=== PATIENT | male | born 1940 | race Caucasian/White ===

== ENCOUNTER → 2023-04-30 11:12 | Outpatient (REF) | payer OTHER, SELFPAY ==
[2023-04-30 16:03] LABS: % Basophils 0.8 % (0-2); % Eosinophils 2.1 % (0-6); % Immature Granulocytes 0.3 % (0-0.5); % Lymphocytes 23.8 % (20.5-51.1); % Monocytes 6.5 % (1.7-9.3); % Neutrophils 66.5 % (42.2-75.2); Absolute Eosinophils 0.1 10^3/uL (0-0.7); Absolute Lymphocytes 0.9 10^3/uL (1.2-3.4); Absolute Monocytes 0.3 10^3/uL (0.1-0.6); Absolute Neutrophils 2.6 10^3/uL (1.4-6.5); Hematocrit 37.9 % (39.0-52.0); Hemoglobin 13.4 g/dL (13.0-18.0); Mean Corp Hgb Conc. 35.4 g/dL (33.0-37.0); Mean Corpuscular Hgb 33.1 pg (27.0-31.0); Mean Corpuscular Volume 93.6 fL (80.0-94.0); Mean Platelet Volume 9.7 fL (7.4-10.4); Nucleated Red Blood Cells % 0 % (-); Platelet Count 213 10^3/uL (130-400); Red Blood Cell Count 4.05 10^6/uL (4.70-6.10); Red Cell Dist. Width 14.4 % (11.5-14.5); White Blood Cell Count 3.9 10^3/uL (4.8-10.8)
[2023-04-30 16:19] LABS: ALT (SGPT) 17 U/L (0-50); AST (SGOT) 27 U/L (17-59); Albumin 3.5 g/dl (3.5-5.0); Alkaline Phosphatase 121 U/L (38-126); Blood Urea Nitrogen 25 mg/dl (9-20); Calcium 9.4 mg/dl (8.4-10.2); Carbon Dioxide 30 mmol/L (22-30); Chloride 98 mmol/L (98-107); Glucose 90 mg/dl (70-99); HDL Cholesterol 32 mg/dl; LDL Cholesterol, Calculated 77 mg/dl; Potassium 4.7 mmol/L (3.5-5.1); Sodium 133 mmol/L (135-145); Total Bilirubin 0.6 mg/dl (0.2-1.3); Total Cholesterol 124 mg/dl (50-199); Total Protein 7.8 g/dl (6.3-8.2); Triglyceride 77 mg/dl (10-149); Very Low Density Lipoprotein 15 mg/dl (0-30); eGFR > 60.00
== END ==
LOC: HWLAB 11:12
PROVIDERS: ATTENDING PHYSICIAN Internal Medicine Cardiovascular Disease; FAMILY PHYSICIAN Family Medicine
DX: I10 Essential (primary) hypertension (principal); E78.5 Hyperlipidemia, unspecified
CPT/HCPCS: 36415; 80053; 80061; 85025

== ENCOUNTER → 2023-06-17 11:46 | Outpatient (REF) | payer OTHER, SELFPAY ==
[2023-06-17 12:20] LABS: Hematocrit 29.6 % (39.0-52.0); Hemoglobin 9.9 g/dL (13.0-18.0); Mean Corp Hgb Conc. 33.4 g/dL (33.0-37.0); Mean Corpuscular Hgb 31.8 pg (27.0-31.0); Mean Corpuscular Volume 95.2 fL (80.0-94.0); Platelet Count 373 10^3/uL (130-400); Red Blood Cell Count 3.11 10^6/uL (4.70-6.10); Red Cell Dist. Width 15.8 % (11.5-14.5); White Blood Cell Count 5.7 10^3/uL (4.8-10.8)
[2023-06-17 12:33] LABS: Blood Urea Nitrogen 17 mg/dl (9-20); Calcium 8.7 mg/dl (8.4-10.2); Carbon Dioxide 26 mmol/L (22-30); Chloride 103 mmol/L (98-107); Glucose 90 mg/dl (70-99); Magnesium 1.8 mg/dl (1.6-2.3); Potassium 4.8 mmol/L (3.5-5.1); Sodium 129 mmol/L (135-145); eGFR > 60.00
== END ==
LOC: OLABN 11:46
PROVIDERS: ATTENDING PHYSICIAN Student in an Organized Health Care Education/Training Program
DX: I10 Essential (primary) hypertension (principal)
CPT/HCPCS: 36415; 80048; 83735; 85027

== ENCOUNTER 2023-07-14 23:00 | Emergency (ER) | payer OTHER, SELFPAY ==
[2023-07-14 23:02] VITALS: BP 126/66
[2023-07-14 23:23] LABS: % Basophils 0.5 % (0-2); % Immature Granulocytes 0.3 % (0-0.5); % Lymphocytes 23.6 % (20.5-51.1); % Monocytes 10.7 % (1.7-9.3); % Neutrophils 61.9 % (42.2-75.2); Absolute Eosinophils 0.2 10^3/uL (0-0.7); Absolute Lymphocytes 1.4 10^3/uL (1.2-3.4); Absolute Monocytes 0.7 10^3/uL (0.1-0.6); Absolute Neutrophils 3.7 10^3/uL (1.4-6.5); Hematocrit 30.4 % (39.0-52.0); Hemoglobin 10.5 g/dL (13.0-18.0); Mean Corp Hgb Conc. 34.5 g/dL (33.0-37.0); Mean Corpuscular Hgb 32.5 pg (27.0-31.0); Mean Corpuscular Volume 94.1 fL (80.0-94.0); Nucleated Red Blood Cells % 0 % (-); Platelet Count 270 10^3/uL (130-400); Red Blood Cell Count 3.23 10^6/uL (4.70-6.10); Red Cell Dist. Width 16.2 % (11.5-14.5); White Blood Cell Count 6.1 10^3/uL (4.8-10.8)
--- NOTE | 2023-07-14 23:39 | ED.MUSCINJ ---
HPI-Injury
<FE Gomez - Last Filed: 07/15/23 06:17>
General
Chief Complaint: Musculo-Skeletal Complaint
Source: patient
Exam Limitations: non verbal-adult and other (Unable to understand patient)
Time Seen by Provider: 07/14/23 23:13
Travel History
Have you had any contact with someone who has COVID-19?: No
Do you have any symptoms of coronavirus? Fever > 100 degrees, chills, cough, shortness of breath, sore throat, loss of taste or smell, muscle aches, or headache?: No
History of Present Illness-Injury
Initial Injury comments:
This is an 82 YO M with a PMH of acute ischemic heart disease, hemiplegia affecting the left nondominant side, polyneuropathy, hyperlipidemia, overactive bladder, hypocalcemia, MDD, and hypo-osmolality, and hyponatremia that presents here today with
a left hip dislocation. History and exam were limited. Unable to understand patient, due to loss of teeth.
Left hip X-Ray from 07/06/23 showed superior dislocation of the left hip arthroplasty without hardware complication or acute fracture or dislocation. Degenerative change of the contralateral hip and SI joint. No joint effusion. No focal soft tissue
swelling.
Past History
<FE Gomez - Last Filed: 07/15/23 06:17>
Past History
ED Past Medical History: Hypercholesterolemia
Review of Systems
<FE Gomez - Last Filed: 07/15/23 06:17>
Review of Systems
Unable to obtain full review of systems at this time due to: other (Unable to understand patient, loss of teeth)
Phy Exam
<FE Gomez - Last Filed: 07/15/23 06:17>
Physical Exam
Physical Exam:
Regular rate and rhythm, normal respirations, bandage on left hip, left hip was internally rotated
Injury Course
<Alma Castillo, [facility] - Last Filed: 07/15/23 06:17>
Orders/Labs/Results
Orders:
Orders
07/14/23 23:18
Complete Blood Count/With Diff Urgent
Comprehensive Metabolic Panel Urgent
07/15/23 00:00
CR Hip - LT w/wo Pel 2-3 Vw* Urgent
Reason For Exam: probable dislocation
Include a pelvis x-ray?: Yes
07/15/23 01:10
Propofol [Diprivan] 20 ml .ROUTE .STK-MED
07/15/23 01:22
Propofol [Diprivan] 110 mg IV NOW STA
07/15/23 01:33
CR Hip - LT without Pel 1 Vw Stat
Comment:
Reason For Exam: L hip reduction
07/15/23 02:07
Knee Immobilizer Left-Treatmen ONCE
Knee, Left 4 or More Views [CR Knee - Left 4 Or More View*] Urgent
Comment:
Reason For Exam: pain
Abnormal Lab Results
07/14/23
23:18
RBC 3.23 L 10^6/uL
(4.70-6.10)
Hgb 10.5 L g/dL
(13.0-18.0)
Hct 30.4 L %
(39.0-52.0)
MCV 94.1 H fL
(80.0-94.0)
MCH 32.5 H pg
(27.0-31.0)
RDW 16.2 H %
(11.5-14.5)
Absolute Monos (auto) 0.7 H 10^3/uL
(0.1-0.6)
Monocytes % 10.7 H %
(1.7-9.3)
Sodium 128 L mmol/L
(135-145)
BUN 24 H mg/dl
(9-20)
Glucose 127 H mg/dl
(70-99)
Alkaline Phosphatase 156 H U/L
(38-126)
Albumin 2.7 L g/dl
(3.5-5.0)
07/14/23 23:18
07/14/23 23:18
<Mario Rodriguez, DO - Last Filed: 07/15/23 03:08>
Orders/Labs/Results
Orders:
Orders
07/14/23 23:18
Complete Blood Count/With Diff Urgent
Comprehensive Metabolic Panel Urgent
07/15/23 00:00
CR Hip - LT w/wo Pel 2-3 Vw* Urgent
Reason For Exam: probable dislocation
Include a pelvis x-ray?: Yes
07/15/23 01:10
Propofol [Diprivan] 20 ml .ROUTE .STK-MED
07/15/23 01:22
Propofol [Diprivan] 110 mg IV NOW STA
07/15/23 01:33
CR Hip - LT without Pel 1 Vw Stat
Comment:
Reason For Exam: L hip reduction
07/15/23 02:07
Knee Immobilizer Left-Treatmen ONCE
Knee, Left 4 or More Views [CR Knee - Left 4 Or More View*] Urgent
Comment:
Reason For Exam: pain
Abnormal Lab Results
07/14/23
23:18
RBC 3.23 L 10^6/uL
(4.70-6.10)
Hgb 10.5 L g/dL
(13.0-18.0)
Hct 30.4 L %
(39.0-52.0)
MCV 94.1 H fL
(80.0-94.0)
MCH 32.5 H pg
(27.0-31.0)
RDW 16.2 H %
(11.5-14.5)
Absolute Monos (auto) 0.7 H 10^3/uL
(0.1-0.6)
Monocytes % 10.7 H %
(1.7-9.3)
Sodium 128 L mmol/L
(135-145)
BUN 24 H mg/dl
(9-20)
Glucose 127 H mg/dl
(70-99)
Alkaline Phosphatase 156 H U/L
(38-126)
Albumin 2.7 L g/dl
(3.5-5.0)
07/14/23 23:18
07/14/23 23:18
Procedures
<Mario Rodriguez DO - Last Filed: 07/15/23 03:08>
Moderate Sedation
ASA Risk Score: Class III
Chart and allergies reviewed: Yes
Consent for anesthesia obtained: Yes
Time out completed (validating right patient & procedure): Yes
History of difficult intubation: No
Airway free of obstruction: Yes
Patient has a gag reflex: Yes
Patient is able to open mouth: Yes
Patient has no dentures: No
Patient has no loose teeth: No
Medication administered by Provider during Moderate Sedation: IV Propofol (mg)
Total dose administered: 100
Time drug administered: 02:20
Joint/Fracture Reduction
Left Hip:
Indication for procedure:: dislocation
Procedure completed by: myself
Consent form signed: Yes
Anesthesia/sedation: Moderate sedation
Injury was: closed
Further treatement: needs re-check only
Post reduction exam: stable
Capillary Refill: normal
<ST JaosnPA - Last Filed: 07/15/23 06:17>
MDM/Problems Addressed
Differential Diagnosis Includes:
Left hip dislocation
<FE Gomez - Last Filed: 07/15/23 06:17>
*Critical Care Note
Total Time (30-74mins, 75-104mins- exclusive of procedures): Not Applicable
<Mario Rodriguez DO - Last Filed: 07/15/23 03:08>
Update Note
Update Note:
07/15/2023 0108 AM: Spoke with Sister Nuvia Lyons gave verbal consent for the procedural sedation and closed reduction of the left hip. This was witnessed by nursing. Consent form signed and is on the chart.
Spoke with orthopedics who agreed that patient can go back to [facility] with a knee immobilizer. Satisfied with the reduction.
ED Attending Note
<FE Gomez - Last Filed: 07/15/23 06:17>
-
Portions of this chart may have been created with voice recognition software.� Occasional wrong word or��sound alike� substitutions may have occurred due to the inherent limitations of voice recognition software.
<Mario Rodriguez DO - Last Filed: 07/15/23 03:08>
ED Attending Note
Patient seen and examined by attending physician: Yes
I performed the substantive portion of visit, reviewed & personally made and approve the management plan that is documented in note by myself or DANIA.: Yes
Discharge Plan
Departure
Patient Disposition: Usp/SNF
Date of Disposition: 07/15/23
Time of Disposition: 03:07
Discharge Problem:
Dislocation, hip, Previous hip fracture, Acute knee pain
Prescriptions:
No Action
Unobtainable
0
Referrals:
Maykel Bynum MD [Active] - As needed
Stew Pisano DO [Family Provider] -
Interventions
Interventions:
*Risk Screen - Suicide Last Done: 07/14/23 23:53
*General Assessment Last Done: 07/15/23 00:37
*Neglect/Abuse Screening Last Done: 07/14/23 23:53
ED- Fall Risk Assessment Last Done: 07/14/23 23:53
*ED COVID-19 Vaccine History Last Done: 07/15/23 03:04
*Nursing Disposition Last Done: 07/15/23 03:48
ED-Musculoskeletal Assessment Last Done: 07/15/23 03:08
Discharge Date and Time
Discharge Date/Time: 07/15/23 03:54
Print Language: STATELESS
[2023-07-15] VITALS (12 sets, daily range): BP systolic 120–142; BP diastolic 58–76
[2023-07-15 00:19] LABS: ALT (SGPT) 18 U/L (0-50); AST (SGOT) 27 U/L (17-59); Albumin 2.7 g/dl (3.5-5.0); Alkaline Phosphatase 156 U/L (38-126); Blood Urea Nitrogen 24 mg/dl (9-20); Calcium 9.1 mg/dl (8.4-10.2); Carbon Dioxide 24 mmol/L (22-30); Chloride 99 mmol/L (98-107); Glucose 127 mg/dl (70-99); Potassium 4.9 mmol/L (3.5-5.1); Sodium 128 mmol/L (135-145); Total Bilirubin 0.4 mg/dl (0.2-1.3); Total Protein 7.1 g/dl (6.3-8.2); eGFR > 60.00
[2023-07-15] MEDS: DIPRIVAN 110 MG IV (01:22)
== END 2023-07-15 03:54 ==
LOC: EMR 23:00
PROVIDERS: EMERGENCY PHYSICIAN Student in an Organized Health Care Education/Training Program; FAMILY PHYSICIAN Student in an Organized Health Care Education/Training Program
DX: T84.021A Dislocation of internal left hip prosthesis, initial encounter (principal); Y79.2 Prosthetic and other implants, materials and accessory orthopedic devices associated with adverse incidents; I24.9 Acute ischemic heart disease, unspecified; G62.9 Polyneuropathy, unspecified; E78.00 Pure hypercholesterolemia, unspecified; N32.81 Overactive bladder
CPT/HCPCS: 99284; 27265; 99152; 73501; 73502; 73564; 80053; 85025

== ENCOUNTER 2023-08-26 11:37 | Emergency (ER) | payer OTHER, SELFPAY ==
[2023-08-26 11:40] VITALS: BP 124/64
[2023-08-26 11:42] VITALS: BP 124/64; BMI 21.8
[2023-08-26 12:16] LABS: % Basophils 0.2 % (0-2); % Eosinophils 0.1 % (0-6); % Immature Granulocytes 0.2 % (0-0.5); % Lymphocytes 3.7 % (20.5-51.1); % Monocytes 2.9 % (1.7-9.3); % Neutrophils 92.9 % (42.2-75.2); Absolute Lymphocytes 0.5 10^3/uL (1.2-3.4); Absolute Monocytes 0.4 10^3/uL (0.1-0.6); Hematocrit 34.9 % (39.0-52.0); Hemoglobin 11.6 g/dL (13.0-18.0); Mean Corp Hgb Conc. 33.2 g/dL (33.0-37.0); Mean Corpuscular Hgb 31.5 pg (27.0-31.0); Mean Corpuscular Volume 94.8 fL (80.0-94.0); Mean Platelet Volume 9.6 fL (7.4-10.4); Nucleated Red Blood Cells % 0 % (-); Platelet Count 221 10^3/uL (130-400); Red Blood Cell Count 3.68 10^6/uL (4.70-6.10); Red Cell Dist. Width 15.4 % (11.5-14.5); White Blood Cell Count 12.9 10^3/uL (4.8-10.8)
--- NOTE | 2023-08-26 12:25 | ED.GENMED ---
History of Present Illness
General
Chief Complaint: Abdominal Symptoms
Source: ambulance crew and long-term
Time Seen by Provider: 08/26/23 11:58
History of Present Illness
History of Present Illness:
82-year-old male presents to to the emergency room from long-term for evaluation of nausea vomiting. Staff also felt as if his abdomen was distended. Patient has had a significant ischemic stroke in the past resulting in left hemiplegia.
Patient has some difficulty communicating. Patient seems to refute abdominal pain at this point. No vomiting here.
Past History
Past History
ED Past Medical History: Hypercholesterolemia
Phy Exam
Physical Exam
Physical Exam:
General: Awake, Alert, communicatively disabled from previous CVA
Vitals: Rectal temp of 101.7
Head: Atraumatic
Eyes: Pupils equal, EOMI
Throat: Airway intact, no exudates, mildly dry mucosa
Neck: Trachea midline
Lungs: Clear and equal b/l
Heart: Regular rate, no murmurs
Abd: Soft, distended but does not appear to be tender, No pulsatile mass
Rectal: Liquid stool noted
Neuro: Left hemiplegia
Skin: Warm, dry, no rash
Extremities: pulses equal b/l, no edema
Scores
PESI
Age: 82
Sex: Male
History of cancer: No
History of heart failure: No
History of chronic lung disease: No
Heart rate >/= 110: No
Systolic BP <100 mmHg: No
Respiratory rate >/= 30: No
Temperature <36�C/96.8�F: No
Altered mental status (disorientation, lethargy, stupor, or coma): No
O2 saturation <90%: No
Score: 94
Class: Class 3: <106 (moderate mortality 3.2-7.1%)
Course
Orders/Labs/Results
Orders:
Orders
08/26/23 11:38
IV Insert/Care/Rem.- Treatment PRN
08/26/23 11:49
EKG [Electrocardiogram (*1)] Urgent
Reason for Study: Shortness of Breath
EKG- Treatment ONCE
08/26/23 11:51
Complete Blood Count/With Diff Urgent
Comprehensive Metabolic Panel Urgent
Lipase Urgent
Urinalysis Reflex To Culture Urgent
Date Specimen was Collected: 08/26/23
Time Specimen was Collected: 11:39
08/26/23 12:23
CR Chest - 2 Views Urgent
Comment:
Reason For Exam: fever
08/26/23 12:24
CT Abd/pelvis W Iv Cont Urgent
Comment:
Reason For Exam: fever, abd pain and distension
0.9% Sodium Chloride 500 ml [Nss] 500 ml IV BOLUS
Acetaminophen [Tylenol] 650 mg PO NOW STA
08/26/23 12:35
COVID-19 Antigen Urgent
Source: Nasal Swab
Lactic Acid Urgent
08/26/23 14:43
LevoFLOXacin [Levaquin] 500 mg PO NOW STA
08/26/23 14:45
Enema- Treatment ONCE
Type: Milk of Molasses
Abnormal Lab Results
08/26/23
11:51
WBC 12.9 H 10^3/uL
(4.8-10.8)
RBC 3.68 L 10^6/uL
(4.70-6.10)
Hgb 11.6 L g/dL
(13.0-18.0)
Hct 34.9 L %
(39.0-52.0)
MCV 94.8 H fL
(80.0-94.0)
MCH 31.5 H pg
(27.0-31.0)
RDW 15.4 H %
(11.5-14.5)
Absolute Neuts (auto) 12.0 H 10^3/uL
(1.4-6.5)
Absolute Lymphs (auto) 0.5 L 10^3/uL
(1.2-3.4)
Neutrophils % 92.9 H %
(42.2-75.2)
Lymphocytes % 3.7 L %
(20.5-51.1)
Sodium 129 L mmol/L
(135-145)
Glucose 114 H mg/dl
(70-99)
Alkaline Phosphatase 148 H U/L
(38-126)
Albumin 2.9 L g/dl
(3.5-5.0)
08/26/23 11:51
08/26/23 11:51
Vital Signs
Initial and Last Documented VS:
Initial Vital Signs
BP
124/64
08/26/23 11:40
Last Documented Vital Signs
Temp Pulse Resp BP Pulse Ox
101.7 F H 76 24 128/71 92
08/26/23 12:41 08/26/23 15:00 08/26/23 11:42 08/26/23 15:00 08/26/23 14:30
MDM/Problems Addressed
Differential Diagnosis Includes:
Diverticulitis, obstruction, constipation, urinary tract infection, pneumonia
MDM/Problems Addressed:
Patient found to have a fever here 107. Tylenol given for this. Source of the fever appears to be pneumonia. Patient's urine is not consistent with urinary tract infection. His chest x-ray does show right lower lobe infiltrate. White count
mildly elevated at 12.9. Patient's not hypoxic. He is tolerating oral intake. He has not vomited here at all. CT of the abdomen pelvis was performed given the fever, vomiting and reported abdominal distention. CT shows constipation but no other
acute inflammatory abnormalities in the abdomen. Patient seems stable enough for outpatient management. Vocalizes enema given for constipation. Will also discharge the patient on lactulose.
*Radiology
Radiology exam reviewed: radiology read reviewed
*Pulse Oximetry
Patient hypoxic: no
*EKG
Interpreted by ED Provider?: Yes
Interpretation: abnormal
Heart Rate: 85
Rate: normal
Rhythm: sinus and PAC's
QRS Pattern: normal QRS
Ischemia: no ischemia
*Critical Care Note
Total Time (30-74mins, 75-104mins- exclusive of procedures): Not Applicable
Patient Management
Social determinants of health affecting care: Living situation
ED Attending Note
-
Portions of this chart may have been created with voice recognition software.� Occasional wrong word or��sound alike� substitutions may have occurred due to the inherent limitations of voice recognition software.
Discharge Plan
Departure
Patient Disposition: Skilled Nursing/SNF
Date of Disposition: 08/26/23
Time of Disposition: 14:43
Condition: Good
Discharge Problem:
Pneumonia, Constipation
Instructions: Constipation, Adult (DC), Pneumonia
Prescriptions:
New
levofloxacin 750 mg tablet
750 mg PO DAILY 5 Days Qty: 5 0RF
lactulose 10 gram/15 mL solution
10 g PO DAILY PRN (Reason: Constipation) Qty: 473 0RF
Referrals:
Stew Pisano DO [Family Provider] -
Activity Restrictions/Additional Instructions:
Eulogio has not vomited here in the ER but did have a fever. His chest x-ray shows signs of pneumonia on the right for which we have prescribed Levaquin for 5 days. He also is having some constipation. We gave an enema here and will prescribe a
medication called lactulose to use once a day until he is 'cleared out'.
Interventions
Interventions:
*Risk Screen - Suicide Last Done: 08/26/23 11:42
*General Assessment Last Done: 08/26/23 11:42
*Neglect/Abuse Screening Last Done: 08/26/23 11:42
ED- Fall Risk Assessment Last Done: 08/26/23 11:53
QB-Ezqnha-Mhucisuopl Assessment Last Done: 08/26/23 11:53
Discharge Date and Time
Print Language: LAO
[2023-08-26 12:31] LABS: ALT (SGPT) 20 U/L (0-50); AST (SGOT) 31 U/L (17-59); Albumin 2.9 g/dl (3.5-5.0); Alkaline Phosphatase 148 U/L (38-126); Blood Urea Nitrogen 19 mg/dl (9-20); Calcium 9.3 mg/dl (8.4-10.2); Carbon Dioxide 25 mmol/L (22-30); Chloride 100 mmol/L (98-107); Estimated Creatinine Clearance 74 ml/min; Glucose 114 mg/dl (70-99); Lipase 31 U/L (23-300); Potassium 4.7 mmol/L (3.5-5.1); Sodium 129 mmol/L (135-145); Total Bilirubin 0.7 mg/dl (0.2-1.3); Total Protein 7.6 g/dl (6.3-8.2); eGFR > 60.00
[2023-08-26] MEDS: TYLENOL 650 MG PO (12:40)
[2023-08-26] MEDS: NSS 500 IV (12:40)
[2023-08-26 12:46] LABS: Urine Albumin Negative (Neg - Trace); Urine Bilirubin Negative (Negative); Urine Character Clear (Clear); Urine Color Yellow; Urine Glucose Negative (Negative); Urine Ketone Negative (Negative); Urine Leukocyte Negative (Negative); Urine Nitrite Negative (Negative); Urine Occult Blood Negative (Negative); Urine Specific Gravity 1.015 (<1.030); Urine Urobilinogen Negative (Neg - 1+); Urine pH 6.5 (5.0-9.0)
[2023-08-26 13:00] VITALS: BP 113/52
[2023-08-26 13:00] LABS: COVID-19 Antigen Negative (Negative); Lactic Acid 1.2 mmol/L (0.7-2.0)
[2023-08-26 14:30] VITALS: BP 116/58
[2023-08-26 15:00] VITALS: BP 128/71
[2023-08-26] MEDS: LEVAQUIN 500 MG PO (15:25)
== END 2023-08-26 18:09 ==
LOC: EMR 11:37
PROVIDERS: EMERGENCY PHYSICIAN Emergency Medicine; FAMILY PHYSICIAN Student in an Organized Health Care Education/Training Program
DX: J18.9 Pneumonia, unspecified organism (principal); K59.00 Constipation, unspecified; E78.00 Pure hypercholesterolemia, unspecified; Z96.642 Presence of left artificial hip joint
CPT/HCPCS: 99284; 71046; 74177; 80053; 81003; 83605; 83690; 85025; 87811; 93005; Q9967

== ENCOUNTER → 2024-03-11 08:43 | Outpatient (REF) | payer OTHER, SELFPAY ==
[2024-03-11 10:24] LABS: % Basophils 0.4 % (0-2); % Immature Granulocytes 0.4 % (0-0.5); % Lymphocytes 13.8 % (20.5-51.1); % Monocytes 11.1 % (1.7-9.3); % Neutrophils 74.3 % (42.2-75.2); Absolute Lymphocytes 0.3 10^3/uL (1.2-3.4); Absolute Monocytes 0.3 10^3/uL (0.1-0.6); Absolute Neutrophils 1.7 10^3/uL (1.4-6.5); Hematocrit 30.6 % (39.0-52.0); Mean Corp Hgb Conc. 32.7 g/dL (33.0-37.0); Mean Corpuscular Hgb 32.7 pg (27.0-31.0); Mean Platelet Volume 9.2 fL (7.4-10.4); Nucleated Red Blood Cells % 0 % (-); Platelet Count 174 10^3/uL (130-400); Red Blood Cell Count 3.06 10^6/uL (4.70-6.10); Red Cell Dist. Width 16.2 % (11.5-14.5); White Blood Cell Count 2.3 10^3/uL (4.8-10.8)
[2024-03-11 10:34] LABS: Blood Urea Nitrogen 23 mg/dl (9-20); Calcium 8.5 mg/dl (8.4-10.2); Carbon Dioxide 24 mmol/L (22-30); Chloride 100 mmol/L (98-107); Glucose 83 mg/dl (70-99); Potassium 4.6 mmol/L (3.5-5.1); Sodium 129 mmol/L (135-145); eGFR > 60.00
[2024-03-11 10:41] LABS: NT-proBNP 4050 pg/ml
== END ==
LOC: OLABN 08:43
PROVIDERS: ATTENDING PHYSICIAN Student in an Organized Health Care Education/Training Program
DX: R05.9 Cough, unspecified (principal); R11.10 Vomiting, unspecified
CPT/HCPCS: 36415; 80048; 83880; 85025

== ENCOUNTER 2024-03-11 17:35 | Inpatient (IN) | payer OTHER, SELFPAY ==
[2024-03-11 13:33] VITALS: BP 109/52
[2024-03-11 13:52] LABS: % Basophils 0.5 % (0-2); % Immature Granulocytes 0.5 % (0-0.5); % Lymphocytes 15.4 % (20.5-51.1); % Neutrophils 73.6 % (42.2-75.2); Absolute Lymphocytes 0.3 10^3/uL (1.2-3.4); Absolute Monocytes 0.2 10^3/uL (0.1-0.6); Absolute Neutrophils 1.5 10^3/uL (1.4-6.5); Hematocrit 30.6 % (39.0-52.0); Hemoglobin 10.5 g/dL (13.0-18.0); Mean Corp Hgb Conc. 34.3 g/dL (33.0-37.0); Mean Corpuscular Hgb 32.9 pg (27.0-31.0); Mean Corpuscular Volume 95.9 fL (80.0-94.0); Mean Platelet Volume 8.4 fL (7.4-10.4); Nucleated Red Blood Cells % 0 % (-); Platelet Count 171 10^3/uL (130-400); Red Blood Cell Count 3.19 10^6/uL (4.70-6.10); Red Cell Dist. Width 15.9 % (11.5-14.5)
--- NOTE | 2024-03-11 14:54 | ED.GENMED ---
History of Present Illness
General
Chief Complaint: Abnormal Lab Value
Time Seen by Provider: 03/11/24 14:50
History of Present Illness
History of Present Illness:
Patient is a 83-year-old male with history of prior CVA with left-sided deficits presenting to the emergency department low white count. Patient presents from [facility] for low WBC seen on labs. Patient is unable to provide any additional
information. He denies any chest pain difficulty breathing nausea vomiting or abdominal pain. He does have a cough. He is unable to provide any additional information on this cough.
Past History
Past History
ED Past Medical History: Hypercholesterolemia
Phy Exam
Physical Exam
Physical Exam:
GENERAL: in no acute distress
HEENT: normocephalic, extraocular movements intact, dry oral mucosa
NECK: normal inspection
RESPIRATORY: no respiratory distress, anterior breath sounds coarse worse on the right than the left
CARDIOVASCULAR: regular rate and rhythm
ABDOMEN/: soft, non-distended, non-tender to palpation, no rebound or guarding
EXTREMITIES: non-tender, no edema/swelling
NEUROLOGIC: awake and alert, moves all extremities
SKIN: warm
Course
Orders/Labs/Results
Orders:
Orders
03/11/24 13:40
Complete Blood Count/With Diff Urgent
03/11/24 14:53
CR Chest - 2 Views Urgent
Comment:
Reason For Exam: cough
03/11/24 14:59
Electrocardiogram (*1) Urgent
Reason for Study: Abdominal Pain
CT Abd/pelvis W Iv Cont Urgent
Comment:
Reason For Exam: abdominal pain
EKG- Treatment ONCE
03/11/24 15:00
COVID-19 Antigen Urgent
Source: Nasal Swab
Influenza A+B Rapid Molecular Urgent
ARMIDA Source: Nasal Swab
Specimen Description:
03/11/24 15:33
Comprehensive Metabolic Panel Urgent
Urinalysis Reflex To Culture Urgent
Date Specimen was Collected: 03/11/24
Time Specimen was Collected: 15:02
03/11/24 15:57
Acetaminophen [Tylenol] 650 mg PO NOW STA
Vancomycin [Vancocin] 1,500 mg 0.9% Sodium Chloride 500 ml [Nss] 500 ml IV NOW
03/11/24 15:59
Aztreonam [Azactam] 2,000 mg IV NOW STA
03/11/24 16:00
Azithromycin 500 mg IVPB NOW Azithromycin 500 mg/250 ml [Zithromax Infusion] 500 mg in 250 ml IV NOW
Abnormal Lab Results
03/11/24
13:40
WBC 2.0 L* 10^3/uL
(4.8-10.8)
RBC 3.19 L 10^6/uL
(4.70-6.10)
Hgb 10.5 L g/dL
(13.0-18.0)
Hct 30.6 L %
(39.0-52.0)
MCV 95.9 H fL
(80.0-94.0)
MCH 32.9 H pg
(27.0-31.0)
RDW 15.9 H %
(11.5-14.5)
Absolute Lymphs (auto) 0.3 L 10^3/uL
(1.2-3.4)
Lymphocytes % 15.4 L %
(20.5-51.1)
Monocytes % 10.0 H %
(1.7-9.3)
03/11/24 13:40
Vital Signs
Initial and Last Documented VS:
Initial Vital Signs
Temp Pulse Resp BP Pulse Ox
98.8 F 59 20 109/52 94
03/11/24 13:33 03/11/24 13:33 03/11/24 13:33 03/11/24 13:33 03/11/24 13:33
Last Documented Vital Signs
Temp Pulse Resp BP Pulse Ox
100.9 F H 59 20 109/52 94
03/11/24 15:35 03/11/24 13:33 03/11/24 13:33 03/11/24 13:33 03/11/24 13:33
MDM/Problems Addressed
Differential Diagnosis Includes:
Patient is a 83-year-old man presenting to the emergency department with low WBC seen on outpatient labs. On arrival here patient does have a cough but otherwise provides no complaints. History is limited. On exam he does have coarse breath
sounds anteriorly. Blood work obtained prior to evaluation does show isolated leukopenia. CMP pending. Will obtain COVID flu swab and obtain a chest xray
Discussed with Kalpesh Morgan. Patient was diagnosed with pneumonia finished Levaquin 2 days ago. Yesterday he was complaining of epigastric abdominal pain and was found to have urinary incontinence which is unusual. He is at his mental status
baseline. He does have some cognitive impairment.
*Critical Care Note
Total Time (30-74mins, 75-104mins- exclusive of procedures): Not Applicable
Update Note
Update Note:
Chest x-ray per my interpretation with right basilar pneumonia. He is flu positive. Given the patient was given Levaquin we will give aztreonam and azithromycin as well as vancomycin given risk factors. Urinalysis negative for UTI. Discussed
with hospitalist who accepted patient to their service. CMP and CT scan pending
ED Attending Note
-
Portions of this chart may have been created with voice recognition software.� Occasional wrong word or��sound alike� substitutions may have occurred due to the inherent limitations of voice recognition software.
Discharge Plan
Departure
Patient Disposition: Admit
Date of Disposition: 03/11/24
Time of Disposition: 16:02
Presentation/result/management discussed w/ accepting MD/DO: Hospitalist
Discharge Problem:
Pneumonia, Flu
Prescriptions:
No Action
atorvastatin [Lipitor] 40 mg Tablet
40 mg PO QPM
acetaminophen [Tylenol] 325 mg Tablet
650 mg PO Q6HPRN PRN (Reason: mild pain)
ipratropium-albuterol [DuoNeb] 0.5 mg-3 mg(2.5 mg base)/3 mL Solution For Nebulization
3 ml INHALATION R TIDPRN PRN (Reason: sob)
lidocaine 4 % Adhesive Patch,Medicated
2 patch TOPICAL DAILY
Rx Instructions:
left side anterior rib cage and left side mid posterior rib cage
polyethylene glycol 3350 [Miralax] 17 gram Powder In Packet
17 g PO DAILY
ketotifen fumarate 0.025 % (0.035 %) Drops
1 drp BOTH EYES DAILY
sodium chloride 1 gram Tablet
1,000 mg PO BID
clopidogrel [Plavix] 75 mg Tablet
75 mg PO DAILY
tramadol 50 mg Tablet
50 mg PO BID
omeprazole 10 mg Capsule,Delayed Release(Dr/Ec)
10 mg PO DAILY
magnesium hydroxide [Milk of Magnesia] 400 mg/5 mL Suspension
2,400 mg PO HSPRN PRN (Reason: constipation)
tamsulosin [Flomax] 0.4 mg Capsule
0.4 mg PO HS
bisacodyl [Dulcolax (bisacodyl)] 10 mg Suppository
10 mg PA [id number] PRN (Reason: if no bm aftr mom)
oxybutynin chloride 5 mg Tablet Extended Release 24hr
5 mg PO DAILY
aspirin 81 mg Tablet,Chewable
81 mg PO DAILY
pyridoxine (vitamin B6) 100 mg Tablet
100 mg PO DAILY
albuterol sulfate [ProAir HFA] 90 mcg/actuation Hfa Aerosol Inhaler
2 puff INHALATION R Q6HPRN PRN (Reason: sob)
ipratropium bromide 21 mcg (0.03 %) [place],Non-Aerosol
2 spray INTRANASAL BID
finasteride 5 mg Tablet
5 mg PO DAILY
Saline Nasal 0.65 % Aerosol,[place]
1 spray INTRANASAL QIDPRN PRN (Reason: dryness)
duloxetine [Cymbalta] 20 mg Capsule,Delayed Release(Dr/Ec)
20 mg PO DAILY
lactulose 10 gram/15 mL Solution
10 g PO DAILYPRN PRN (Reason: cosntipation)
calcium carbonate-vitamin D3 [Calcium 500 + D] 500 mg-10 mcg (400 unit) Tablet
1 tab PO DAILY
Refresh Optive 0.5-0.9 % Drops
1 drp BOTH EYES BID
Linzess 72 mcg Capsule
72 mcg PO DAILY
Referrals:
UNKNOWN - PT DOES,NOT KNOW [Family Provider] -
Interventions
Interventions:
*Risk Screen - Suicide Last Done: 03/11/24 13:33
*General Assessment Last Done: 03/11/24 13:33
*Neglect/Abuse Screening Last Done: 03/11/24 13:33
ED- Fall Risk Assessment Last Done: 03/11/24 15:35
*ED COVID-19 Vaccine History Last Done: 03/11/24 13:33
Discharge Date and Time
Print Language: SPANISH
[2024-03-11 15:21] LABS: COVID-19 Antigen Negative (Negative)
[2024-03-11 15:41] LABS: Urine Albumin Trace (Neg - Trace); Urine Bilirubin Negative (Negative); Urine Character Clear (Clear); Urine Color Yellow; Urine Glucose Negative (Negative); Urine Ketone Negative (Negative); Urine Leukocyte Negative (Negative); Urine Nitrite Negative (Negative); Urine Occult Blood Negative (Negative); Urine Urobilinogen Negative (Neg - 1+)
[2024-03-11 16:10] LABS: ALT (SGPT) 15 U/L (0-50); AST (SGOT) 26 U/L (17-59); Albumin 2.4 g/dl (3.5-5.0); Alkaline Phosphatase 132 U/L (38-126); Blood Urea Nitrogen 25 mg/dl (9-20); Calcium 8.9 mg/dl (8.4-10.2); Carbon Dioxide 24 mmol/L (22-30); Chloride 100 mmol/L (98-107); Glucose 96 mg/dl (70-99); Potassium 4.8 mmol/L (3.5-5.1); Sodium 129 mmol/L (135-145); Total Bilirubin 0.2 mg/dl (0.2-1.3); Total Protein 7.1 g/dl (6.3-8.2); eGFR > 60.00
[2024-03-11] MEDS: TYLENOL 650 MG PO (16:10)
[2024-03-11] MEDS: AZACTAM 2000 MG IV (16:10)
[2024-03-11] MEDS: ZITHROMAX INFUSION 250 IV (16:14)
--- NOTE | 2024-03-11 16:26 | HPS.HSE ---
Family Physician
-
Family Physician: NOT KNOW UNKNOWN - PT DOES
Chief Complaint
-
Cough
History of Present Illness
Patient is 83-year-old male past medical history of CAD, CVA with residual left hemiparesis, chronic hyponatremia and depression who presents with cough. Patient is a limited historian due to significant intellectual disability. Patient had blood
work this morning at the detention that revealed very low white blood cell count new sent to the emergency department for evaluation. In the emergency department he is noted to have significant cough and was found to have fever. There were some
reports that patient been complaining of lower abdominal pain.
Medical History
Past Medical History
Past Medical History: Reports Other
Additional Past Medical History:
Coronary Artery Disease (possible stent)
CVA with Residual Left Hemiparesis
Hyperlipidemia
Chronic Hyponatremia
Depression
Overactive Bladder
BPH
GERD
Chronic Constipation
Past Surgical History: Reports Other
Additional Past Surgical History:
Left Hip Replacement
Hernia Repair
Social History
Unable to obtain full social history at this time due to: Other (Intellectual Disability)
Family History
Family History: Unable to Obtain
Allergies / Home Medications
Allergies reflects when Allergies were last updated in [facility].
Home Medications with original date entered in [facility]
Allergy/Medication List:
Allergies
Allergy/AdvReac Type Severity Reaction Status Date / Time
Penicillins Allergy Unknown Unknown Verified 03/11/24 13:35
Home Medications
acetaminophen 325 mg tablet (Tylenol) 650 mg PO Q6HPRN PRN mild pain 03/11/24
albuterol sulfate 90 mcg/actuation aerosol inhaler 2 puff inhalation R Q6HPRN PRN sob 03/11/24
aspirin 81 mg chewable tablet 81 mg PO DAILY 03/11/24
atorvastatin 40 mg tablet (Lipitor) 40 mg PO QPM 03/11/24
bisacodyl 10 mg rectal suppository (Dulcolax (bisacodyl)) 10 mg MS [id number] PRN if no bm aftr mom 03/11/24
calcium 500 mg (as carbonate)-vitamin D3 10 mcg (400 unit) tablet (Calcium 500 + D) 1 tab PO DAILY 03/11/24
carboxymethylcellulose 0.5 %-glycerin 0.9 % eye drops (Refresh Optive) 1 drp BOTH EYES BID 03/11/24
clopidogrel 75 mg tablet (Plavix) 75 mg PO DAILY 03/11/24
duloxetine 20 mg capsule,delayed release (Cymbalta) 20 mg PO DAILY 03/11/24
finasteride 5 mg tablet 5 mg PO DAILY 03/11/24
ipratropium 0.5 mg-albuterol 3 mg (2.5 mg base)/3 mL nebulization soln 3 ml inhalation R TIDPRN PRN sob 03/11/24
ipratropium bromide 21 mcg (0.03 %) nasal spray 2 spray intranasal BID 03/11/24
ketotifen fumarate 0.025 % (0.035 %) eye drops 1 drp BOTH EYES DAILY 03/11/24
lactulose 10 gram/15 mL oral solution 10 g PO DAILYPRN PRN cosntipation 03/11/24
lidocaine 4 % topical patch 2 patch topical DAILY 03/11/24
linaclotide 72 mcg capsule (Linzess) 72 mcg PO DAILY 03/11/24
magnesium hydroxide 400 mg/5 mL oral suspension (Milk of Magnesia) 2,400 mg PO HSPRN PRN constipation 03/11/24
omeprazole 10 mg capsule,delayed release 10 mg PO DAILY 03/11/24
oxybutynin chloride 5 mg tablet,extended release 24 hr 5 mg PO DAILY 03/11/24
polyethylene glycol 3350 17 gram oral powder packet (Miralax) 17 g PO DAILY 03/11/24
pyridoxine (vitamin B6) 100 mg tablet 100 mg PO DAILY 03/11/24
sodium chloride 0.65 % nasal spray aerosol (Saline Nasal) 1 spray intranasal QIDPRN PRN dryness 03/11/24
sodium chloride 1 gram tablet 1,000 mg PO BID 03/11/24
tamsulosin 0.4 mg capsule (Flomax) 0.4 mg PO HS 03/11/24
tramadol 50 mg tablet 50 mg PO BID 03/11/24
Review of Systems
-
Unable to obtain full review of systems at this time due to: Other (Intellectual Disability)
Physical Exam
Vital Signs
Vital Signs
Temp Pulse Resp BP Pulse Ox
100.9 F H 59 20 109/52 94
03/11/24 15:35 03/11/24 13:33 03/11/24 13:33 03/11/24 13:33 03/11/24 13:33
Physical Exam
General: Well Developed and Well Nourished
HEENT: Anicteric and Moist mucous membranes
Respiratory: Rhonchi (Right greater than Left)
Cardiac: S1/S2 and Regular Rhythm
GI: Soft and Tender (Mild left lower quadrant)
Rectal: Deferred by Provider
Musculoskeletal: No Clubbing, No Cyanosis and No Edema
Skin: Warm and Dry
Neuro: Awake and Alert
Psych: Calm
Laboratory Results
-
03/11/24 13:40
03/11/24 15:33
Laboratory Results
Total Bilirubin 0.2 mg/dl (0.2-1.3) 03/11/24 15:33
AST 26 U/L (17-59) 03/11/24 15:33
ALT 15 U/L (0-50) 03/11/24 15:33
Alkaline Phosphatase 132 U/L (38-126) H 03/11/24 15:33
Data Reviewed
-
Diagnostic Radiology: Report Reviewed by me
CT Scan: Report Reviewed by me
Lab Data: Labs Reviewed by me
Impression/Plan
-
Sepsis secondary to Pneumonia in setting of Influenza Type A
-Continue Tamiflu, Ceftriaxone and Azithromycin
-Continue Mucinex
Severe Constipation
-Give milk and molasses enema
-Increase Miralax BID
-Continue Linzess
Hyponatremia, suspect more chronic than acute
-Continue sodium tabs as prior to admission
-Check urine sodium and urine osmo
Coronary Artery Disease (possible stent)
CVA with Residual Left Hemiparesis
-Continue aspirin and Plavix
Hyperlipidemia
-Continue atorvastatin
Depression
-Continue Cymbalta
BPH
-Continue finasteride and tamsulosin
-Monitor bladder scan
DVT proph: Lovenox
Code Status: DNR per MD paperwork/POLST
--- NOTE | 2024-03-11 17:01 | W.PN.UPDATE ---
Update Note
Progress Note Update
This is an addendum to H&P written by YOVANY Dean
I saw and examined the patient.
The DINING ROOM COORDINATOR's note was reviewed and I agree with the note.
Comment:
Mr. Eulogio Acevedo is a 83 yo man with hx CVA with left-sided deficits, HLD sent to the ER from [facility] for low WBC seen on labs, + cough.
Triage VS: T 98.8 up to 101.7, P 59, RR 20, BP 109/52, SpO2 94%
On exam patient is frail appearing, in no distress. Chest: rhonchi, no wheezing, abdomen distended, no LE swelling
LABS: WBC 2, Hg 10.5, PLT 171, Na 129, K+ 4.8, Cl 100, BUN 25, Cr 0.8, Glucose 96, Liver enzyme WNL
covid negative
Influenza A positive
CXR
IMPRESSION:
Right basilar pneumonia.
CT A/P:
IMPRESSION:
1). There is large volume feces throughout the colon suggesting constipation.
2).There is moderate parenchymal air space disease at the posterior lung bases which may be scarring, pneumonia or atelectasis.
There is parenchymal airspace disease is not significantly changed dating back to 08/26/2023 suggesting that it is more likely chronic than acute.
Influenza A with superimposed community Acquired pneumonia
Sepsis 2/2 above
-admit to med/surg
-Tamiflu
-Cef/Azithro (hx rash to penicillin - confirmed with sister)
-gentle IVF given sepsis
Abdominal Pain
Constipation
Hyponatremia - chronic
-follow up urine studies
-continue ELIGIBILITY CLERK NaCl
-gentle fluids as above
Hx CVA
HLD
-ELIGIBILITY CLERK asa/Plavix/statin
BPH - ELIGIBILITY CLERK Finasteride
Remainder of plan per PA note
DNR - patient with POLST
76 minutes spent on patient care
[2024-03-11 17:52] LABS: Osmolality Urine 624 mOsm/kg (300-900)
[2024-03-11 18:10] LABS: Urine Sodium 95 mmol/L (30-90)
[2024-03-11 19:42] VITALS: BP 124/60
--- NOTE | 2024-03-11 20:30 | PTCARENOTE ---
Late Entry 2030: Received patient from ED. Patient very hard of hearing and has speech impediment, poor historian. Assessment completed. VSS. Spoke with sister for admission details. Bed alarm placed for patient safety. Call hylton in reach.
[2024-03-11] MEDS: SODIUM CHLORIDE 1 GRAM PO (20:47)
[2024-03-11] MEDS: LOVENOX 40 MG SC (20:47)
[2024-03-11] MEDS: LIPITOR 40 MG PO (20:47)
[2024-03-11] MEDS: MUCINEX 600 MG PO (20:47)
[2024-03-11] MEDS: TAMIFLU 75 MG PO (20:47)
[2024-03-11] MEDS: NSS 1000 IV (20:50)
[2024-03-11] MEDS: VANCOCIN 530 MG IV (20:52)
[2024-03-11] MEDS: MIRALAX 17 GRAMS PO (21:13)
[2024-03-11] MEDS: FLOMAX 0.4 MG PO (21:19)
[2024-03-11 23:14] VITALS: BP 115/67
[2024-03-11] MEDS: ROCEPHIN 1000 MG IV (23:39)
[2024-03-11] MEDS: STERILE WATER FOR INJECTION 10 ML IV (23:41)
--- NOTE | 2024-03-12 00:35 | PTCARENOTE ---
Patient refusing enema. Also patients daughter called and spoke with patient and was concerned of patient acting 'loopy'. Advised covering provider.
--- NOTE | 2024-03-12 02:16 | PTCARENOTE ---
Patient tolerated a Milk of Molasses enema. Patient had a large soft formed brown stool.
--- NOTE | 2024-03-12 02:27 | PTCARENOTE ---
Patient agreed to and tolerated enema. Large soft brown stool resulted.
[2024-03-12 06:00] VITALS: BMI 20.1
[2024-03-12 07:30] VITALS: BP 132/76
--- NOTE | 2024-03-12 07:59 | W.PN.HOSP.TC ---
Today's Communication/Plan
-
see bold
Assessment / Plan
Assessment / Plan
83-year-old male past medical history of CAD, CVA with residual left hemiparesis, chronic hyponatremia and depression who presents with cough. Patient is a limited historian due to significant intellectual disability. Patient had blood work this
morning at the care home that revealed very low white blood cell count new sent to the emergency department for evaluation. In the emergency department he is noted to have significant cough and was found to have fever. There were some reports
that patient been complaining of lower abdominal pain.
Sepsis secondary to Pneumonia in setting of Influenza Type A
-Continue Tamiflu D2, Ceftriaxone D2 and Azithromycin D2
-Continue Mucinex, bronchodilators, supportive care
Severe Constipation
-S/p milk and molasses enema
-Increased Miralax BID, add senna S twice daily
-Continue Linzess
Chronic hyponatremia
-Continue sodium tabs, fluid restrict, trend sodium
Coronary Artery Disease (possible stent)
CVA with Residual Left Hemiparesis
-Continue aspirin, Plavix, and statin
-Resides at [place]
Hyperlipidemia
-Continue atorvastatin
Depression
-Continue Cymbalta
BPH
-Continue finasteride and tamsulosin
-Monitor bladder scan
DVT proph: Lovenox
Code Status: DNR per [place] paperwork/POLST
Total time spent to see the patient on the floor, examine the patient, review data and lab results, discuss treatment plan with patient, nursing staff around 51 minutes.
Physical Exam
General: No acute distress
HEENT: Normocephalic, Atraumatic, EOMI, MMM
Respiratory: Scattered rhonchi
Cardiac: Normal S1/S2, Regular Rate and Rhythm
GI: Soft, Nontender, Nondistended, Normal Bowel Sounds
Extremities: No Clubbing, Cyanosis, or Edema
Neuro:
Chronic dysarthria
Chronic left-sided weakness
Psych: Calm, Cooperative
Anticipated Discharge: > 48 hours
Subjective/Interval History
-
Date of Service: March 12, 2024
Patient continues to be febrile. He is coughing.
Objective Data
-
Labs:
Laboratory Results
03/12/24
07:47
WBC Pending
Hgb Pending
Hct Pending
Plt Count Pending
Sodium Pending
Potassium Pending
Chloride Pending
Carbon Dioxide Pending
BUN Pending
Creatinine Pending
Glucose Pending
Calcium Pending
Vital Signs:
Vital Signs
Temp Pulse Resp BP Pulse Ox
97.8 F 55 16 115/67 97
03/11/24 23:14 03/11/24 23:14 03/11/24 23:14 03/11/24 23:14 03/11/24 23:14
I&O
03/11/24 03/12/24 03/13/24
06:59 06:59 06:59
Intake Total 1250 / 1250
Balance 1250 / 1250
[2024-03-12 08:11] LABS: Hematocrit 30.8 % (39.0-52.0); Hemoglobin 10.4 g/dL (13.0-18.0); Mean Corp Hgb Conc. 33.8 g/dL (33.0-37.0); Mean Corpuscular Hgb 32.7 pg (27.0-31.0); Mean Corpuscular Volume 96.9 fL (80.0-94.0); Mean Platelet Volume 8.7 fL (7.4-10.4); Platelet Count 148 10^3/uL (130-400); Red Blood Cell Count 3.18 10^6/uL (4.70-6.10); Red Cell Dist. Width 15.9 % (11.5-14.5); White Blood Cell Count 1.7 10^3/uL (4.8-10.8)
[2024-03-12 08:37] LABS: Blood Urea Nitrogen 21 mg/dl (9-20); Calcium 8.6 mg/dl (8.4-10.2); Carbon Dioxide 26 mmol/L (22-30); Chloride 101 mmol/L (98-107); Estimated Creatinine Clearance 69 ml/min; Glucose 83 mg/dl (70-99); Magnesium 1.5 mg/dl (1.6-2.3); Potassium 4.2 mmol/L (3.5-5.1); Sodium 131 mmol/L (135-145); eGFR > 60.00
[2024-03-12] MEDS: SODIUM CHLORIDE 1 GRAM PO ×2 (09:40→20:41)
[2024-03-12] MEDS: LINZESS 72 MCG PO (09:40)
[2024-03-12] MEDS: TAMIFLU 75 MG PO ×2 (09:40→20:41)
[2024-03-12] MEDS: PLAVIX 75 MG PO (09:41)
[2024-03-12] MEDS: MUCINEX 600 MG PO ×2 (09:41→20:41)
[2024-03-12] MEDS: PROSCAR 5 MG PO (09:41)
[2024-03-12] MEDS: MIRALAX 17 GRAMS PO ×2 (09:41→20:41)
[2024-03-12] MEDS: LOW STRENGTH ASPIRIN 81 MG PO (09:41)
[2024-03-12] MEDS: LIDOCAINE 4% PATCH 2 PATCH TOPICAL (09:41)
[2024-03-12] MEDS: CYMBALTA DELAYED RELEASE 20 MG PO (09:41)
[2024-03-12] MEDS: MAGNESIUM SULFATE 50 IV (12:37)
[2024-03-12] MEDS: MILK OF MAGNESIA 30 ML PO (12:45)
[2024-03-12] MEDS: SENOKOT-S 2 TABLET PO ×2 (12:45→20:44)
[2024-03-12 15:14] VITALS: BP 126/64
--- NOTE | 2024-03-12 15:22 | CM ---
Patient is from [facility], where he is a senior living care patient. Patient sister indicated that he is normally a good historian and they text frequently but patient does have a speach impediment. Per sister she thought he sounded a little drunk or loopy
yesterday. CM will send updated clinicals to [facility] and await physician update regarding plan for return to SNF. CM will continue to follow for discharge planning needs.
Plan; return to SNF; [facility] ltc patient
[2024-03-12] MEDS: ZITHROMAX 500 MG PO (17:07)
[2024-03-12] MEDS: LIPITOR 40 MG PO (17:08)
[2024-03-12] MEDS: LOVENOX 40 MG SC (17:08)
[2024-03-12] MEDS: STERILE WATER FOR INJECTION 10 ML IV (22:30)
[2024-03-12] MEDS: FLOMAX 0.4 MG PO (22:31)
[2024-03-12] MEDS: ROCEPHIN 1000 MG IV (22:31)
[2024-03-12] MEDS: FLUSH (NSS) 2 FLUSH IV (22:32)
[2024-03-12 22:47] VITALS: BP 117/65
[2024-03-12 23:00] VITALS: BP 117/65
[2024-03-13 06:00] VITALS: BMI 20.2
[2024-03-13] MEDS: LINZESS 72 MCG PO (06:09)
[2024-03-13 07:02] LABS: Blood Urea Nitrogen 19 mg/dl (9-20); Calcium 8.4 mg/dl (8.4-10.2); Carbon Dioxide 25 mmol/L (22-30); Chloride 100 mmol/L (98-107); Estimated Creatinine Clearance 70 ml/min; Glucose 85 mg/dl (70-99); Magnesium 1.7 mg/dl (1.6-2.3); Potassium 4.2 mmol/L (3.5-5.1); Sodium 128 mmol/L (135-145); eGFR > 60.00
[2024-03-13 07:21] LABS: Hematocrit 31.1 % (39.0-52.0); Hemoglobin 10.9 g/dL (13.0-18.0); Mean Corpuscular Volume 94.2 fL (80.0-94.0); Mean Platelet Volume 8.9 fL (7.4-10.4); Platelet Count 161 10^3/uL (130-400); Red Cell Dist. Width 15.4 % (11.5-14.5); White Blood Cell Count 2.1 10^3/uL (4.8-10.8)
[2024-03-13 07:30] VITALS: BP 136/77
--- NOTE | 2024-03-13 07:35 | W.PN.HOSP.TC ---
Today's Communication/Plan
-
see bold
Assessment / Plan
Assessment / Plan
83-year-old male past medical history of CAD, CVA with residual left hemiparesis, chronic hyponatremia and depression who presents with cough. Patient is a limited historian due to significant intellectual disability. Patient had blood work this
morning at the [facility] that revealed very low white blood cell count new sent to the emergency department for evaluation. In the emergency department he is noted to have significant cough and was found to have fever. There were some reports
that patient been complaining of lower abdominal pain.
Sepsis secondary to Pneumonia in setting of Influenza Type A
-Continue Tamiflu D3, Ceftriaxone D3 and Azithromycin D3
-Continue Mucinex, bronchodilators, supportive care
Leukopenia
-Due to sepsis, monitor
Severe Constipation
-S/p milk and molasses enema
-Increased Miralax BID, added senna S twice daily -will need to be continued upon discharge
-Give magnesium citrate 300 cc x 1
-Continue Linzess
Chronic hyponatremia
-Continue sodium tabs, fluid restrict, trend sodium
Congenital left-sided weakness since
Congenital hearing loss
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
-Discussed with sister, who states patient has never had a stroke
-Patient was able to ambulate until he broke his left femur
-Resides at [facility]
History of left femur fracture
Hypomagnesemia
-Repleted
Chronic anemia
-Monitor hemoglobin
Coronary Artery Disease (possible stent)
-Continue aspirin, Plavix, and statin
Hyperlipidemia
-Continue atorvastatin
Depression
-Continue Cymbalta
BPH
-Continue finasteride and tamsulosin
-Monitor bladder scan
Healing stage II sacral decubitus ulcer, present upon admission
-Wound care, turning
DVT proph: SQ Lovenox
Code Status: DNR per [place] paperwork/POLST
Updated sister on phone 03/13
Total time spent to see the patient on the floor, examine the patient, review data and lab results, discuss treatment plan with patient, nursing staff around 50 minutes.
Physical Exam
General: No acute distress
HEENT: Normocephalic, Atraumatic, EOMI, MMM
Respiratory: Scattered rhonchi
Cardiac: Normal S1/S2, Regular Rate and Rhythm
GI: Soft, Nontender, Nondistended, Normal Bowel Sounds
Extremities: No Clubbing, Cyanosis, or Edema
Left leg shortened
Neuro:
Chronic dysarthria
Chronic left-sided weakness
Psych: Calm, Cooperative
Anticipated Discharge: 24 - 48 hours
Subjective/Interval History
-
Date of Service: March 12, 2024
Nursing reports no BM, poor appetite. Fever resolved.
Objective Data
-
Labs:
Laboratory Results
03/12/24
07:47
WBC 1.7 L*
Hgb 10.4 L
Hct 30.8 L
Plt Count 148
Sodium 131 L
Potassium 4.2
Chloride 101
Carbon Dioxide 26
BUN 21 H
Creatinine 0.7
Glucose 83
Calcium 8.6
Vital Signs:
Vital Signs
Temp Pulse Resp BP Pulse Ox
97.3 F 56 20 132/76 95
03/12/24 08:24 03/12/24 07:30 03/12/24 07:30 03/12/24 07:30 03/12/24 07:30
I&O
03/11/24 03/12/24 03/13/24
06:59 06:59 06:59
Intake Total 1250 / 1250
Balance 1250 / 1250
[2024-03-13] MEDS: ZITHROMAX 500 MG PO (08:41)
[2024-03-13] MEDS: MUCINEX 600 MG PO ×2 (08:42→20:40)
[2024-03-13] MEDS: SENOKOT-S 2 TABLET PO ×2 (08:42→20:40)
[2024-03-13] MEDS: TAMIFLU 75 MG PO ×2 (08:42→20:40)
[2024-03-13] MEDS: LOW STRENGTH ASPIRIN 81 MG PO (08:42)
[2024-03-13] MEDS: SODIUM CHLORIDE 1 GRAM PO ×2 (08:42→20:40)
[2024-03-13] MEDS: PROSCAR 5 MG PO (08:43)
[2024-03-13] MEDS: PLAVIX 75 MG PO (08:43)
[2024-03-13] MEDS: MIRALAX 17 GRAMS PO ×2 (08:43→20:41)
[2024-03-13] MEDS: LIDOCAINE 4% PATCH 2 PATCH TOPICAL (08:43)
[2024-03-13] MEDS: CYMBALTA DELAYED RELEASE 20 MG PO (08:43)
[2024-03-13] MEDS: CITROMA 300 ML PO (10:12)
[2024-03-13 11:20] LABS: Osmolality Urine 417 mOsm/kg (300-900)
[2024-03-13 11:31] LABS: Urine Sodium 101 mmol/L (30-90)
[2024-03-13 15:23] VITALS: BP 135/68
[2024-03-13 15:29] LABS: Cortisol, Random 12.8 ug/dl
[2024-03-13 15:50] LABS: Osmolality Serum 273 mOsm/kg (275-300)
[2024-03-13 16:15] LABS: Free T4 1.01 ng/dl (0.78-2.19)
[2024-03-13] MEDS: LOVENOX 40 MG SC (17:07)
[2024-03-13] MEDS: LIPITOR 40 MG PO (17:07)
[2024-03-13] MEDS: ROCEPHIN 1000 MG IV (20:40)
[2024-03-13] MEDS: FLOMAX 0.4 MG PO (20:40)
[2024-03-13] MEDS: STERILE WATER FOR INJECTION 10 ML IV (20:40)
[2024-03-13 23:49] VITALS: BP 124/64
[2024-03-14 05:15] VITALS: BMI 20.1
[2024-03-14] MEDS: LINZESS 72 MCG PO (06:27)
[2024-03-14 08:21] LABS: Hematocrit 32.2 % (39.0-52.0); Hemoglobin 10.9 g/dL (13.0-18.0); Mean Corp Hgb Conc. 33.9 g/dL (33.0-37.0); Mean Corpuscular Hgb 32.2 pg (27.0-31.0); Platelet Count 158 10^3/uL (130-400); Red Blood Cell Count 3.39 10^6/uL (4.70-6.10); Red Cell Dist. Width 15.2 % (11.5-14.5); White Blood Cell Count 2.8 10^3/uL (4.8-10.8)
[2024-03-14 08:45] LABS: Blood Urea Nitrogen 16 mg/dl (9-20); Carbon Dioxide 26 mmol/L (22-30); Chloride 99 mmol/L (98-107); Estimated Creatinine Clearance 69 ml/min; Glucose 88 mg/dl (70-99); Potassium 4.1 mmol/L (3.5-5.1); Sodium 129 mmol/L (135-145); eGFR > 60.00
[2024-03-14] MEDS: ZITHROMAX 500 MG PO (08:59)
[2024-03-14] MEDS: LIDOCAINE 4% PATCH 2 PATCH TOPICAL (09:00)
[2024-03-14] MEDS: MUCINEX 600 MG PO ×2 (09:00→19:32)
[2024-03-14] MEDS: SENOKOT-S 2 TABLET PO ×2 (09:00→19:32)
[2024-03-14] MEDS: CYMBALTA DELAYED RELEASE 20 MG PO (09:00)
[2024-03-14] MEDS: PLAVIX 75 MG PO (09:00)
[2024-03-14] MEDS: SODIUM CHLORIDE 1 GRAM PO ×2 (09:00→19:32)
[2024-03-14] MEDS: TAMIFLU 75 MG PO ×2 (09:00→19:32)
[2024-03-14] MEDS: MIRALAX 17 GRAMS PO ×2 (09:00→19:32)
[2024-03-14] MEDS: LOW STRENGTH ASPIRIN 81 MG PO (09:00)
[2024-03-14] MEDS: PROSCAR 5 MG PO (09:00)
--- NOTE | 2024-03-14 10:17 | W.PN.HOSP.TC ---
Today's Communication/Plan
-
see bold
Assessment / Plan
Assessment / Plan
Gen: NAD, Awake and alert
Eyes: EOMI, PERRLA, no scleral icterus.
Neck: supple.
CV: RRR, +S1/S2, no m/r/g.
Resp: CTAB, no rales, wheezes, or rhonchi.
Abd: +BS, soft, NT, ND
Skin: No rashes.
Neuro: L facial droop
Psych: Normal mood and affect.
CXR: Right basilar pneumonia.
CT A/P: Large volume feces throughout the colon suggesting constipation. Moderate parenchymal air space disease at the posterior lung bases which may be scarring, pneumonia or atelectasis. Parenchymal airspace disease is not significantly changed
dating back to 08/26/2023 suggesting that it is more likely chronic than acute.
Sepsis secondary to Influenza A Pneumonia:
-cont Tamiflu
-currently on Azithro/Rocephin, check Procal
-Continue Mucinex, bronchodilators, supportive care
-leukopenia, due to sepsis, improving
-saturating well on RA
Severe Constipation:
-s/p milk and molasses enema
-Increased Miralax BID, added senna S twice daily
-Give magnesium citrate 300 cc x 1
-Continue Linzess
Chronic hyponatremia: cont salt tabs, FR
Congenital left-sided weakness since , congenital hearing loss, speech impediment as a child: No h/o CVA
h/o femur fracture
Hypomagnesemia, resolved
Chronic anemia: Hb stable
CAD (possible stent): cont ASA/plavix/statin
HLD: cont statin
Depression: cont Cymbalta
BPH: cont finasteride/tamsulosin
Healing stage II sacral decubitus ulcer (POA): Wound care, turning
DNR/Lovenox
Anticipated Discharge: Within 24 hours
Subjective/Interval History
-
Date of Service: March 14, 2024
Pt states he's 'good.'
Objective Data
-
Labs:
Laboratory Results
03/14/24
07:39
WBC 2.8 L
Hgb 10.9 L
Hct 32.2 L
Plt Count 158
Sodium 129 L
Potassium 4.1
Chloride 99
Carbon Dioxide 26
BUN 16
Creatinine 0.7
Glucose 88
Calcium 8.0 L
Vital Signs:
Vital Signs
Temp Pulse Resp BP Pulse Ox
98.1 F 55 18 124/64 96
03/13/24 23:49 03/13/24 23:49 03/13/24 23:49 03/13/24 23:49 03/13/24 23:49
I&O
03/13/24 03/14/24 03/15/24
06:59 06:59 06:59
Intake Total 780 / 780 360 / 360
Output Total 300 / 300
Balance 780 / 780 60 / 60
[2024-03-14 11:31] LABS: Procalcitonin < 0.05 ng/ml (0.0-0.25)
[2024-03-14 13:30] VITALS: BP 135/73
--- NOTE | 2024-03-14 14:07 | CM ---
Addendum entered by Sophie Billy RN 03/14/24 16:02:
IMM reviewd.
Original Note:
Reviewed the chart notes. Patient is a [facility] resident of [facility]. [facility] closed in honor of [facility] Day. CM continues to be available to patient/family and is monitoring medical plan for needs at discharge.
Plan: Discharge back to [facility] when medically stable.
[2024-03-14 14:59] VITALS: BP 127/66
[2024-03-14] MEDS: LOVENOX 40 MG SC (17:11)
[2024-03-14] MEDS: LIPITOR 40 MG PO (17:11)
[2024-03-14] MEDS: FLOMAX 0.4 MG PO (21:29)
[2024-03-14] MEDS: ROCEPHIN 1000 MG IV (21:29)
[2024-03-14] MEDS: STERILE WATER FOR INJECTION 10 ML IV (21:29)
[2024-03-14 23:29] VITALS: BP 144/75
[2024-03-15 05:24] VITALS: BMI 20.1
[2024-03-15] MEDS: LINZESS 72 MCG PO (06:27)
[2024-03-15 06:59] LABS: Hematocrit 31.8 % (39.0-52.0); Hemoglobin 11.2 g/dL (13.0-18.0); Mean Corp Hgb Conc. 35.2 g/dL (33.0-37.0); Mean Corpuscular Hgb 32.7 pg (27.0-31.0); Mean Corpuscular Volume 92.7 fL (80.0-94.0); Mean Platelet Volume 9.2 fL (7.4-10.4); Platelet Count 158 10^3/uL (130-400); Red Blood Cell Count 3.43 10^6/uL (4.70-6.10); Red Cell Dist. Width 14.8 % (11.5-14.5); White Blood Cell Count 2.6 10^3/uL (4.8-10.8)
[2024-03-15 07:24] LABS: Blood Urea Nitrogen 15 mg/dl (9-20); Calcium 7.6 mg/dl (8.4-10.2); Carbon Dioxide 23 mmol/L (22-30); Chloride 101 mmol/L (98-107); Estimated Creatinine Clearance 69 ml/min; Glucose 87 mg/dl (70-99); Sodium 129 mmol/L (135-145); eGFR > 60.00
[2024-03-15 07:55] VITALS: BP 143/69
[2024-03-15] MEDS: ZITHROMAX 500 MG PO (08:44)
[2024-03-15] MEDS: SODIUM CHLORIDE 1 GRAM PO (08:45)
[2024-03-15] MEDS: TAMIFLU 75 MG PO (08:45)
[2024-03-15] MEDS: LOW STRENGTH ASPIRIN 81 MG PO (08:45)
[2024-03-15] MEDS: SENOKOT-S 2 TABLET PO (08:45)
[2024-03-15] MEDS: LIDOCAINE 4% PATCH 2 PATCH TOPICAL (08:45)
[2024-03-15] MEDS: CYMBALTA DELAYED RELEASE 20 MG PO (08:45)
[2024-03-15] MEDS: PROSCAR 5 MG PO (08:45)
[2024-03-15] MEDS: MUCINEX 600 MG PO (08:45)
[2024-03-15] MEDS: PLAVIX 75 MG PO (08:45)
[2024-03-15] MEDS: MIRALAX 17 GRAMS PO (08:46)
--- NOTE | 2024-03-15 09:09 | W.PN.HOSP.TC ---
Today's Communication/Plan
-
d/c
Assessment / Plan
Assessment / Plan
Gen: NAD, Awake and alert
Eyes: EOMI, PERRLA, no scleral icterus.
Neck: supple.
CV: remains RRR, +S1/S2, no m/r/g.
Resp: CTAB anteriorly, no rales, wheezes, or rhonchi.
Abd: remains +BS, soft, NT, ND
Skin: No rashes.
Neuro: L facial droop
Psych: Normal mood and affect.
CXR: Right basilar pneumonia.
CT A/P: Large volume feces throughout the colon suggesting constipation. Moderate parenchymal air space disease at the posterior lung bases which may be scarring, pneumonia or atelectasis. Parenchymal airspace disease is not significantly changed
dating back to 08/26/2023 suggesting that it is more likely chronic than acute.
Sepsis secondary to Influenza A Pneumonia:
-cont Tamiflu
-currently on Azithro/Rocephin, Procal NEG, bacterial PNA has been ruled out, stop abx
-Continue Mucinex, bronchodilators, supportive care
-leukopenia, due to sepsis, improving
-saturating well on RA
Severe Constipation:
-s/p milk and molasses enema
-Increased Miralax BID, added senna S twice daily
-Give magnesium citrate 300 cc x 1
-Continue Linzess
Chronic hyponatremia: cont salt tabs, FR
Congenital left-sided weakness since , congenital hearing loss, speech impediment as a child: No h/o CVA
h/o femur fracture
Hypomagnesemia, resolved
Chronic anemia: Hb stable
CAD (possible stent): cont ASA/plavix/statin
HLD: cont statin
Depression: cont Cymbalta
BPH: cont finasteride/tamsulosin
Healing stage II sacral decubitus ulcer (POA): Wound care, turning
DNR/Lovenox
Medically cleared for discharge. Case management aware.
Total time spent on d/c = 31 min. This included today's physical exam, progress note, review of laboratory and diagnostic data, preparation of discharge documents and prescriptions, and discussions about the pt's hospital course and discharge plan
with the patient and other medical office assistant involved in the patient's care.
Anticipated Discharge: Today
Subjective/Interval History
-
Date of Service: March 15, 2024
No new complaints.
Objective Data
-
Labs:
Laboratory Results
03/15/24
06:01
WBC 2.6 L
Hgb 11.2 L
Hct 31.8 L
Plt Count 158
Sodium 129 L
Potassium 4.0
Chloride 101
Carbon Dioxide 23
BUN 15
Creatinine 0.7
Glucose 87
Calcium 7.6 L
Vital Signs:
Vital Signs
Temp Pulse Resp BP Pulse Ox
97.5 F 54 17 143/69 93
03/15/24 07:55 03/15/24 07:55 03/15/24 07:55 03/15/24 07:55 03/15/24 07:55
I&O
03/14/24 03/15/24 03/16/24
06:59 06:59 06:59
Intake Total 360 / 360 480 / 480
Output Total 300 / 300 200 / 200
Balance 60 / 60 280 / 280
--- NOTE | 2024-03-15 09:56 | W.PN.UPDATE ---
Update Note
Progress Note Update
Case discussed with LUC Billy over [facility], 'Facility wants me to attempt an auth for return. [Discharge] could be a day or two.'
--- NOTE | 2024-03-15 10:29 | CM ---
Spoke with Evan from [facility], they will take the patient back with a pending insurance authorization today.
Await PT/OT evals to initiate authorization.
--- NOTE | 2024-03-15 10:34 | CM ---
Addendum entered by Sophie Billy RN 03/15/24 10:38:
CM spoke with the patient's sister Nuvia via telephone and updated on discharge plan back to [facility].
Original Note:
Reviewed the chart notes. CM spoke with [employer] [facility]. Patient at baseline is full care - no auth needed.
Plan: Discharge back to [facility]
Call report to: [phone]
Fax report to: [phone]
Medical necessity and transport forms on chart.
[2024-03-15 12:22] VITALS: BP 124/63
--- NOTE | 2024-03-15 14:22 | W.DCSUMMARY ---
Discharge Summary
Discharge Data
Date of Admission: 03/11/24
Date of Discharge: 03/15/24
-
Pending Results: No
Hospital Course
Primary diagnoses:
Sepsis secondary to Influenza A Pneumonia
Leukopenia due to sepsis
Severe constipation
Secondary diagnoses:
Chronic hyponatremia
Congenital left-sided weakness since , congenital hearing loss, speech impediment as a child
h/o femur fracture
Hypomagnesemia
Chronic anemia
Coronary artery disease (possible stent)
Hyperlipidemia
Depression
Benign prostatic hypertrophy
Healing stage II sacral decubitus ulcer
Consultants:
None
Imaging:
CXR: Right basilar pneumonia.
CT A/P: Large volume feces throughout the colon suggesting constipation. Moderate parenchymal air space disease at the posterior lung bases which may be scarring, pneumonia or atelectasis. Parenchymal airspace disease is not significantly changed
dating back to 08/26/2023 suggesting that it is more likely chronic than acute.
83-year-old male who presented with a chief complaint of cough is on H&P done on admission. Hospital course by problem list:
Sepsis secondary to Influenza A Pneumonia: Patient was treated with Tamiflu. He was initially on azithromycin and Rocephin. Procalcitonin was negative and bacterial pneumonia was ruled out. Antibiotics were stopped. He received Mucinex. The
patient had a leukopenia due to sepsis which improved. He was discharged in medically stable condition to complete 5 days of Tamiflu.
Severe Constipation: The patient received a milk and molasses enema and a dose of magnesium citrate. Bowel regimen was modified to Miralax/Senna-S BID.
Discharge Plan
-
Patient Disposition: Snf/SNF
Discharge Diagnosis/Procedures: Sepsis secondary to Influenza A Pneumonia
Condition: Good
Diet: Low Cholesterol
Activity: With assistance
Driving Restrictions: No driving
Blood Work: BMP and CBC in 1 week, script from PCP
Others Tests: CXR in 4 weeks
Referrals:
UNKNOWN - PT DOES,NOT KNOW [Family Provider] - in less than 1 week
Prescriptions:
New
oseltamivir 75 mg Capsule
75 mg PO BID Qty: 0 0RF
polyethylene glycol 3350 17 gram Powder In Packet
17 g PO BID Qty: 0 0RF
sennosides-docusate sodium 8.6-50 mg Tablet
2 tab PO BID Qty: 0 0RF
Continued
atorvastatin [Lipitor] 40 mg Tablet
40 mg PO QPM
acetaminophen [Tylenol] 325 mg Tablet
650 mg PO Q6HPRN PRN (Reason: mild pain)
ipratropium-albuterol 0.5 mg-3 mg(2.5 mg base)/3 mL Solution For Nebulization
3 ml INHALATION R TIDPRN PRN (Reason: sob)
lidocaine 4 % Adhesive Patch,Medicated
2 patch TOPICAL DAILY
Rx Instructions:
left side anterior rib cage and left side mid posterior rib cage
ketotifen fumarate 0.025 % (0.035 %) Drops
1 drp BOTH EYES DAILY
sodium chloride 1 gram Tablet
1,000 mg PO BID
clopidogrel [Plavix] 75 mg Tablet
75 mg PO DAILY
omeprazole 10 mg Capsule,Delayed Release(Dr/Ec)
10 mg PO DAILY
magnesium hydroxide [Milk of Magnesia] 400 mg/5 mL Suspension
2,400 mg PO HSPRN PRN (Reason: constipation)
tamsulosin [Flomax] 0.4 mg Capsule
0.4 mg PO HS
bisacodyl [Dulcolax (bisacodyl)] 10 mg Suppository
10 mg FL [id number] PRN (Reason: if no bm aftr mom)
oxybutynin chloride 5 mg Tablet Extended Release 24hr
5 mg PO DAILY
aspirin 81 mg Tablet,Chewable
81 mg PO DAILY
pyridoxine (vitamin B6) 100 mg Tablet
100 mg PO DAILY
albuterol sulfate 90 mcg/actuation Hfa Aerosol Inhaler
2 puff INHALATION R Q6HPRN PRN (Reason: sob)
ipratropium bromide 21 mcg (0.03 %) [place],Non-Aerosol
2 spray INTRANASAL BID
finasteride 5 mg Tablet
5 mg PO DAILY
Saline Nasal 0.65 % Aerosol,[place]ly
1 spray INTRANASAL QIDPRN PRN (Reason: dryness)
duloxetine [Cymbalta] 20 mg Capsule,Delayed Release(Dr/Ec)
20 mg PO DAILY
lactulose 10 gram/15 mL Solution
10 g PO DAILYPRN PRN (Reason: cosntipation)
calcium carbonate-vitamin D3 [Calcium 500 + D] 500 mg-10 mcg (400 unit) Tablet
1 tab PO DAILY
Refresh Optive 0.5-0.9 % Drops
1 drp BOTH EYES BID
Linzess 72 mcg Capsule
72 mcg PO DAILY
Discontinued
polyethylene glycol 3350 [Miralax] 17 gram Powder In Packet
17 g PO DAILY
tramadol 50 mg Tablet
50 mg PO BID
Discharge Orders:
Discharge Patient (As Directed); Ordered 03/15/24
Ordered By: Puma Escobedo
Discharge Date and Time
Discharge Date/Time: 03/15/24 13:29
Print Language: SYRIAC
== END 2024-03-15 13:29 | DRG 871 ==
LOC: 2 NORTH 17:35
PROVIDERS: Family Medicine; Physician Assistant Medical; Student in an Organized Health Care Education/Training Program; ADMITTING PHYSICIAN Student in an Organized Health Care Education/Training Program; ATTENDING PHYSICIAN Internal Medicine; EMERGENCY PHYSICIAN Student in an Organized Health Care Education/Training Program
DX: A41.89 Other specified sepsis (principal); J11.00 Influenza due to unidentified influenza virus with unspecified type of pneumonia; I69.354 Hemiplegia and hemiparesis following cerebral infarction affecting left non-dominant side; E87.1 Hypo-osmolality and hyponatremia; I25.10 Atherosclerotic heart disease of native coronary artery without angina pectoris; F79 Unspecified intellectual disabilities; K59.09 Other constipation; L89.152 Pressure ulcer of sacral region, stage 2; Z66 Do not resuscitate; F32.A Depression, unspecified; E83.42 Hypomagnesemia; D64.9 Anemia, unspecified; N40.0 Benign prostatic hyperplasia without lower urinary tract symptoms; Z79.02 Long term (current) use of antithrombotics/antiplatelets; Z79.82 Long term (current) use of aspirin; Z11.52 Encounter for screening for COVID-19
CPT/HCPCS: 71046; 74177; 80048; 80053; 81003; 82533; 82570; 83735; 83930; 83935; 84145; 84300; 84439; 84443; 85025; 85027; 87070; 87147; 87449; 87502; 87811; 87899; 93005; 96365; 96375; 99285; Q9967

== ENCOUNTER → 2024-03-22 12:34 | Outpatient (REF) | payer MEDICARE, SELFPAY ==
[2024-03-22 13:26] LABS: % Basophils 0.5 % (0-2); % Eosinophils 2.2 % (0-6); % Immature Granulocytes 0.2 % (0-0.5); % Lymphocytes 30.8 % (20.5-51.1); % Monocytes 8.4 % (1.7-9.3); % Neutrophils 57.9 % (42.2-75.2); Absolute Eosinophils 0.1 10^3/uL (0-0.7); Absolute Lymphocytes 1.2 10^3/uL (1.2-3.4); Absolute Monocytes 0.3 10^3/uL (0.1-0.6); Absolute Neutrophils 2.3 10^3/uL (1.4-6.5); Hematocrit 31.9 % (39.0-52.0); Hemoglobin 10.7 g/dL (13.0-18.0); Mean Corp Hgb Conc. 33.5 g/dL (33.0-37.0); Mean Corpuscular Hgb 32.4 pg (27.0-31.0); Mean Corpuscular Volume 96.7 fL (80.0-94.0); Mean Platelet Volume 9.3 fL (7.4-10.4); Nucleated Red Blood Cells % 0 % (-); Platelet Count 286 10^3/uL (130-400)
[2024-03-22 13:29] LABS: Blood Urea Nitrogen 13 mg/dl (9-20); Calcium 7.8 mg/dl (8.4-10.2); Carbon Dioxide 23 mmol/L (22-30); Chloride 104 mmol/L (98-107); Glucose 82 mg/dl (70-99); Potassium 5.1 mmol/L (3.5-5.1); Sodium 132 mmol/L (135-145); eGFR > 60.00
== END ==
LOC: OLABN 12:34
PROVIDERS: ATTENDING PHYSICIAN Student in an Organized Health Care Education/Training Program
DX: J18.9 Pneumonia, unspecified organism (principal)
CPT/HCPCS: 36415; 80048; 85025

== ENCOUNTER → 2024-04-19 08:30 | Outpatient (REF) | payer MEDICARE, SELFPAY ==
[2024-04-19 09:40] LABS: % Basophils 0.3 % (0-2); % Eosinophils 1.5 % (0-6); % Immature Granulocytes 0.3 % (0-0.5); % Lymphocytes 10.7 % (20.5-51.1); % Neutrophils 81.2 % (42.2-75.2); Absolute Eosinophils 0.1 10^3/uL (0-0.7); Absolute Lymphocytes 0.8 10^3/uL (1.2-3.4); Absolute Monocytes 0.4 10^3/uL (0.1-0.6); Absolute Neutrophils 5.9 10^3/uL (1.4-6.5); Hematocrit 31.1 % (39.0-52.0); Hemoglobin 10.3 g/dL (13.0-18.0); Mean Corp Hgb Conc. 33.1 g/dL (33.0-37.0); Mean Corpuscular Hgb 33.1 pg (27.0-31.0); Mean Platelet Volume 9.4 fL (7.4-10.4); Nucleated Red Blood Cells % 0 % (-); Platelet Count 206 10^3/uL (130-400); Red Blood Cell Count 3.11 10^6/uL (4.70-6.10); Red Cell Dist. Width 17.2 % (11.5-14.5); White Blood Cell Count 7.2 10^3/uL (4.8-10.8)
[2024-04-19 09:47] LABS: Blood Urea Nitrogen 22 mg/dl (9-20); Calcium 8.7 mg/dl (8.4-10.2); Carbon Dioxide 22 mmol/L (22-30); Chloride 107 mmol/L (98-107); Glucose 81 mg/dl (70-99); Potassium 4.6 mmol/L (3.5-5.1); Sodium 134 mmol/L (135-145); eGFR > 60.00
[2024-04-19 09:54] LABS: NT-proBNP 1910 pg/ml
== END ==
LOC: OLABN 08:30
PROVIDERS: ATTENDING PHYSICIAN Student in an Organized Health Care Education/Training Program
DX: I10 Essential (primary) hypertension (principal)
CPT/HCPCS: 36415; 80048; 83880; 85025

== ENCOUNTER → 2024-04-22 10:22 | Outpatient (REF) | payer MEDICARE, SELFPAY ==
[2024-04-22 11:49] LABS: Blood Urea Nitrogen 36 mg/dl (9-20); Calcium 9.4 mg/dl (8.4-10.2); Carbon Dioxide 23 mmol/L (22-30); Chloride 105 mmol/L (98-107); Glucose 113 mg/dl (70-99); Potassium 4.8 mmol/L (3.5-5.1); Sodium 132 mmol/L (135-145); eGFR > 60.00
[2024-04-22 12:10] LABS: NT-proBNP 8870 pg/ml
== END ==
LOC: OLABN 10:22
PROVIDERS: ATTENDING PHYSICIAN Student in an Organized Health Care Education/Training Program
DX: I25.9 Chronic ischemic heart disease, unspecified (principal); I25.10 Atherosclerotic heart disease of native coronary artery without angina pectoris
CPT/HCPCS: 36415; 80048; 83880

== ENCOUNTER 2024-04-22 13:35 | Inpatient (IN) | payer OTHER, SELFPAY ==
[2024-04-22] VITALS (10 sets, daily range): BP systolic 113–142; BP diastolic 54–107; BMI 22.2
--- NOTE | 2024-04-22 10:50 | ED.GENMED ---
History of Present Illness
General
Chief Complaint: Breathing Problem
Source: patient and ambulance crew
Exam Limitations: dementia
Time Seen by Provider: 04/22/24 10:49
History of Present Illness
History of Present Illness:
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
revealed CHF, he also had a fever and his last Tylenol was last night, he received a DuoNeb treatment at 7 AM this morning.
Pt denies CP, SOB, abdominal pain.
Patient admitted 03/11 to 03/15/2024 for sepsis secondary to flu A pneumonia and severe constipation
Past History
Past History
ED Past Medical History: CAD, Hypercholesterolemia, Psychiatric (depression) and Other (congenital hearing loss, speech impediments, chronic L side weakness)
ED Past Surgical History: Cardiac (stent)
Social History
Tobacco: Non-smoker
Alcohol: None
Living: prison
Review of Systems
Review of Systems
Allergies reviewed?: Yes
All Other Systems: ROS reviewed and negative except as documented in HPI and ROS
Constitutional: Reports fever
Respiratory: Denies cough
Cardiac: Denies chest pain
ABD/GI: Denies abdominal pain, nausea, vomiting or diarrhea
Musculoskeletal: Denies edema
Skin: Reports no symptoms
Neurological: Denies headache
Phy Exam
Physical Exam
Physical Exam:
GENERAL: No acute distress. A&O
CONSTITUTIONAL: Afebrile.
EYES: clear, conjunctivae normal
ENMT: moist mucus membranes, Pharynx nl
RESPIRATORY: Regular respirations, nonlabored, lungs with rhonchi. Pulse ox 95% RA
CARDIOVASCULAR: Regular rate and rhythm, no murmurs, no rubs.
GI: Soft, nontender, normal BS
MUSCULOSKELETAL: No edema. Well perfused. Chronic L sided weakness.
SKIN: Warm, dry, pink
PSYCH: Normal mood and affect. Well kept, interactive and appropriate
NEUROLOGIC: Chronic dysarthria. Awake, alert and oriented. No focal neurological deficits
Scores
Heart Failure Risk
Heart Failure Risk Score: Yes
History of Stroke or TIA: No
History of intubation for respiratory distress: No
Heart rate on ED arrival >/= 110: No
SaO2 <90% on arrival on room air: No
HR >/=110 during 3min walk test (or too ill to perform test): Yes
ECG has acute ischemic changes: No
Urea >/=12mmol/L (BUN 33.6mg/dL): Yes
Serum CO2>/=35mmol/L: No
Troponin I or T elevated to AL Level (0.4mg/dL): Yes
NT-proBNP >/=5,000ng/L (5,000pg/ml): Yes
HF Risk Score: 6
Admission Status: VERY HIGH RISK 55.3% Consider admission to hospital
Course
Orders/Labs/Results
Orders:
Orders
04/22/24 10:50
Electrocardiogram (*1) Urgent
Reason for Study: Shortness of Breath
EKG- Treatment ONCE
04/22/24 11:03
CR Chest Portable - 1 View Urgent
Comment:
Reason For Exam: fever, SOB
Reason Study Needs to be Portable: Patient Unstable
04/22/24 11:04
Complete Blood Count/With Diff Urgent
Comprehensive Metabolic Panel Urgent
Troponin I Urgent
04/22/24 11:06
COVID-19 Antigen Urgent
Source: Nasal Swab
Influenza A+B Rapid Molecular Urgent
ARMIDA Source: Nasal Swab
Specimen Description:
04/22/24 11:11
Acetaminophen [Tylenol] 650 mg PO NOW STA
04/22/24 11:35
Speech Screening from Vee Routine
04/22/24 12:47
Furosemide [Lasix] 40 mg IV NOW STA
04/22/24 13:16
Admit/Transfer Patient As Directed
Co-Sign Provider:
Level of Care: Inpatient admission
Assign to:: Telemetry
Physician / Group: tashi nieves
Diagnosis: new onset CHF
Reason for Telemetry: Acute Heart Failure
Date to Stop Telemetry: 04/25/24
Time to Stop Telemetry: 11:00
Reason for Hospitalization: new onset CHF
Expected length of stay greater than two midnights?: Yes
ELOS- Estimated Length of Stay in days: 3
I certify the patient meets the requirements for IP care: Yes
PRN Pain Medication Management As Directed
May give lesser potent ordered pain med per pt: Yes
preference::
Protocol:: Medication orders for pain may be administered in a
manner that supports deferring to patient preference
when the pt is:
- Requesting an ordered lesser potent pain medication.
Least to most potent pain medications are defined
as: acetaminophen < NSAID < tramadol < opioids
(morphine, oxycodone, hydromorphone).
- Requesting a lesser dose of the same medication IF
ORDERED.
- Requesting a less intrusive route of administration
if both routes are prescribed by the provider (PO <
IV).
04/22/24 13:19
Code Status As Directed
Resuscitation Status: Do not resuscitate
Reached after discussion with pt or family/Healthcare POA: Yes
04/22/24 13:20
DNR Bracelet Application ONCE
04/22/24 13:23
LevoFLOXacin 750 MG/150 ML [Levaquin] 750 mg in 150 ml IV NOW
04/22/24 13:34
CefTRIAXone [Rocephin] 1,000 mg IV NOW STA
Doxycycline [Vibramycin] 100 mg PO NOW STA
04/22/24 13:56
Procalcitonin Stat
PCT Algorithmm Indication: Respiratory
04/25/24 11:00
DC Protocol for Telemetry ONCE
Abnormal Lab Results
04/22/24
11:04
WBC 4.7 L 10^3/uL
(4.8-10.8)
RBC 2.91 L 10^6/uL
(4.70-6.10)
Hgb 9.7 L g/dL
(13.0-18.0)
Hct 28.9 L %
(39.0-52.0)
MCV 99.3 H fL
(80.0-94.0)
MCH 33.3 H pg
(27.0-31.0)
RDW 17.3 H %
(11.5-14.5)
Absolute Lymphs (auto) 0.3 L 10^3/uL
(1.2-3.4)
Neutrophils % 85.6 H %
(42.2-75.2)
Lymphocytes % 6.9 L %
(20.5-51.1)
Sodium 132 L mmol/L
(135-145)
BUN 37 H mg/dl
(9-20)
Glucose 147 H mg/dl
(70-99)
Troponin I 0.104 H* ng/ml
Albumin 2.5 L g/dl
(3.5-5.0)
04/22/24 11:04
04/22/24 11:04
Vital Signs
Initial and Last Documented VS:
Initial Vital Signs
Temp Pulse Resp Pulse Ox
100.4 F H 83 28 95
04/22/24 10:40 04/22/24 10:40 04/22/24 10:40 04/22/24 10:40
Last Documented Vital Signs
Temp Pulse Resp BP Pulse Ox
99.3 F 61 27 133/71 93
04/22/24 13:26 04/22/24 15:00 04/22/24 15:00 04/22/24 13:15 04/22/24 13:30
MDM/Problems Addressed
Differential Diagnosis Includes:
PNA, CHF,
MDM/Problems Addressed:
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
revealed CHF, he also had a fever and his last Tylenol was last night, he received a DuoNeb treatment at 7 AM this morning.
Pt denies CP, SOB, abdominal pain.
EKG: Sinus with PACs
Patient admitted 03/11 to 03/15/2024 for sepsis secondary to flu A pneumonia and severe constipation
11:45 a.m.
CBC: No new abnormalities
CMP: No new abnormalities
Troponin 0.104
Flu neg
Covid neg
12:45 p.m.
Chest x-ray radiology report read: IMPRESSION:
Diffusely increased interstitial opacities bilaterally and mild bibasilar patchy airspace disease, which is improved compared to the prior chest radiograph. No definitive evidence for pneumonia. No large pleural effusions.
Mild cardiomegaly.
Now with elevated Troponin, BNP 8820 on yesterday's labs that were done here so they would not repeat it today. Stable. CXR increased interstitial markings.
Plan: Admit: CHF
Hospitalist notified of admission
*EKG
EKG Intrepretation Date: 04/22/24
Interpretation: abnormal
Heart Rate: 71
Rate: normal
Rhythm: sinus and PAC's
[place]: normal axis
Interval: normal interval
QRS Pattern: normal QRS
Ischemia: no ischemia
*Critical Care Note
Total Time (30-74mins, 75-104mins- exclusive of procedures): Not Applicable
ED Attending Note
-
Portions of this chart may have been created with voice recognition software.� Occasional wrong word or��sound alike� substitutions may have occurred due to the inherent limitations of voice recognition software.
Discharge Plan
Departure
Patient Disposition: Admit
Date of Disposition: 04/22/24
Time of Disposition: 12:47
Admit to: Telemetry
Presentation/result/management discussed w/ accepting MD/DO: Hospitalist
Condition: Fair
Covid-19: Negative COVID-19
Discharge Problem:
CHF (congestive heart failure), Elevated troponin
Interventions
Interventions:
*Risk Screen - Suicide Last Done: 04/22/24 10:40
*General Assessment Last Done: 04/22/24 10:40
*Neglect/Abuse Screening Last Done: 04/22/24 10:40
ED- Fall Risk Assessment Last Done: 04/22/24 11:28
*ED COVID-19 Vaccine History Last Done: 04/22/24 11:08
ED- Cardiac Assessment Last Done: 04/22/24 11:28
ED- Pulmonary Assessment Last Done: 04/22/24 11:28
[2024-04-22 11:13] LABS: % Basophils 0.2 % (0-2); % Immature Granulocytes 0.4 % (0-0.5); % Lymphocytes 6.9 % (20.5-51.1); % Monocytes 6.9 % (1.7-9.3); % Neutrophils 85.6 % (42.2-75.2); Absolute Lymphocytes 0.3 10^3/uL (1.2-3.4); Absolute Monocytes 0.3 10^3/uL (0.1-0.6); Hematocrit 28.9 % (39.0-52.0); Hemoglobin 9.7 g/dL (13.0-18.0); Mean Corp Hgb Conc. 33.6 g/dL (33.0-37.0); Mean Corpuscular Hgb 33.3 pg (27.0-31.0); Mean Corpuscular Volume 99.3 fL (80.0-94.0); Mean Platelet Volume 9.5 fL (7.4-10.4); Nucleated Red Blood Cells % 0 % (-); Platelet Count 141 10^3/uL (130-400); Red Blood Cell Count 2.91 10^6/uL (4.70-6.10); Red Cell Dist. Width 17.3 % (11.5-14.5); White Blood Cell Count 4.7 10^3/uL (4.8-10.8)
[2024-04-22] MEDS: TYLENOL 650 MG PO (11:19)
[2024-04-22 11:25] LABS: ALT (SGPT) 35 U/L (0-50); AST (SGOT) 32 U/L (17-59); Albumin 2.5 g/dl (3.5-5.0); Alkaline Phosphatase 102 U/L (38-126); Blood Urea Nitrogen 37 mg/dl (9-20); Calcium 9.3 mg/dl (8.4-10.2); Carbon Dioxide 22 mmol/L (22-30); Chloride 105 mmol/L (98-107); Estimated Creatinine Clearance 52 ml/min; Glucose 147 mg/dl (70-99); Potassium 4.8 mmol/L (3.5-5.1); Sodium 132 mmol/L (135-145); Total Bilirubin 0.4 mg/dl (0.2-1.3); Total Protein 6.7 g/dl (6.3-8.2); eGFR > 60.00
[2024-04-22 11:38] LABS: Troponin I 0.104 ng/ml
[2024-04-22 11:54] LABS: COVID-19 Antigen Negative (Negative)
--- NOTE | 2024-04-22 12:49 | HPS.HSE ---
Family Physician
-
Family Physician: Stew Pisano, DO
Chief Complaint
-
sob
History of Present Illness
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
revealed CHF, he also had a fever and his last Tylenol was last night, he received a DuoNeb treatment at 7 AM this morning.Pt denies CP, SOB, abdominal pain. Patient denies headache, nausea or syncope. Patient denied abdominal pain, nausea,
vomiting or diarrhea. Patient denied dysuria materia
patient gained five lbs since the last discharge. received Lasix in ER. admitting for further management.
Medical History
Past Medical History
Past Medical History: Reports Other
Additional Past Medical History:
Gout
Hypertension
Lyme disease
COPD
Hyperlipidemia
Hyponatremia
GERD
Coronary disease
BPH
Depression
IBS
Past Surgical History: Reports Other
Additional Past Surgical History:
Cardiac stent
Right eyelid cataract surgery
Social History
Tobacco: Non-smoker
Alcohol: None
Drug: None
Personal: Single
Living: Care Home
Family History
Family History: Not pertinent
Allergies / Home Medications
Allergies reflects when Allergies were last updated in [employer].
Home Medications with original date entered in [employer]
Allergy/Medication List:
Allergies
Allergy/AdvReac Type Severity Reaction Status Date / Time
Penicillins Allergy Unknown Unknown Verified 04/22/24 11:10
Home Medications
acetaminophen 325 mg tablet (Tylenol) 650 mg PO Q4HPRN PRN mild pain/fever>100.4 03/11/24
albuterol sulfate 90 mcg/actuation aerosol inhaler 2 puff inhalation R Q6HPRN PRN sob 03/11/24
aspirin 81 mg chewable tablet 81 mg PO DAILY 03/11/24
atorvastatin 40 mg tablet (Lipitor) 40 mg PO QPM 03/11/24
bisacodyl 10 mg rectal suppository (Dulcolax (bisacodyl)) 10 mg DC DAILYPRN PRN if no bm aftr mom 03/11/24
calcium 500 mg (as carbonate)-vitamin D3 10 mcg (400 unit) tablet (Calcium 500 + D) 1 tab PO DAILY 03/11/24
carboxymethylcellulose 0.5 %-glycerin 0.9 % eye drops (Refresh Optive) 1 drp BOTH EYES BID 03/11/24
clopidogrel 75 mg tablet (Plavix) 75 mg PO DAILY 03/11/24
duloxetine 20 mg capsule,delayed release (Cymbalta) 20 mg PO DAILY 03/11/24
finasteride 5 mg tablet 5 mg PO DAILY 03/11/24
ipratropium 0.5 mg-albuterol 3 mg (2.5 mg base)/3 mL nebulization soln 3 ml inhalation R TIDPRN PRN sob 03/11/24
ipratropium bromide 21 mcg (0.03 %) nasal spray 2 spray intranasal BID 03/11/24
lactulose 10 gram/15 mL oral solution 10 g PO DAILYPRN PRN cosntipation 03/11/24
lidocaine 4 % topical patch 2 patch topical DAILY 03/11/24
magnesium hydroxide 400 mg/5 mL oral suspension (Milk of Magnesia) 2,400 mg PO HSPRN PRN constipation 03/11/24
omeprazole 10 mg capsule,delayed release 10 mg PO DAILY 03/11/24
pyridoxine (vitamin B6) 100 mg tablet 100 mg PO DAILY 03/11/24
sodium chloride 0.65 % nasal spray aerosol (Saline Nasal) 1 spray intranasal QIDPRN PRN dryness 03/11/24
tamsulosin 0.4 mg capsule (Flomax) 0.4 mg PO HS 03/11/24
polyethylene glycol 3350 17 gram oral powder packet 17 g PO BID #0 ea 03/15/24
sennosides 8.6 mg-docusate sodium 50 mg tablet 2 tab PO BID #0 tabs 03/15/24
carbamide peroxide 6.5 % ear drops (Debrox) 3 drp EACH EAR HS 04/22/24
lubiprostone 8 mcg capsule 8 mcg PO DAILY@0630 04/22/24
sodium chloride 1,000 mg soluble tablet 1,000 mg PO BID 04/22/24
Review of Systems
-
Constitutional: Reports No Symptoms
EENT: Reports No Symptoms
Respiratory: Reports Cough
Cardiac: Reports No Symptoms
Abdomen/GI: Reports No Symptoms
: Reports No Symptoms
Musculoskeletal: Reports No Symptoms
Skin: Reports No Symptoms
Neurological: Reports No Symptoms
Endocrine: Reports No Symptoms
Hematologic/Lymphatic: Reports No Symptoms
Psych: Reports No Symptoms
Physical Exam
Vital Signs
Vital Signs
Temp Pulse Resp BP Pulse Ox
100.4 F H 67 30 117/63 94
04/22/24 10:40 04/22/24 12:15 04/22/24 12:15 04/22/24 12:00 04/22/24 12:15
Physical Exam
General: Well Developed, Well Nourished and No Apparent Distress
HEENT: NormoCephalic, Moist mucous membranes and Atraumatic
Respiratory: Rhonchi
Cardiac: S1/S2 and Regular Rhythm; No Murmur or Rub
GI: Soft, Non Tender, Non Distended and Normal Bowel Sounds; No Organomegaly
Rectal: Deferred by Provider
Musculoskeletal: No Clubbing, No Cyanosis and No Edema
Skin: No Rash
Neuro: AO x 3 and Nonfocal/grossly intact
Psych: Calm
Laboratory Results
-
04/22/24 11:04
04/22/24 11:04
Laboratory Results
Total Bilirubin 0.4 mg/dl (0.2-1.3) 04/22/24 11:04
AST 32 U/L (17-59) 04/22/24 11:04
ALT 35 U/L (0-50) 04/22/24 11:04
Alkaline Phosphatase 102 U/L (38-126) 04/22/24 11:04
Troponin I 0.104 ng/ml H* 04/22/24 11:04
Data Reviewed
-
Diagnostic Radiology: Report Reviewed by me
Lab Data: Labs Reviewed by me
Impression/Plan
-
# Short of breath concern for new onset CHF
-BNP 8820
-IV Lasix continued
-Fluid restriction
-Strict TYLER
-ECHO in 2021 with EF of 60-65%
-cardiology consulted
#fever likely viral/pneumonia
-COVID-negative,, influenza negative influenza negative
-100.4
-chest x ray with diffusely increased interstitial opacities bilateral and mild bibasilar patchy airspace disease, which is improved compared to the prior chest radiograph. no large pleural effusions. mild cardiomegaly
-Tylenol prn for fever
-CTm
-Levaquin added
# Elevated Trope negative NSTEMI
-EKG with sinus rhythm with PACS
-Patient denied chest pain
-Continue to trend troponin
# Leukopenia/anemia of chronic
-WBC 4.7, hemoglobin 9.7
-No active bleeding
-Continue to monitor
# Chronic hyponatremia
-Sodium 132
-Continue to monitor
-sodium chloride continued
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
#h/o femur fracture
#CAD (possible stent): cont ASA/plavix/statin
#HLD: cont statin
#Depression: cont Cymbalta
#GERD
-PPI
#BPH: cont finasteride/tamsulosin
DNR/Lovenox
[2024-04-22] MEDS: LASIX 40 MG IV (13:15)
--- NOTE | 2024-04-22 13:44 | W.PN.UPDATE ---
Update Note
Progress Note Update
I could not get any information from the patient as HX developmental delay
Information gathered by chart review and speaking with the ER staff and COMPUTER TRAINING SPECIALIST
This note serves as an addendum to the H&P by medical physics professor DANIA
Sejal NANCY
HPI
83 M Res [facility] , HX developmental delay, HX CAD with stents on DAPL, HX COPD, HX Congenital left-sided weakness since , congenital hearing loss, speech impediment as a child, chr leucopenia, chronic hyponatremia sent to ER for fever and SoB.
HX PCN allergy but tolerated to CFTX in the past per pharmacist
On exam:
Fever 100.4, POx 94 on RA, RR22 ,
Not toxic looking , pleasant and cooperative
Mildly tachypneic, not orthopneic
Prominent EJD
b/l diffuse ronchii ant and post chest
RRR S1 s2
benign abdomen
No peripheral edema
Data
proBNP was 8820. Denied CP but TPNI 0.104. EKG wiht NSR [facility] PACs. Normal eGFR.
NEG Flu A & B, NEG Covid
CXR:
- Diffusely increased interstitial opacities bilaterally and mild bibasilar patchy airspace disease, which is improved compared to the prior chest radiograph. No definitive evidence for pneumonia. No large pleural effusions.
- Mild cardiomegaly.
06/19/21 TTE
Normal left and right ventricular function
Grade 1 diastolic dysfunction
No significant valvular disease
Compared to report of echo Doppler from 03/06/17, there would not appear to be
any significant change.
ASSESSMENT & PLAN
Acute febrile illness with abn CXR DDX: PNA ( Viral vs Bacterial)
HX chr leucopenia
- check PCT
- BCx sent
- Empiric IV CFTZ and PO Doxy
New interval elevated pro BNP with abnormal CXR : DDX: acute HF type unknown
Prior nl LVEF but Grade 1 diastolic dysfunction per above 06/19/21 TTE
- IV Lasix 40 at ER then cont. IV Lasix 20 mg BID
- daily WT and IOS
- daily BMP and Mg in AM
- ECHO in AM
- CBC card consult
Elevated TPNI suspect NIMI
HX CAD with HX stent
- cont ASA/Plavix/statin
- await ECHO for new WMAL
- trend TPNI
- repeat EKG in AM
HLD:
- cont statin
HX Severe Constipation:
- c/w HOTBED OPERATOR BW regime
Chronic hyponatremia:
- cont salt tabs
- c/w FR 1.2 L daily
Depression:
- cont Cymbalta
BPH:
- cont finasteride/tamsulosin
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
No h/o CVA
h/o femur fracture
Hypomagnesemia HX
Chronic anemia: Hb stable
DVT Px: LMWH
DNR
IP TLM
[2024-04-22] MEDS: VIBRAMYCIN 100 MG PO ×2 (14:10→20:13)
[2024-04-22] MEDS: STERILE WATER FOR INJECTION 10 ML IV (14:10)
[2024-04-22] MEDS: ROCEPHIN 1000 MG IV (14:10)
--- NOTE | 2024-04-22 14:21 | CON.CAR ---
Addendum entered and electronically signed by Nikos German MD 04/22/24 16:45:
I saw and examined the patient.
The DISPLAY SPECIALIST's note was reviewed and I agree with the note.
Comment:
83-year-old man with HFpEF, CAD, hypertension, developmental delay with speech impediment and congenital left sided weakness, who presents from [facility] with SOB, cough and fever. Cardiology is consulted due to acute on chronic HFpEF.
History is limited due to patient's speech impediment but he seems to be complaining of constipation and no cardiovascular complaints. Physical exam with RRR, no murmurs, trace lower extremity edema, rhonchorous upper airway sounds. Labs notable
for troponin 0.104, NT proBNP 8k, creatinine 1.0. CXR with increased interstitial markings. ECG is normal sinus rhythm with premature atrial complexes and no evidence of ischemia. Weight is 68.1 kg from 63.7 kg on 03/15/2024. He received 40 mg IV
Lasix in the ER at 1:15 PM. We will plan to diurese with 40 mg IV Lasix twice daily. He is not on diuretics at home. We will update an echocardiogram this admission. Last echo in 2021 with normal left and right ventricular function and no
significant valvular disease. Trend troponin to peak. He is not complaining of any chest pain and has a nonischemic ECG; suspect nonischemic myocardial injury in the setting of heart failure exacerbation. Continue home aspirin and statin.
Original Note:
Consultation
Consultation Request
Date/Time Consultation Requested: 04/22/24 1:45p
Date/Time Consultation Performed: 04/22/24 2:15p
Requesting Provider: DANIEL Gray
Performing Provider: DANIEL Lambert for Dr. German
Reason for Consultation: SOB/HFpEF
Medical History
-
Chief Complaint: SOB
History of Present Illness:
Mr. Acevedo is an 83 yo male (resident of [facility]) with HFpEF, CAD (PCI mid LAD 2012, diffuse nonobstructive CAD)HTN, HLD, chronic dyspnea, h/o developmental delay with speech impediment and congenital left sided weakness,
who presents from [facility] with SOB, cough and fever. He is admitted to the hospitalist service and we are consulted for SOB/HFpEF. CXR showed diffusely increased interstitial opacities bilaterally and mild bibasilar patchy airspace
disease, proBNP 8870, received IV Lasix in the ER. Admission here last month with sepsis due to Flu A PNA. He admits to a cough.
Outpatient [facility] [facility] is Dr. Adolfo Monzon with [facility].
Past Medical History
Past Medical History: Other (as above)
Social History
Tobacco: Non-Smoker
Alcohol: None
Living: Shelter
Family History
Family History: Reviewed & Not Pertinent
Allergies / Home Medications
Allergy/AdvReac Type Severity Reaction Status Date / Time
Penicillins Allergy Unknown Unknown- Verified 04/22/24 13:34
tolerated
ceftriaxone
in Feb 2024
�Medication �Instructions �Recorded �Confirmed �Type
acetaminophen 325 mg tablet 650 mg PO Q4HPRN PRN mild 03/11/24 04/22/24 History
(Tylenol) pain/fever>100.4
albuterol sulfate 90 mcg/actuation 2 puff inhalation R Q6HPRN PRN sob 03/11/24 04/22/24 History
aerosol inhaler
aspirin 81 mg chewable tablet 81 mg PO DAILY 03/11/24 04/22/24 History
atorvastatin 40 mg tablet (Lipitor) 40 mg PO QPM 03/11/24 04/22/24 History
bisacodyl 10 mg rectal suppository 10 mg WI DAILYPRN PRN if no bm 03/11/24 04/22/24 History
(Dulcolax (bisacodyl)) aftr mom
calcium 500 mg (as 1 tab PO DAILY 03/11/24 04/22/24 History
carbonate)-vitamin D3 10 mcg (400
unit) tablet (Calcium 500 + D)
carboxymethylcellulose 0.5 1 drp BOTH EYES BID 03/11/24 04/22/24 History
%-glycerin 0.9 % eye drops
(Refresh Optive)
clopidogrel 75 mg tablet (Plavix) 75 mg PO DAILY 03/11/24 04/22/24 History
duloxetine 20 mg capsule,delayed 20 mg PO DAILY 03/11/24 04/22/24 History
release (Cymbalta)
finasteride 5 mg tablet 5 mg PO DAILY 03/11/24 04/22/24 History
ipratropium 0.5 mg-albuterol 3 mg 3 ml inhalation R TIDPRN PRN sob 03/11/24 04/22/24 History
(2.5 mg base)/3 mL nebulization
soln
ipratropium bromide 21 mcg (0.03 2 spray intranasal BID 03/11/24 04/22/24 History
%) nasal spray
lactulose 10 gram/15 mL oral 10 g PO DAILYPRN PRN cosntipation 03/11/24 04/22/24 History
solution
lidocaine 4 % topical patch 2 patch topical DAILY 03/11/24 04/22/24 History
magnesium hydroxide 400 mg/5 mL 2,400 mg PO HSPRN PRN constipation 03/11/24 04/22/24 History
oral suspension (Milk of Magnesia)
omeprazole 10 mg capsule,delayed 10 mg PO DAILY 03/11/24 04/22/24 History
release
pyridoxine (vitamin B6) 100 mg 100 mg PO DAILY 03/11/24 04/22/24 History
tablet
sodium chloride 0.65 % nasal spray 1 spray intranasal QIDPRN PRN 03/11/24 04/22/24 History
aerosol (Saline Nasal) dryness
tamsulosin 0.4 mg capsule (Flomax) 0.4 mg PO HS 03/11/24 04/22/24 History
polyethylene glycol 3350 17 gram 17 g PO BID #0 ea 03/15/24 04/22/24 Rx
oral powder packet
sennosides 8.6 mg-docusate sodium 2 tab PO BID #0 tabs 03/15/24 04/22/24 Rx
50 mg tablet
carbamide peroxide 6.5 % ear drops 3 drp EACH EAR HS 04/22/24 04/22/24 History
(Debrox)
lubiprostone 8 mcg capsule 8 mcg PO DAILY@0630 04/22/24 04/22/24 History
sodium chloride 1,000 mg soluble 1,000 mg PO BID 04/22/24 04/22/24 History
tablet
Review of Systems
-
Unable to obtain full review of systems at this time due to: Other (he is a poor historian and most of history was obtained from his medical chart)
History Source: Patient
All other systems: Negative unless noted
Physical Exam
Vital Signs
Temp Pulse Resp BP Pulse Ox
99.3 F 65 26 133/71 94
04/22/24 13:26 04/22/24 13:15 04/22/24 13:00 04/22/24 13:15 04/22/24 13:00
Lab Results
04/22/24 11:04
04/22/24 11:04
Troponin I 0.104 ng/ml H* 04/22/24 11:04
Physical Exam
General: Well Developed and No Apparent Distress
HEENT: Normocephalic and Moist Mucous Membranes
Respiratory: Crackles (bibasilar)
Cardiac: S1/S2 and Regular Rhythm
Breast: Deferred by me
GI: Soft, Non Tender, Non Distended and Normal Bowel Sounds
Rectal: Deferred by Provider
Genito-urinary: Clear Urine
Musculoskeletal: No Clubbing, No Cyanosis and No Edema
Skin: Warm and Dry
Neuro: Awake, Alert and Oriented
Psych: Calm
Impression / Plan
-
HFpEF - acute.
- EF normal on echo 2021.
- agree with IV diuresis, careful monitoring of labs and weights.
- update echo.
- hospitalist treating with ABX as well.
CAD - prior LAD PCI 2012.
- denies angina.
- continue medical therapy.
Non-ischemic myocardial injury - acute in the setting of new acute HFpEF and possible PNA.
- trop 0.104.
- continue medical therapy.
HTN - stable on medical therapy.
HLD - on Lipitor, continue.
- LDL 77 04/2023.
Data Reviewed
-
EKG: Tracing Personally Visualized and interpreted (SR with PACs 71 bpm)
Medical Tests (Nuc Med, Echo etc): Report Reviewed by me (echo 05/2021: normal function EF 60-65%, no valve disease.)
Labs: Labs Reviewed by me
Old Records: Reviewed
[2024-04-22 14:41] LABS: Procalcitonin 3.55 ng/ml (0.0-0.25)
[2024-04-22] MEDS: LOVENOX 40 MG SC (20:11)
[2024-04-22] MEDS: MIRALAX 17 GRAMS PO (20:12)
[2024-04-22] MEDS: REFRESH CELLUVISC GEL 1 DROPS BOTH EYES (20:12)
[2024-04-22] MEDS: SODIUM CHLORIDE 1 GRAM PO (20:13)
[2024-04-22] MEDS: SENOKOT-S 2 TABLET PO (20:13)
[2024-04-22 20:29] LABS: Troponin I 0.083 ng/ml
[2024-04-22] MEDS: LIPITOR 40 MG PO (20:41)
--- NOTE | 2024-04-22 23:00 | PTCARENOTE ---
Patient transferred from ED via stretcher. Patient pulled from stretcher to bed. Patient A&Ox3. Oriented to unit. Call light within reach. Care ongoing.
[2024-04-22] MEDS: FLOMAX 0.4 MG PO (23:41)
[2024-04-23] MEDS: DEBROX EAR DROPS 1 DROP BOTH EARS ×2 (00:55→22:23)
[2024-04-23 01:59] LABS: Troponin I 0.089 ng/ml
[2024-04-23 03:00] VITALS: BP 146/73
[2024-04-23 07:00] VITALS: BP 124/47
[2024-04-23 09:01] LABS: Hematocrit 30.2 % (39.0-52.0); Hemoglobin 10.1 g/dL (13.0-18.0); Mean Corp Hgb Conc. 33.4 g/dL (33.0-37.0); Mean Corpuscular Hgb 32.7 pg (27.0-31.0); Mean Corpuscular Volume 97.7 fL (80.0-94.0); Mean Platelet Volume 9.8 fL (7.4-10.4); Platelet Count 138 10^3/uL (130-400); Red Blood Cell Count 3.09 10^6/uL (4.70-6.10); Red Cell Dist. Width 17.4 % (11.5-14.5); White Blood Cell Count 4.5 10^3/uL (4.8-10.8)
[2024-04-23] MEDS: LASIX 40 MG IV (09:01)
[2024-04-23] MEDS: LOW STRENGTH ASPIRIN 81 MG PO (09:02)
[2024-04-23] MEDS: OSCAL 500 + D 500 MG PO (09:02)
[2024-04-23] MEDS: PROSCAR 5 MG PO (09:02)
[2024-04-23] MEDS: SENOKOT-S 2 TABLET PO ×2 (09:02→20:20)
[2024-04-23] MEDS: VIBRAMYCIN 100 MG PO ×2 (09:02→20:20)
[2024-04-23] MEDS: LIDOCAINE 4% PATCH 2 PATCH TOPICAL (09:03)
[2024-04-23] MEDS: SODIUM CHLORIDE 1 GRAM PO ×2 (09:03→20:22)
[2024-04-23] MEDS: VITAMIN B-6 100 MG PO (09:03)
[2024-04-23] MEDS: MIRALAX 17 GRAMS PO ×2 (09:03→20:23)
[2024-04-23] MEDS: CYMBALTA DELAYED RELEASE 20 MG PO (09:03)
[2024-04-23] MEDS: PLAVIX 75 MG PO (09:03)
[2024-04-23 09:27] LABS: Blood Urea Nitrogen 41 mg/dl (9-20); Calcium 9.7 mg/dl (8.4-10.2); Carbon Dioxide 24 mmol/L (22-30); Chloride 102 mmol/L (98-107); Estimated Creatinine Clearance 47 ml/min; Glucose 94 mg/dl (70-99); HDL Cholesterol 19 mg/dl; LDL Cholesterol, Calculated 63 mg/dl; Magnesium 1.8 mg/dl (1.6-2.3); Potassium 4.4 mmol/L (3.5-5.1); Sodium 134 mmol/L (135-145); Total Cholesterol 104 mg/dl (50-199); Triglyceride 110 mg/dl (10-149); Very Low Density Lipoprotein 22 mg/dl (0-30); eGFR > 60.00
[2024-04-23 09:59] LABS: TSH Reflex To Free T4 5.28 uIU/ml (0.47-4.68)
[2024-04-23 10:29] LABS: Free T4 0.96 ng/dl (0.78-2.19)
[2024-04-23 11:00] VITALS: BP 112/62
--- NOTE | 2024-04-23 12:30 | W.PN.HOSP.TC ---
Today's Communication/Plan
-
Assessment / Plan
Assessment / Plan
NAD, brushing his teeth
Scleral Anicteric
Bibasilar crackles
IRR, S1/S2
Soft, NT, ND, BS+
Warm, Dry
Right lower extremity swollen
HFpEF, acute exacerbation
Continue IV diuretics
Repeat 2D echocardiogram
ESBL E. coli bacteremia, ?ecoli pna
Start isolation precautions
Stop Rocephin
Check urine analysis with reflex culture
Start meropenem
Consult ID
RLE swelling
DVT Study
Irregular rhythm
-EKG reviewed SR and PAC
CAD s/p PCI to LAD
Continue medical therapy
Nonischemic myocardial injury in the setting of acute new HFpEF/acute infection
Check 2 echo
HTN
Continue antihypertensives
HLD
Continue statin
BPH
Continue flomax
Gerd
Continue PPI
Anticipated Discharge: > 48 hours
Subjective/Interval History
-
Date of Service: April 23, 2024
Seen and examined. Patient rn transitional care brushing his teeth. Had no new complaints.
Noted that his right lower extremity was more swollen than his left lower extremity
Objective Data
-
Labs:
Laboratory Results
04/23/24
08:14
WBC 4.5 L
Hgb 10.1 L
Hct 30.2 L
Plt Count 138
Sodium 134 L
Potassium 4.4
Chloride 102
Carbon Dioxide 24
BUN 41 H
Creatinine 1.1
Glucose 94
Calcium 9.7
Vital Signs:
Vital Signs
Temp Pulse Resp BP Pulse Ox
98.2 F 62 28 112/62 94
04/23/24 11:00 04/23/24 11:00 04/23/24 11:00 04/23/24 11:00 04/23/24 11:00
I&O
04/22/24 04/23/24 04/24/24
06:59 06:59 06:59
Output Total 1700 / 1700
Balance -1700 / -1700
[2024-04-23] MEDS: REFRESH CELLUVISC GEL 1 DROPS BOTH EYES ×2 (12:53→20:22)
[2024-04-23] MEDS: MERREM 1000 MG IV (12:53)
[2024-04-23] MEDS: STERILE WATER FOR INJECTION 20 ML IV (12:53)
[2024-04-23] MEDS: PROTONIX 20 MG PO (12:53)
[2024-04-23 15:00] VITALS: BP 127/65
--- NOTE | 2024-04-23 15:26 | W.PN.CD ---
Today's Communication / Plan
-
Decrease to daily diuresis given ongoing bacteremia
Echo Thursday
Abx per primary
Impression / Plan
-
HFpEF - acute.
- EF normal on echo 2021.
- agree with IV diuresis, will decrease to daily to not be too aggressive in the setting of bacteremia
- Dry weight 63-64 kg
- update echo Thursday.
ESBL bacteremia
- Unknown source. Maybe pneumonia
- ID consulted
- continue antibiotics
- TTE as above
CAD - prior LAD PCI 2012.
- denies angina.
- continue medical therapy.
Non-ischemic myocardial injury - acute in the setting of new acute HFpEF and possible PNA.
- trop 0.104.
- continue medical therapy.
HTN - stable on medical therapy.
HLD - on Lipitor, continue.
- LDL 77 04/2023.
Physical Exam
Vital Signs/Labs
Vital Signs
Temp Pulse Resp BP Pulse Ox
98.2 F 62 28 112/62 94
04/23/24 11:00 04/23/24 11:00 04/23/24 11:00 04/23/24 11:00 04/23/24 11:00
04/22/24 04/23/24 04/24/24
06:59 06:59 06:59
Actual Weight 68.1 kg
04/23/24 08:14
04/23/24 08:14
Magnesium 1.8 mg/dl (1.6-2.3) 04/23/24 08:14
Triglycerides 110 mg/dl (10-149) 04/23/24 08:14
LDL Cholesterol, Calc 63 mg/dl 04/23/24 08:14
VLDL Cholesterol, Calc 22 mg/dl (0-30) 04/23/24 08:14
HDL Cholesterol 19 mg/dl 04/23/24 08:14
Free T4 0.96 ng/dl (0.78-2.19) 04/23/24 08:14
LAB Results
04/22/24 04/22/24 04/23/24
11:04 19:57 01:20
Troponin I 0.104 H* 0.083 H* 0.089 H*
Physical Exam
Constitutional: No acute distress and Comfortable
Cardiovascular: Rhythm & rate is regular, Pedal edema is absent, S1S2 is normal and Murmur/rub/gallop absent
Respiratory: Rhonchi Present
Data Reviewed
-
Date of Service: April 23, 2024
Medical Decision Making: Reviewed Test Results, Independent Historian Assessment, Test Interpretation and Review of Case with other Provider
EKG: Tracing Personally Visualized and interpreted
Echo: Report Reviewed by me
Labs: Labs Reviewed by me
--- NOTE | 2024-04-23 15:44 | CON.ID ---
Consultation
-
Date/Time Consultation Requested: 04/23/2024 1045
Date/Time Consultation Performed: 04/23/2024 1540
Requesting Provider: Dr. Mason
Performing Provider: Dr. Singer
Reason for Consultation: Bacteremia
Chief Complaint / Past History
History of Present Illness
Eulogio Acevedo is an 83-year-old male with history of dementia and prior CVA being evaluated at the request of Dr. Mason in regards to bacteremia. History is obtained from chart review. The patient resides in a local [facility] and was sent
to the emergency room yesterday secondary to shortness of breath and fever. According to reviewed notes the patient was admitted from 03/11 through 03/15/2024 secondary to influenza A.
The patient was found to be febrile upon initial presentation. Blood cultures obtained at the time of admission are now positive for gram-negative rods with preliminary identification via PCR methodology as ESBL E. coli. Infectious Diseases is
asked to comment upon further antimicrobial management.
Past History
Additional Past Medical History:
CAD
Dyslipidemia
Hx CVA
Dementia
Depression
Congenital hearing loss
Additional Past Surgical History:
PCI with stenting
Allergy History:
Penicillins Allergy (Unknown, Verified 04/22/24 13:34)
Unknown- tolerated ceftriaxone in Feb 2024
Medications Reviewed: Yes
Current Antibiotics:
Doxycycline 100 mg p.o. every 12 hours
Meropenem 1 g IV every 12 hours
Social History
Tobacco: Non-Smoker
Alcohol: None
Drug: None
Living: [facility]
Employment: Not Employed
Review of Systems
Vital Signs
Temp Pulse Resp BP Pulse Ox
98.2 F 62 28 112/62 94
04/23/24 11:00 04/23/24 11:00 04/23/24 11:00 04/23/24 11:00 04/23/24 11:00
Physical Exam
Physical Exam
Constitutional: Comfortable, Chronically Ill and Non-toxic
Eyes: No Conjunctival Hemorrhage and Sclera Anicteric
Oral: No Thrush
Cardiovascular: S1/S2; Negative S3/S4
Pulmonary: Rhonchi (throughout), Coarse and Non Labored
Gastrointestinal: Soft, Non Tender, Non Distended and Normal Bowel Sounds
Neurological: Awake and Alert
Psychological: Calm
Lab / Diagnostic Study Results
04/23/24 08:14
04/23/24 08:14
Abs Immat Gran (auto) 0.0 10^3/uL (0-0.05) 04/22/24 11:04
Absolute Neuts (auto) 4.0 10^3/uL (1.4-6.5) 04/22/24 11:04
Absolute Lymphs (auto) 0.3 10^3/uL (1.2-3.4) L 04/22/24 11:04
Absolute Monos (auto) 0.3 10^3/uL (0.1-0.6) 04/22/24 11:04
Absolute Basos (auto) 0.0 10^3/uL (0-0.2) 04/22/24 11:04
Immature Gran % 0.4 % (0-0.5) 04/22/24 11:04
Neutrophils % 85.6 % (42.2-75.2) H 04/22/24 11:04
Lymphocytes % 6.9 % (20.5-51.1) L 04/22/24 11:04
Monocytes % 6.9 % (1.7-9.3) 04/22/24 11:04
Eosinophils % 0.0 % (0-6) 04/22/24 11:04
Basophils % 0.2 % (0-2) 04/22/24 11:04
Procalcitonin 3.55 ng/ml (0.0-0.25) H* 04/22/24 13:56
Microbiology Results
Micro:
04/22/24 14:02 Blood Culture - Preliminary
Blood/Venous Escherichia coli - ESBL
Gram Stain - Preliminary
04/22/24 14:07 Blood Culture - Preliminary
Blood/Venous Positive culture in progress
Gram Stain - Preliminary
04/22/24 11:06 Influenza Types A & B (MICHELA) - Final
Nasal Swab Negative for Influenza A & B, NAAT
Negative results must be combined with clinical observations
and patient history.
Nucleic Acid Amplification test (NAAT)performed on the
[employer] platform.
Imaging:
04/22/2024 CXR (portable): Diffusely increased interstitial markings bilaterally, mild bibasilar opacities, which appear improved compared to the prior study. No pleural effusion. No pneumothorax.
Assessment / Plan
E. coli bacteremia
- source unclear ?lung ?urine ?bowel
Normal white count with left shift
Fever
CAD
Dyslipidemia
Hx CVA
Dementia
Depression
Congenital hearing loss
Recommendations:
Continue empiric meropenem. Will change dosing to 500 mg every 6 hours.
Urinalysis pending.
If urine has significant pyuria, will check renal ultrasound. If negative, consider repeat CT of the abdomen and pelvis.
Of note, patient reports no bowel movements for several days.
Monitor white count and temperature curve.
Further recommendations as additional data is returned.
[2024-04-23] MEDS: STERILE WATER FOR INJECTION 10 ML IV (17:43)
[2024-04-23] MEDS: LIPITOR 40 MG PO (17:43)
[2024-04-23] MEDS: MERREM 500 MG IV (17:43)
[2024-04-23 19:00] VITALS: BP 95/55
[2024-04-23] MEDS: HEPARIN 5400 UNITS IV (19:58)
[2024-04-23] MEDS: HEPARIN 25000 UNITS/250 ML IV (20:02)
[2024-04-23] MEDS: LOVENOX SC (20:14)
[2024-04-23 20:25] LABS: APTT 31.9 Sec (23.4-35.0)
[2024-04-23] MEDS: FLOMAX 0.4 MG PO (22:23)
[2024-04-23 23:00] VITALS: BP 102/50
[2024-04-23] MEDS: DUONEB 3 ML INH (23:18)
[2024-04-24] MEDS: STERILE WATER FOR INJECTION 10 ML IV ×4 (00:39→17:23)
[2024-04-24] MEDS: MERREM 500 MG IV ×4 (00:40→17:22)
[2024-04-24 03:00] VITALS: BP 101/51
[2024-04-24 03:50] LABS: APTT > 200 Sec (23.4-35.0)
[2024-04-24 06:00] VITALS: BMI 20.8
[2024-04-24 07:00] VITALS: BP 145/73
[2024-04-24] MEDS: DUONEB 3 ML INH ×2 (08:07→21:30)
[2024-04-24] MEDS: LIDOCAINE 4% PATCH 2 PATCH TOPICAL (08:38)
[2024-04-24] MEDS: VITAMIN B-6 100 MG PO (08:39)
[2024-04-24] MEDS: PROTONIX 20 MG PO (08:39)
[2024-04-24] MEDS: REFRESH CELLUVISC GEL 1 DROPS BOTH EYES ×2 (08:39→20:43)
[2024-04-24] MEDS: VIBRAMYCIN 100 MG PO ×2 (08:39→20:43)
[2024-04-24] MEDS: LOW STRENGTH ASPIRIN 81 MG PO (08:39)
[2024-04-24] MEDS: CYMBALTA DELAYED RELEASE 20 MG PO (08:39)
[2024-04-24] MEDS: OSCAL 500 + D 500 MG PO (08:40)
[2024-04-24] MEDS: SENOKOT-S 2 TABLET PO ×2 (08:40→20:43)
[2024-04-24] MEDS: LASIX 40 MG IV (08:40)
[2024-04-24] MEDS: SODIUM CHLORIDE 1 GRAM PO ×2 (08:40→20:43)
[2024-04-24] MEDS: PLAVIX 75 MG PO (08:40)
[2024-04-24] MEDS: MIRALAX 17 GRAMS PO ×2 (08:40→20:52)
[2024-04-24] MEDS: PROSCAR 5 MG PO (08:40)
--- NOTE | 2024-04-24 10:53 | W.PN.HOSP.TC ---
Today's Communication/Plan
-
On meropenem
May need CTAP
IV diuretics
2d Echo
Follow ID and Cards recs
Assessment / Plan
Assessment / Plan
NAD, brushing his teeth
Scleral Anicteric
Bibasilar crackles
IRR, S1/S2
Soft, NT, ND, BS+
Warm, Dry
Right lower extremity swollen
HFpEF, acute exacerbation
Continue IV diuretics
Repeat 2D echocardiogram
ESBL E. coli bacteremia, ?ecoli pna, ?UA/Ucx
Start isolation precautions
Stop Rocephin
Check urine analysis with reflex culture
Started meropenem
ID following
DVT - RLE - Acute
Heparin gtt
-Will need to discuss with cardiology antiplatelets and anticoagulation
--Likely will plan for plavix and eliquis and drop asa
Irregular rhythm
-EKG reviewed SR and PAC
CAD s/p PCI to LAD
Dapt + statin
Nonischemic myocardial injury in the setting of acute new HFpEF/acute infection
Check 2 echo
HTN
Continue antihypertensives
HLD
Continue statin
BPH
Continue flomax
Gerd
Continue PPI
Anticipated Discharge: > 48 hours
Subjective/Interval History
-
Date of Service: April 24, 2024
Complaints. No acute ov seen and examined. No new complaints. No acute overnight events.
Objective Data
-
Labs:
Laboratory Results
04/24/24 04/24/24 04/24/24
02: 06:00 11:55
WBC Pending
Hgb Pending
Hct Pending
Plt Count Pending
APTT > 200 H* Pending
Sodium Pending
Potassium Pending
Chloride Pending
Carbon Dioxide Pending
BUN Pending
Creatinine Pending
Glucose Pending
Calcium Pending
Vital Signs:
Vital Signs
Temp Pulse Resp BP Pulse Ox
97.6 F 66 24 145/73 96
04/24/24 07:00 04/24/24 08:10 04/24/24 08:10 04/24/24 07:00 04/24/24 08:10
I&O
04/23/24 04/24/24 04/25/24
06:59 06:59 06:59
Intake Total 600 / 600 120 / 120
Output Total 1700 / 1700
Balance -1700 / -1700 600 / 600 120 / 120
[2024-04-24 11:00] VITALS: BP 122/61
[2024-04-24 12:41] LABS: Hematocrit 30.6 % (39.0-52.0); Hemoglobin 10.1 g/dL (13.0-18.0); Mean Corpuscular Hgb 33.3 pg (27.0-31.0); Platelet Count 151 10^3/uL (130-400); Red Blood Cell Count 3.03 10^6/uL (4.70-6.10); Red Cell Dist. Width 17.2 % (11.5-14.5); White Blood Cell Count 3.3 10^3/uL (4.8-10.8)
[2024-04-24 12:42] LABS: APTT 48.7 Sec (23.4-35.0)
[2024-04-24 12:58] LABS: Blood Urea Nitrogen 47 mg/dl (9-20); Calcium 9.7 mg/dl (8.4-10.2); Carbon Dioxide 26 mmol/L (22-30); Chloride 102 mmol/L (98-107); Estimated Creatinine Clearance 44 ml/min; Glucose 200 mg/dl (70-99); Potassium 3.7 mmol/L (3.5-5.1); Sodium 133 mmol/L (135-145); eGFR > 60.00
[2024-04-24] MEDS: HEPARIN 5400 UNITS IV ×2 (13:00→20:34)
--- NOTE | 2024-04-24 13:41 | W.PN.ID1 ---
Date of Service
Date of Service: April 24, 2024
Today's Communication
Continue antibiotics.
Assessment / Plan
E. coli bacteremia
- source unclear ?lung ?urine ?bowel
Normal white count with left shift
Fever
CAD
Dyslipidemia
Hx CVA
Dementia
Depression
Congenital hearing loss
Recommendations:
Continue empiric meropenem (day #2)
Urinalysis pending.
If urine has significant pyuria, will check renal ultrasound. If negative, consider repeat CT of the abdomen and pelvis or renal ultrasound
Monitor white count and temperature curve.
Further recommendations as additional data is returned.
Chief Complaint
-: Bacteremia
Subjective / Review of Systems
Review of Systems: No Fever, No Chills, Cough and No Sputum Production
Vital Signs / Physical Exam
Vital Signs
Vital Signs
Temp Pulse Resp BP Pulse Ox
97.6 F 61 28 122/61 94
04/24/24 11:00 04/24/24 11:00 04/24/24 11:00 04/24/24 11:00 04/24/24 11:00
Physical Exam
Constitutional: No Acute Distress, Comfortable, Chronically Ill and Non-toxic
Cardiovascular: S1/S2; Negative S3/S4
Pulmonary: Rhonchi (Scattered), Coarse and Non Labored
Gastrointestinal: Soft and Non Tender
Neurological: Awake and Alert
Objective Data
Lab Data
Lab Results
04/24/24 11:49
04/24/24 11:49
APTT 48.7 Sec (23.4-35.0) H 04/24/24 11:49
Estimated Creat Clear 44 ml/min 04/24/24 11:49
Total Bilirubin 0.4 mg/dl (0.2-1.3) 04/22/24 11:04
AST 32 U/L (17-59) 04/22/24 11:04
ALT 35 U/L (0-50) 04/22/24 11:04
Alkaline Phosphatase 102 U/L (38-126) 04/22/24 11:04
Most recent labs reviewed.
Micro Results:
04/22/24 14:02 Blood Culture - Preliminary
Blood/Venous Escherichia coli - ESBL
Gram Stain - Preliminary
04/22/24 14:07 Blood Culture - Preliminary
Blood/Venous Escherichia coli - ESBL
Gram Stain - Preliminary
04/22/24 11:06 Influenza Types A & B (MICHELA) - Final
Nasal Swab Negative for Influenza A & B, NAAT
Negative results must be combined with clinical observations
and patient history.
Nucleic Acid Amplification test (NAAT)performed on the
[employer] platform.
Imaging:
04/22/2024 CXR (portable): Diffusely increased interstitial markings bilaterally, mild bibasilar opacities, which appear improved compared to the prior study. No pleural effusion. No pneumothorax.
Care Review
Plan reviewed with: Physician (Hospitalist)
[2024-04-24 15:00] VITALS: BP 134/70
--- NOTE | 2024-04-24 16:57 | W.PN.CD ---
Today's Communication / Plan
-
Switch to p.o. Lasix starting tomorrow
TTE tomorrow
Impression / Plan
-
HFpEF - acute.
- EF normal on echo 2021.
- Dry weight 63-64 kg. Suspect he is euvolemic. Switch to PO Lasix
- update echo Thursday.
ESBL bacteremia
- Unknown source. Maybe pneumonia
- ID consulted
- continue antibiotics
- TTE as above
CAD - prior LAD PCI 2012.
- denies angina.
- continue medical therapy.
Non-ischemic myocardial injury - acute in the setting of new acute HFpEF and possible PNA.
- trop 0.104.
- continue medical therapy.
HTN - stable on medical therapy.
HLD - on Lipitor, continue.
- LDL 77 04/2023.
Subjective: Patient difficult to understand due to speech impediment. No pain. Telemetry with frequent PVCs.
Physical Exam
Vital Signs/Labs
Vital Signs
Temp Pulse Resp BP Pulse Ox
97.4 F 56 28 134/70 98
04/24/24 15:00 04/24/24 15:00 04/24/24 15:00 04/24/24 15:00 04/24/24 15:00
04/23/24 04/24/24 04/25/24
06:59 06:59 06:59
Actual Weight 68.1 kg 63.957 kg
04/24/24 11:49
04/24/24 11:49
APTT 48.7 Sec (23.4-35.0) H 04/24/24 11:49
Magnesium 1.8 mg/dl (1.6-2.3) 04/23/24 08:14
Triglycerides 110 mg/dl (10-149) 04/23/24 08:14
LDL Cholesterol, Calc 63 mg/dl 04/23/24 08:14
VLDL Cholesterol, Calc 22 mg/dl (0-30) 04/23/24 08:14
HDL Cholesterol 19 mg/dl 04/23/24 08:14
Free T4 0.96 ng/dl (0.78-2.19) 04/23/24 08:14
LAB Results
04/22/24 04/22/24 04/23/24
11:04 19:57 01:20
Troponin I 0.104 H* 0.083 H* 0.089 H*
Physical Exam
Constitutional: No acute distress and Comfortable
Cardiovascular: Rhythm & rate is regular, Pedal edema is absent and Systolic murmur present
Respiratory: Respiratory effort normal and Crackles Present
Data Reviewed
-
Date of Service: April 24, 2024
Medical Decision Making: Reviewed Test Results, Test Interpretation and Review of Case with other Provider
EKG: Tracing Personally Visualized and interpreted
Echo: Report Reviewed by me
Labs: Labs Reviewed by me
[2024-04-24] MEDS: LIPITOR 40 MG PO (17:22)
[2024-04-24] MEDS: HEPARIN 25000 UNITS/250 ML IV (20:34)
[2024-04-24] MEDS: FLOMAX 0.4 MG PO (20:43)
[2024-04-24] MEDS: DEBROX EAR DROPS 1 DROP BOTH EARS (20:43)
[2024-04-24 20:45] VITALS: BP 123/68
[2024-04-24 22:35] VITALS: BP 125/68
[2024-04-25] MEDS: MERREM 500 MG IV ×4 (00:49→17:09)
[2024-04-25] MEDS: STERILE WATER FOR INJECTION 10 ML IV ×4 (00:49→17:09)
[2024-04-25 02:05] LABS: APTT 160.6 Sec (23.4-35.0)
[2024-04-25 04:04] VITALS: BP 155/76
[2024-04-25 05:42] VITALS: BMI 20.5
[2024-04-25 07:43] VITALS: BP 150/77
[2024-04-25 08:01] LABS: Hematocrit 30.7 % (39.0-52.0); Hemoglobin 10.4 g/dL (13.0-18.0); Mean Corp Hgb Conc. 33.9 g/dL (33.0-37.0); Mean Corpuscular Hgb 32.6 pg (27.0-31.0); Mean Corpuscular Volume 96.2 fL (80.0-94.0); Mean Platelet Volume 9.3 fL (7.4-10.4); Platelet Count 146 10^3/uL (130-400); Red Blood Cell Count 3.19 10^6/uL (4.70-6.10); Red Cell Dist. Width 16.6 % (11.5-14.5); White Blood Cell Count 3.2 10^3/uL (4.8-10.8)
[2024-04-25 08:12] LABS: APTT 80.8 Sec (23.4-35.0)
--- NOTE | 2024-04-25 08:56 | W.PN.CD ---
Addendum entered and electronically signed by Arash Coe MD 04/25/24 11:23:
I saw and examined the patient.
The ETHYLENE [employer] PANELBOARD OPERATOR's note was reviewed and I agree with the note.
Comment: For Echo today. DVT noted. Single agent oral anticoagulation without antiplatelet medication makes most sense given age/fragility. If OAT is stopped in future single agent ASA for CAD is fine as PCI was remote.
Addendum entered and electronically signed by DANIEL Juarez 04/25/24 09:10:
DVT - Nonocclusive thrombus in the right profunda femoris vein
-On heparin, consider transition to apixaban
Original Note:
Today's Communication / Plan
-
Echocardiogram today
Impression / Plan
-
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
HFpEF - acute.
- EF normal on echo 2021.
- Dry weight 63-64 kg. Suspect he is euvolemic. Now on PO Lasix
- TTE today
ESBL bacteremia, source unknown
- ID following on antibiotics.
- TTE today
CAD - prior LAD PCI 2012.
- denies angina.
- continue medical therapy (DAPT & statin, no BB due to bradycardia)
Non-ischemic myocardial injury - acute in the setting of new acute HFpEF and acute illness
- Peak trop 0.104.
- continue medical mgmt.
HTN - stable on medical therapy.
HLD - on Lipitor with LDL (77 04/2023), continue
SUBJECTIVE:
Patient difficult to understand due to speech impediment. No pain. Breathing 'good'. Telemetry with PVCs.
Physical Exam
Vital Signs/Labs
Vital Signs
Temp Pulse Resp BP Pulse Ox
97.8 F 60 24 150/77 96
04/25/24 07:43 04/25/24 07:43 04/25/24 07:43 04/25/24 07:43 04/25/24 07:43
04/24/24 04/25/24 04/26/24
06:59 06:59 06:59
Actual Weight 63.957 kg 62.8 kg
04/25/24 07:42
APTT Cancelled 04/25/24 18:00
Magnesium 1.8 mg/dl (1.6-2.3) 04/23/24 08:14
Triglycerides 110 mg/dl (10-149) 04/23/24 08:14
LDL Cholesterol, Calc 63 mg/dl 04/23/24 08:14
VLDL Cholesterol, Calc 22 mg/dl (0-30) 04/23/24 08:14
HDL Cholesterol 19 mg/dl 04/23/24 08:14
Free T4 0.96 ng/dl (0.78-2.19) 04/23/24 08:14
LAB Results
04/22/24 04/22/24 04/23/24
11:04 19:57 01:20
Troponin I 0.104 H* 0.083 H* 0.089 H*
Physical Exam
Constitutional: No acute distress and Comfortable
EENT: Anicteric and Moist mucous membranes
Cardiovascular: Rhythm & rate is regular and Pedal edema is absent
Respiratory: Respiratory effort normal and Lungs clear to auscul.
GI: Soft, Distention absent, Non tender and Normal bowel sounds
Neuro/Psych: Alert
Other: Skin (warm and dry)
Data Reviewed
-
Date of Service: April 25, 2024
EKG: Report Reviewed by me
Labs: Labs Reviewed by me
Old Records: Reviewed
[2024-04-25 09:14] LABS: Blood Urea Nitrogen 40 mg/dl (9-20); Calcium 9.8 mg/dl (8.4-10.2); Carbon Dioxide 28 mmol/L (22-30); Chloride 104 mmol/L (98-107); Estimated Creatinine Clearance 48 ml/min; Glucose 103 mg/dl (70-99); Potassium 4.1 mmol/L (3.5-5.1); Sodium 136 mmol/L (135-145); eGFR > 60.00
[2024-04-25] MEDS: PROSCAR 5 MG PO (09:19)
[2024-04-25] MEDS: REFRESH CELLUVISC GEL 1 DROPS BOTH EYES ×2 (09:19→20:56)
[2024-04-25] MEDS: SENOKOT-S 2 TABLET PO ×2 (09:19→20:57)
[2024-04-25] MEDS: LASIX 40 MG PO (09:19)
[2024-04-25] MEDS: LOW STRENGTH ASPIRIN 81 MG PO (09:19)
[2024-04-25] MEDS: PROTONIX 20 MG PO (09:19)
[2024-04-25] MEDS: PLAVIX 75 MG PO (09:19)
[2024-04-25] MEDS: MIRALAX 17 GRAMS PO ×2 (09:19→20:56)
[2024-04-25] MEDS: VIBRAMYCIN 100 MG PO ×2 (09:19→20:57)
[2024-04-25] MEDS: OSCAL 500 + D 500 MG PO (09:20)
[2024-04-25] MEDS: LIDOCAINE 4% PATCH 2 PATCH TOPICAL (09:20)
[2024-04-25] MEDS: CYMBALTA DELAYED RELEASE 20 MG PO (09:22)
[2024-04-25] MEDS: VITAMIN B-6 100 MG PO (09:22)
[2024-04-25] MEDS: SODIUM CHLORIDE 1 GRAM PO ×2 (09:22→20:57)
[2024-04-25] MEDS: DUONEB 3 ML INH (09:59)
[2024-04-25 10:53] VITALS: BP 136/73
--- NOTE | 2024-04-25 12:00 | W.PN.ID1 ---
Date of Service
Date of Service: April 25, 2024
Today's Communication
Continue antibiotics.
Assessment / Plan
E. coli bacteremia
- source unclear ?lung ?urine ?bowel. Given significant infiltrates suspect lung.
Normal white count with left shift
Fever
CAD
Dyslipidemia
Hx CVA
Dementia
Depression
Congenital hearing loss
Recommendations:
Continue empiric meropenem (d#3)
Urinalysis not received yet.
Monitor white count and temperature curve.
Chief Complaint
-: Bacteremia
Subjective / Review of Systems
Review of Systems: No Fever
Vital Signs / Physical Exam
Vital Signs
Vital Signs
Temp Pulse Resp BP Pulse Ox
97.1 F 71 20 136/73 97
04/25/24 10:53 04/25/24 10:53 04/25/24 10:53 04/25/24 10:53 04/25/24 10:53
Physical Exam
Constitutional: No Acute Distress, Comfortable, Chronically Ill and Non-toxic
Cardiovascular: S1/S2; Negative S3/S4
Pulmonary: Rhonchi (Scattered), Coarse and Non Labored
Gastrointestinal: Soft and Non Tender
Neurological: Awake and Alert
Objective Data
Lab Data
Lab Results
04/25/24 07:42
04/25/24 07:42
APTT Cancelled 04/25/24 18:00
Estimated Creat Clear 48 ml/min 04/25/24 07:42
Total Bilirubin 0.4 mg/dl (0.2-1.3) 04/22/24 11:04
AST 32 U/L (17-59) 04/22/24 11:04
ALT 35 U/L (0-50) 04/22/24 11:04
Alkaline Phosphatase 102 U/L (38-126) 04/22/24 11:04
Most recent labs reviewed.
Micro Results:
04/22/24 14:02 Blood Culture - Final
Blood/Venous Escherichia coli - ESBL
Gram Stain - Final
04/22/24 14:07 Blood Culture - Final
Blood/Venous Escherichia coli - ESBL
Gram Stain - Final
04/22/24 11:06 Influenza Types A & B (MICHELA) - Final
Nasal Swab Negative for Influenza A & B, NAAT
Negative results must be combined with clinical observations
and patient history.
Nucleic Acid Amplification test (NAAT)performed on the
[employer] platform.
Imaging:
04/22/2024 CXR (portable): Diffusely increased interstitial markings bilaterally, mild bibasilar opacities, which appear improved compared to the prior study. No pleural effusion. No pneumothorax.
--- NOTE | 2024-04-25 12:54 | CM ---
Addendum entered by Lindsay Marquez 04/25/24 15:45:
Per [facility] liaison; patient will need authorization to return. Patient has [employer] coverage and the NPI is [facility] [id number]/ Dr. Pisano . CM will need to communicate to facility when auth in place.
Addendum entered by Lindsay Marquez 04/25/24 14:28:
Patient self propels in wheelchair and is dependent for care Per liaison. Patient can return when medically appropriate. Please call report to [facility] [phone] unit a-2. CM will continue to follow for discharge planning needs.
Plan; return to SNF
Original Note:
Patient seen at bedside. Patient is alf care at [facility]. CM left with liaisons to confirm prior needs at SNF and bed hold. Patient sister involved and supportive. Patient does have a speach impediment. Patient was considered full care at prior
admission to , await confirmation from SNF liaison. CM will continue to follow for discharge planning needs.
Plan; return to SNF; [facility]
--- NOTE | 2024-04-25 13:45 | PTOTSP ---
Speech Language Pathology
Pt seen for clinical bedside swallow evaluation. P.O. trials of regular solids and thin liquids provided. Prolonged mastication of solids secondary to decreased dentition, not a true oral dysphagia. No overt signs of aspiration.
Recommend:
(1) Regular solids/thin liquids (easy to chew level)
(2) General aspiration precautions
(3) Meds as tolerated
(4) PLASTIC DIE MAKER APPRENTICE to sign off. Please reconsult as indicated
--- NOTE | 2024-04-25 14:13 | W.PN.HOSP.TC ---
Today's Communication/Plan
-
Oral diuretics
Continue meropenem
Transition heparin drip to DOAC tomorrow (and DC DAPT)
Follow-up echocardiogram
Speech and swallow eval
Assessment / Plan
Assessment / Plan
#ESBL E. coli bacteremia
#Suspected aspiration pneumonia
-Suspicion for aspiration pneumonia; cannot completely rule out bowel or etiology
-Does have infiltrate seen on x-ray, 2/2 blood cultures returned positive for ESBL
-Initially on ceftriaxone which was escalated to meropenem after culture result
-Has remained hemodynamically stable, no SIRS, nontoxic-appearing
-Continue IV meropenem and consider repeat blood cultures
-Trend CBC and temperature curve, monitor respiratory status
-Speech and swallow evaluation ordered
-ID following
#Acute HFpEF
-Last echocardiogram in 2021 with normal LVEF; repeat TTE 04/25 pending
-Does have history of CAD so cannot rule out ischemic etiology at this time
-Status post IV diuresis and was transition to oral diuretics today (04/25)
-Follow-up echocardiogram, titrate GDMT appropriately
-Continue on telemetry
#Acute DVT
-Ultrasound on 04/23/2024 showed DVT in the right profunda femoris vein
-Was started on heparin drip upon arrival, no signs of PE or other complication
-Planning to transition to apixaban as oral option
-Plan for Eliquis 10 mg twice daily starting 04/26 through 04/30
-De-escalate to Eliquis 5 mg twice daily on 05/01, indefinitely
#CAD s/p LAD PCI (2012)
#Nonischemic myocardial injury
-Not associated with any systolic dysfunction
-Home regimen includes DAPT, high intensity statin
-Per cardiology, will stop DAPT when on DOAC due to distant PCI
-NIMI here secondary to CHF decompensation
#COPD
-Noted per history, home medications include DuoNebs and albuterol MDI
-No known recent decompensations nor history of intubation
-Does not appear to be in COPD exacerbation at this time
-No known history of significant pulmonary hypertension
#Chronic hyponatremia
-Suspect euvolemia, home regimen includes NaCl tablets twice daily and 40 oz H2O restriction
-Most recent BMP with sodium levels WNL
-Trend BMP
#GERD
-Home regimen includes low-dose PPI daily
-No known history of Pressley's esophagus or erosive disease
#H/O CVA
-Unclear etiology, no known history of AF/AFL or high-grade cerebrovascular lesions
-Home regimen includes high intensity statin, DAPT
-DAPT to be transition to DOAC
DVT prophylaxis: Heparin drip -> Eliquis
Diet: Cholesterol-lowering, 40 ounce fluid restriction
CODE STATUS: DNR
Anticipated Discharge: 24 - 48 hours
Subjective/Interval History
-
Date of Service: April 25, 2024
Objective Data
-
Labs:
Laboratory Results
04/25/24 04/25/24
07:42 13:44
WBC 3.2 L
Hgb 10.4 L
Hct 30.7 L
Plt Count 146
APTT 80.8 H 78.0 H
Sodium 136
Potassium 4.1
Chloride 104
Carbon Dioxide 28
BUN 40 H
Creatinine 1.0
Glucose 103 H
Calcium 9.8
Vital Signs:
Vital Signs
Temp Pulse Resp BP Pulse Ox
97.1 F 71 20 136/73 97
04/25/24 10:53 04/25/24 10:53 04/25/24 10:53 04/25/24 10:53 04/25/24 10:53
I&O
04/24/24 04/25/24 04/26/24
06:59 06:59 06:59
Intake Total 600 / 600 360 / 360
Balance 600 / 600 360 / 360
[2024-04-25 15:15] VITALS: BP 147/78
[2024-04-25] MEDS: HEPARIN 25000 UNITS/250 ML IV (17:05)
[2024-04-25] MEDS: LIPITOR 40 MG PO (17:08)
[2024-04-25 19:00] VITALS: BP 139/78
[2024-04-25] MEDS: DEBROX EAR DROPS 1 DROP BOTH EARS (20:57)
[2024-04-25] MEDS: FLOMAX 0.4 MG PO (20:58)
[2024-04-25 23:00] VITALS: BP 150/86
[2024-04-26] MEDS: MERREM 500 MG IV ×4 (00:34→12:31)
[2024-04-26] MEDS: STERILE WATER FOR INJECTION 10 ML IV ×3 (00:34→12:31)
[2024-04-26 03:00] VITALS: BP 161/87
[2024-04-26 06:00] VITALS: BMI 21.0
[2024-04-26 06:47] LABS: % Basophils 0.5 % (0-2); % Eosinophils 1.6 % (0-6); % Immature Granulocytes 0.5 % (0-0.5); % Lymphocytes 25.5 % (20.5-51.1); % Monocytes 8.4 % (1.7-9.3); % Neutrophils 63.5 % (42.2-75.2); Absolute Eosinophils 0.1 10^3/uL (0-0.7); Absolute Lymphocytes 1.1 10^3/uL (1.2-3.4); Absolute Monocytes 0.4 10^3/uL (0.1-0.6); Absolute Neutrophils 2.8 10^3/uL (1.4-6.5); Hematocrit 30.7 % (39.0-52.0); Hemoglobin 10.6 g/dL (13.0-18.0); Mean Corp Hgb Conc. 34.5 g/dL (33.0-37.0); Mean Corpuscular Hgb 32.9 pg (27.0-31.0); Mean Corpuscular Volume 95.3 fL (80.0-94.0); Mean Platelet Volume 9.4 fL (7.4-10.4); Nucleated Red Blood Cells % 0 % (-); Platelet Count 157 10^3/uL (130-400); Red Blood Cell Count 3.22 10^6/uL (4.70-6.10); Red Cell Dist. Width 16.3 % (11.5-14.5); White Blood Cell Count 4.4 10^3/uL (4.8-10.8)
[2024-04-26 07:39] VITALS: BP 152/80
[2024-04-26 07:47] LABS: Blood Urea Nitrogen 32 mg/dl (9-20); Calcium 9.7 mg/dl (8.4-10.2); Carbon Dioxide 30 mmol/L (22-30); Chloride 103 mmol/L (98-107); Estimated Creatinine Clearance 55 ml/min; Glucose 92 mg/dl (70-99); Sodium 134 mmol/L (135-145); eGFR > 60.00
[2024-04-26] MEDS: LIDOCAINE 4% PATCH 2 PATCH TOPICAL (08:08)
[2024-04-26] MEDS: REFRESH CELLUVISC GEL 1 DROPS BOTH EYES ×2 (08:09→21:08)
[2024-04-26] MEDS: MIRALAX 17 GRAMS PO ×2 (08:09→21:07)
[2024-04-26] MEDS: VIBRAMYCIN 100 MG PO ×2 (08:09→21:09)
[2024-04-26] MEDS: PROTONIX 20 MG PO (08:09)
[2024-04-26] MEDS: ELIQUIS 10 MG PO ×2 (08:10→21:07)
[2024-04-26] MEDS: PROSCAR 5 MG PO (08:10)
[2024-04-26] MEDS: OSCAL 500 + D 500 MG PO (08:10)
[2024-04-26] MEDS: LASIX 40 MG PO (08:11)
[2024-04-26] MEDS: SENOKOT-S 2 TABLET PO ×2 (08:11→21:07)
--- NOTE | 2024-04-26 08:12 | W.PN.CD ---
Today's Communication / Plan
-
Continue meds
We will sign off please call with questions/concerns.
He should have f/u with Dr Monzon in ~ 2 weeks.
Impression / Plan
-
IMPRESSION/PLAN: 83M [place] with HFpEF, CAD (PCI mid LAD 2012, diffuse nonobstructive CAD), HTN, HLD, chronic dyspnea, developmental delay with speech impediment and congenital left sided weakness presented with fever and SOB
HFpEF - acute.
- EF normal on echo 2021.
- Dry weight 63-64 kg. Suspect he is euvolemic. Now on PO Lasix
- TTE below
ESBL bacteremia, source unknown
- ID following on antibiotics.
- TTE below
DVT
- single agent AC without antiplatelet
- if oral AC stopped then would resume aspirin at that point
CAD - prior LAD PCI 2012.
- denies angina.
- continue medical therapy (DAPT & statin, no BB due to bradycardia)
Non-ischemic myocardial injury - acute in the setting of new acute HFpEF and acute illness
- Peak trop 0.104.
- continue medical mgmt.
HTN - stable on medical therapy.
HLD - on Lipitor with LDL (77 04/2023), continue
SUBJECTIVE:
Patient difficult to understand due to speech impediment. No pain. Breathing remains 'good'.
Echo April 2024: CONCLUSIONS
Normal biventricular size and systolic function without regional wall motion
abnormality.
Mild concentric left ventricular hypertrophy.
Aortic root (4.0 cm) and the ascending aorta (4.2 cm) dilatation.
No significant valvular disease.
Compared to the prior study of 06/19/2021 aorta is now dilated.
Physical Exam
Vital Signs/Labs
Vital Signs
Temp Pulse Resp BP Pulse Ox
97.9 F 60 20 152/80 95
04/26/24 07:39 04/26/24 07:39 04/26/24 07:39 04/26/24 07:39 04/26/24 07:39
04/25/24 04/26/24 04/27/24
06:59 06:59 06:59
Actual Weight 138 lb 7.205 oz 142 lb
04/26/24 06:07
04/26/24 06:07
APTT 85.0 Sec (23.4-35.0) H 04/26/24 06:07
Magnesium 1.8 mg/dl (1.6-2.3) 04/23/24 08:14
Triglycerides 110 mg/dl (10-149) 04/23/24 08:14
LDL Cholesterol, Calc 63 mg/dl 04/23/24 08:14
VLDL Cholesterol, Calc 22 mg/dl (0-30) 04/23/24 08:14
HDL Cholesterol 19 mg/dl 04/23/24 08:14
Free T4 0.96 ng/dl (0.78-2.19) 04/23/24 08:14
Physical Exam
Constitutional: No acute distress
EENT: Anicteric
Cardiovascular: Rhythm & rate is regular and Pedal edema is absent
Respiratory: Respiratory effort normal
GI: Soft
Neuro/Psych: Alert and Oriented
Data Reviewed
-
Date of Service: April 26, 2024
EKG: Tracing Personally Visualized and interpreted (sr)
Echo: Report Reviewed by me
Labs: Labs Reviewed by me
[2024-04-26] MEDS: SODIUM CHLORIDE 1 GRAM PO ×2 (08:16→21:07)
[2024-04-26] MEDS: VITAMIN B-6 100 MG PO (08:16)
[2024-04-26] MEDS: CYMBALTA DELAYED RELEASE 20 MG PO (08:16)
--- NOTE | 2024-04-26 09:03 | PN.CDI ---
CDI
- -
CDI:
Physician Documentation Request
Admit Date: 04/22/24 13:35
Dear Doctor Zane,
Patient admitted with acute diastolic CHF.
3/2 Nursing skin assessment, 'Stage 2 sacral pressure injury, POA.'
Physician documentation of the type and location of wounds is required for compliant documentation. Based on the above clinical findings and your assessment, please provide the following in your progress note:
Type (etiology) of ulcer/wound:
- Pressure (decubitus) ulcer
- Other
- Unable to determine
For a pressure ulcer, please also include the stage* of the ulcer:
- Stage 1 - Skin intact, non-blanchable redness
- Stage 2 - Partial thickness loss of dermis, includes intact or open blister
- Stage 3 - Full thickness tissue not including bone, tendon or muscle
- Stage 4 - Full thickness tissue loss, including exposed bone, tendon or muscle
- Unstageable - Full thickness loss in which the base of the ulcer is covered by slough (yellow, newby, pritchard, green or brown) and/or eschar (newby, brown or black) in the wound bed.
- Unable to determine
Use of terms such as suspected, likely, concern for, or probable (associated with a specific diagnosis that is being evaluated, monitored, or treated as if it exists) are acceptable and can be coded in the inpatient setting, when documented at the
time of discharge.
Thank you,
Odilia ALEJANDRE,RN,CCDS
CDI Specialist
Available via [employer] text
Please use your independent medical judgment in providing your response.
*Source: National Pressure Ulcer Advisory Panel (NPUAP)
[2024-04-26 11:21] VITALS: BP 119/64
--- NOTE | 2024-04-26 11:48 | W.PN.HOSP.TC ---
Today's Communication/Plan
-
Continue meropenem
Obtain urinalysis
Aspiration precautions
Eliquis 10 mg BID through 04/30
Eliquis 5 mg BID 05/01 onward
Assessment / Plan
Assessment / Plan
#ESBL E. coli bacteremia
#Suspected aspiration pneumonia
-Suspicion for aspiration pneumonia; cannot completely rule out bowel or etiology
-Does have infiltrate seen on x-ray, 2/2 blood cultures returned positive for ESBL
-Initially on ceftriaxone which was escalated to meropenem after culture result
-Has remained hemodynamically stable, no SIRS, nontoxic-appearing
-Continue IV meropenem and consider repeat blood cultures
-Trend CBC and temperature curve, monitor respiratory status
-Speech and swallow evaluation ordered
-ID following
#Acute HFpEF
-Last echocardiogram in 2021 with normal LVEF; repeat TTE 04/25 pending
-Does have history of CAD so cannot rule out ischemic etiology at this time
-Status post IV diuresis and was transition to oral diuretics today (04/25)
-Follow-up echocardiogram, titrate GDMT appropriately
-Continue on telemetry
#Acute DVT
-Ultrasound on 04/23/2024 showed DVT in the right profunda femoris vein
-Was started on heparin drip upon arrival, no signs of PE or other complication
-Status post heparin drip and now started on loading dose Eliquis morning 04/26
-Plan for Eliquis 10 mg twice daily starting 04/26 through 04/30
-De-escalate to Eliquis 5 mg twice daily on 05/01, indefinitely
#CAD s/p LAD PCI (2012)
#Nonischemic myocardial injury
-Not associated with any systolic dysfunction
-Home regimen includes DAPT, high intensity statin
-Per cardiology, will stop DAPT when on DOAC due to distant PCI
-NIMI here secondary to CHF decompensation
#COPD
-Noted per history, home medications include DuoNebs and albuterol MDI
-No known recent decompensations nor history of intubation
-Does not appear to be in COPD exacerbation at this time
-No known history of significant pulmonary hypertension
#Chronic hyponatremia
-Suspect euvolemia, home regimen includes NaCl tablets twice daily and 40 oz H2O restriction
-Most recent BMP with sodium levels WNL
-Trend BMP
#GERD
-Home regimen includes low-dose PPI daily
-No known history of Pressley's esophagus or erosive disease
#H/O CVA
-Unclear etiology, no known history of AF/AFL or high-grade cerebrovascular lesions
-Home regimen includes high intensity statin, DAPT
-DAPT to be transition to DOAC
#Stage 2 sacral pressure injury, POA
DVT prophylaxis: Heparin drip -> Eliquis
Diet: Cholesterol-lowering, 40 ounce fluid restriction
CODE STATUS: DNR
Anticipated Discharge: 24 - 48 hours
Subjective/Interval History
-
Date of Service: April 26, 2024
Seen and examined at the bedside. No acute events reported overnight. AFVSS as of this morning.
Transition heparin drip/DAPT to DOAC alone at cardiology's recommendation due to distant nature of LAD stent
Denies dyspnea, cough, chest pain, fevers or chills. He denies any new complaints this morning.
Objective Data
-
Labs:
Laboratory Results
04/26/24
06:07
WBC 4.4 L
Hgb 10.6 L
Hct 30.7 L
Plt Count 157
APTT 85.0 H
Sodium 134 L
Potassium 4.0
Chloride 103
Carbon Dioxide 30
BUN 32 H
Creatinine 0.9
Glucose 92
Calcium 9.7
Vital Signs:
Vital Signs
Temp Pulse Resp BP Pulse Ox
97.3 F 62 16 119/64 95
04/26/24 11:21 04/26/24 11:21 04/26/24 11:21 04/26/24 11:21 04/26/24 11:21
I&O
04/25/24 04/26/24 04/27/24
06:59 06:59 06:59
Intake Total 360 / 360 1140 / 1140 240 / 240
Balance 360 / 360 1140 / 1140 240 / 240
Review of Systems
-
History Source: Patient
All other systems: Reviewed and negative
Physical Exam
-
General: Well Developed, No Apparent Distress and Comfortable
HEENT: Normocephalic, Atraumatic, Moist Mucous Membranes and Hearing Impaired
Respiratory: Clear to Auscultation and Non Labored Respirations; Negative Wheezes, Rales or Rhonchi
Cardiac: Regular Rhythm and S1/S2; Negative Murmur, Rub or Gallop
GI: Soft, Nontender, Nondistended and Normal Bowel Sounds
Musculoskeletal: No Clubbing, No Cyanosis and No Edema
Skin: Warm, Dry and Normal Turgor; Negative Rash
Neuro: AO x 3, Nonfocal/Grossly Intact and Central Nerve's Intact; Negative Tremors
Psych: Calm
Data Reviewed
-
Labs: Labs Reviewed by me and Discussed with Patient
--- NOTE | 2024-04-26 14:51 | W.PN.ID1 ---
Date of Service
Date of Service: April 26, 2024
Today's Communication
Transition to ertapenem.
Assessment / Plan
E. coli bacteremia
- source unclear ?lung ?urine ?bowel. Given significant infiltrates suspect lung.
Normal white count with left shift
Fever
CAD
Dyslipidemia
Hx CVA
Dementia
Depression
Congenital hearing loss
Recommendations:
Transition to ertapenem, to continue antibiotics through 05/05/2024.
Prescription given to case management.
Continue with supportive measures.
Chief Complaint
-: Bacteremia
Subjective / Review of Systems
Review of Systems: No Fever
Vital Signs / Physical Exam
Vital Signs
Vital Signs
Temp Pulse Resp BP Pulse Ox
97.3 F 62 16 119/64 95
04/26/24 11:21 04/26/24 11:21 04/26/24 11:21 04/26/24 11:21 04/26/24 11:21
Physical Exam
Constitutional: No Acute Distress, Comfortable, Chronically Ill and Non-toxic
Cardiovascular: S1/S2; Negative S3/S4
Pulmonary: Coarse and Non Labored
Gastrointestinal: Soft and Non Tender
Skin: Negative Rash or Jaundice
Neurological: Awake and Alert
Objective Data
Lab Data
Lab Results
04/26/24 06:07
04/26/24 06:07
APTT 85.0 Sec (23.4-35.0) H 04/26/24 06:07
Estimated Creat Clear 55 ml/min 04/26/24 06:07
Total Bilirubin 0.4 mg/dl (0.2-1.3) 04/22/24 11:04
AST 32 U/L (17-59) 04/22/24 11:04
ALT 35 U/L (0-50) 04/22/24 11:04
Alkaline Phosphatase 102 U/L (38-126) 04/22/24 11:04
Most recent labs reviewed.
Micro Results:
04/22/24 14:02 Blood Culture - Final
Blood/Venous Escherichia coli - ESBL
Gram Stain - Final
04/22/24 14:07 Blood Culture - Final
Blood/Venous Escherichia coli - ESBL
Gram Stain - Final
04/22/24 11:06 Influenza Types A & B (MICHELA) - Final
Nasal Swab Negative for Influenza A & B, NAAT
Negative results must be combined with clinical observations
and patient history.
Nucleic Acid Amplification test (NAAT)performed on the
[employer] platform.
Imaging:
04/22/2024 CXR (portable): Diffusely increased interstitial markings bilaterally, mild bibasilar opacities, which appear improved compared to the prior study. No pleural effusion. No pneumothorax.
--- NOTE | 2024-04-26 15:21 | CM ---
Addendum entered by Lindsay Marquez 04/26/24 15:34:
Pending PT/OT assessment.
Original Note:
Patient sister talked to CM and indicated that she understood patient was for discharge to snf today. Patient for IV antibiotics until 05/05/24. CM will work on authorization to return to SNF tomorrow per physician. CM will continue to follow for
discharge planning needs.
Plan; return to SNF [facility]
please call report to [facility] [phone] unit a-2.
[2024-04-26 15:22] VITALS: BP 123/65
--- NOTE | 2024-04-26 16:11 | CM ---
[employer] auth initiated on [employer]
Ref# [id number]
Clinicals including abx rx faxed to [phone]
Auth pending for SNF return to [facility]
[2024-04-26] MEDS: INVANZ 60 MG IV (16:13)
[2024-04-26] MEDS: MILK OF MAGNESIA 30 ML PO (17:02)
[2024-04-26] MEDS: LIPITOR 40 MG PO (17:02)
[2024-04-26 19:00] VITALS: BP 138/83
[2024-04-26] MEDS: DEBROX EAR DROPS 1 DROP BOTH EARS (21:08)
[2024-04-26] MEDS: FLOMAX 0.4 MG PO (21:08)
[2024-04-26] MEDS: ROBITUSSIN 100 MG PO (22:38)
[2024-04-26] MEDS: DUONEB 3 ML INH (22:53)
[2024-04-26 23:00] VITALS: BP 105/62
[2024-04-27 03:00] VITALS: BP 123/66
[2024-04-27 05:53] VITALS: BMI 20.5
[2024-04-27 06:51] LABS: Hematocrit 30.6 % (39.0-52.0); Hemoglobin 10.4 g/dL (13.0-18.0); Mean Corpuscular Hgb 33.1 pg (27.0-31.0); Mean Corpuscular Volume 97.5 fL (80.0-94.0); Mean Platelet Volume 9.2 fL (7.4-10.4); Platelet Count 170 10^3/uL (130-400); Red Blood Cell Count 3.14 10^6/uL (4.70-6.10); Red Cell Dist. Width 16.5 % (11.5-14.5); White Blood Cell Count 5.6 10^3/uL (4.8-10.8)
[2024-04-27 07:13] VITALS: BP 129/72
[2024-04-27] MEDS: DUONEB 3 ML INH (07:49)
[2024-04-27] MEDS: PROTONIX 20 MG PO (08:32)
[2024-04-27] MEDS: VITAMIN B-6 100 MG PO (08:32)
[2024-04-27] MEDS: CYMBALTA DELAYED RELEASE 20 MG PO (08:32)
[2024-04-27] MEDS: SODIUM CHLORIDE 1 GRAM PO (08:32)
[2024-04-27] MEDS: MIRALAX 17 GRAMS PO (08:32)
[2024-04-27] MEDS: VIBRAMYCIN 100 MG PO (08:32)
[2024-04-27] MEDS: LIDOCAINE 4% PATCH 2 PATCH TOPICAL (08:32)
[2024-04-27] MEDS: ELIQUIS 10 MG PO (08:33)
[2024-04-27] MEDS: OSCAL 500 + D 500 MG PO (08:33)
[2024-04-27] MEDS: PROSCAR 5 MG PO (08:33)
[2024-04-27] MEDS: SENOKOT-S 2 TABLET PO (08:33)
[2024-04-27] MEDS: LASIX 40 MG PO (08:33)
[2024-04-27] MEDS: REFRESH CELLUVISC GEL 1 DROPS BOTH EYES (08:33)
--- NOTE | 2024-04-27 09:49 | CM ---
Patient for transfer to SNF. CM completed transportation forms and faxed to unit. CM will call to patient sister and send IMM to sister. CM will continue to follow for discharge planning needs.
Plan; return to SNF [facility]
please call report to [facility] [phone] unit a-2.
--- NOTE | 2024-04-27 10:59 | W.PN.HOSP.TC ---
Addendum entered and electronically signed by Rowdy Degroot DO 04/29/24 15:49:
CDI: Aspiration pneumonia is valid
Original Note:
Today's Communication/Plan
-
Continue Eliquis with de-escalation of 5 mg twice daily on 05/02
Continue with ertapenem 1 g via midline through 05/05/2024
Continue Lasix 40 mg daily
BMP and CBC in 1 week
Discharge to SNF
Assessment / Plan
Assessment / Plan
#ESBL E. coli bacteremia
#Suspected aspiration pneumonia
-Suspicion for aspiration pneumonia; cannot completely rule out bowel or etiology
-Does have infiltrate seen on x-ray, 2/2 blood cultures returned positive for ESBL
-Initially on ceftriaxone which was escalated to meropenem after culture result
-Has remained hemodynamically stable, no SIRS, nontoxic-appearing
-Continue IV meropenem and consider repeat blood cultures
-Trend CBC and temperature curve, monitor respiratory status
-ID following, recommended ertapenem 1 g daily through 05/05/2024
-IV team consulted for midline prior to DC on 04/27
#Acute HFpEF
-Last echocardiogram in 2021 with normal LVEF; repeat TTE 04/25 pending
-Does have history of CAD so cannot rule out ischemic etiology at this time
-Status post IV diuresis and was transition to oral diuretics today (04/25)
-Echocardiogram with preserved biventricular function
-Continue on telemetry
#Acute DVT
-Ultrasound on 04/23/2024 showed DVT in the right profunda femoris vein
-Was started on heparin drip upon arrival, no signs of PE or other complication
-Status post heparin drip and now started on loading dose Eliquis morning 04/26
-Plan for Eliquis 10 mg twice daily starting 04/26 through 05/01
-De-escalate to Eliquis 5 mg twice daily on 05/02, indefinitely
#CAD s/p LAD PCI (2012)
#Nonischemic myocardial injury
-Not associated with any systolic dysfunction
-Home regimen includes DAPT, high intensity statin
-Per cardiology, will stop DAPT when on DOAC due to distant PCI
-NIMI here secondary to CHF decompensation
#COPD
-Noted per history, home medications include DuoNebs and albuterol MDI
-No known recent decompensations nor history of intubation
-Does not appear to be in COPD exacerbation at this time
-No known history of significant pulmonary hypertension
#Chronic hyponatremia
-Suspect euvolemia, home regimen includes NaCl tablets twice daily and 40 oz H2O restriction
-Most recent BMP with sodium levels WNL
-Trend BMP
#GERD
-Home regimen includes low-dose PPI daily
-No known history of Pressley's esophagus or erosive disease
#H/O CVA
-Unclear etiology, no known history of AF/AFL or high-grade cerebrovascular lesions
-Home regimen includes high intensity statin, DAPT
-DAPT to be transition to DOAC
#Stage 2 sacral pressure injury, POA
DVT prophylaxis: Heparin drip -> Eliquis
Diet: Cholesterol-lowering, 40 ounce fluid restriction
CODE STATUS: DNR
Anticipated Discharge: Today
Subjective/Interval History
-
Date of Service: April 27, 2024
Seen and examined at the bedside. No acute events reported overnight. AFVSS this morning
ID recommending ertapenem 1 g daily through the end of 05/05. IV line consulted for midline
Denies any new complaints as of this morning.
Objective Data
-
Labs:
Laboratory Results
04/27/24
06:15
WBC 5.6
Hgb 10.4 L
Hct 30.6 L
Plt Count 170
Vital Signs:
Vital Signs
Temp Pulse Resp BP Pulse Ox
97.8 F 62 16 129/72 94
03/05/25 07:13 04/27/24 07:13 04/27/24 07:51 04/27/24 07:13 04/27/24 07:51
I&O
04/26/24 04/27/24 04/28/24
06:59 06:59 06:59
Intake Total 1140 / 1140 940 / 940
Balance 1140 / 1140 940 / 940
Review of Systems
-
History Source: Patient
All other systems: Reviewed and negative
Physical Exam
-
General: Well Developed, No Apparent Distress and Comfortable
HEENT: Normocephalic, Atraumatic, Moist Mucous Membranes and Hearing Impaired
Respiratory: Clear to Auscultation and Non Labored Respirations
Cardiac: Regular Rhythm and S1/S2; Negative Murmur, Rub or Gallop
GI: Soft, Nontender, Nondistended and Normal Bowel Sounds
Musculoskeletal: No Clubbing, No Cyanosis and No Edema
Skin: Warm, Dry and Normal Turgor; Negative Rash
Neuro: Awake, Alert, Oriented and Nonfocal/Grossly Intact
Psych: Calm
Data Reviewed
-
Labs: Labs Reviewed by me, Discussed with Physician (Instrumentation And Control Technician) and Discussed with Patient
[2024-04-27 11:27] VITALS: BP 123/66
--- NOTE | 2024-04-27 11:51 | W.PN.ID1 ---
Date of Service
Date of Service: April 27, 2024
Today's Communication
Continue abx.
Assessment / Plan
E. coli bacteremia
- source unclear ?lung ?urine ?bowel. Given significant infiltrates, suspect lung.
Normal white count with left shift
Fever
CAD
Dyslipidemia
Hx CVA
Dementia
Depression
Congenital hearing loss
Recommendations:
Continue ertapenem through 05/05/2024.
Prescription sheet given to case management.
Continue with supportive measures.
Aspiration precautions
Follow BMP / CBC
Chief Complaint
-: Bacteremia
Subjective / Review of Systems
Review of Systems: No Fever
Vital Signs / Physical Exam
Vital Signs
Vital Signs
Temp Pulse Resp BP Pulse Ox
98.6 F 66 16 123/66 95
04/27/24 11:27 04/27/24 11:27 04/27/24 11:27 04/27/24 11:27 04/27/24 11:27
Physical Exam
Constitutional: No Acute Distress, Comfortable, Chronically Ill and Non-toxic
Cardiovascular: S1/S2; Negative S3/S4
Pulmonary: Coarse and Non Labored
Gastrointestinal: Soft, Non Tender and Non Distended
Skin: Negative Rash or Jaundice
Neurological: Awake and Alert
Objective Data
Lab Data
Lab Results
04/27/24 06:15
04/26/24 06:07
APTT 85.0 Sec (23.4-35.0) H 04/26/24 06:07
Estimated Creat Clear 55 ml/min 04/26/24 06:07
Total Bilirubin 0.4 mg/dl (0.2-1.3) 04/22/24 11:04
AST 32 U/L (17-59) 04/22/24 11:04
ALT 35 U/L (0-50) 04/22/24 11:04
Alkaline Phosphatase 102 U/L (38-126) 04/22/24 11:04
Most recent labs reviewed.
Micro Results:
04/22/24 14:02 Blood Culture - Final
Blood/Venous Escherichia coli - ESBL
Gram Stain - Final
04/22/24 14:07 Blood Culture - Final
Blood/Venous Escherichia coli - ESBL
Gram Stain - Final
04/22/24 11:06 Influenza Types A & B (MICHELA) - Final
Nasal Swab Negative for Influenza A & B, NAAT
Negative results must be combined with clinical observations
and patient history.
Nucleic Acid Amplification test (NAAT)performed on the
[employer] platform.
Imaging:
04/22/2024 CXR (portable): Diffusely increased interstitial markings bilaterally, mild bibasilar opacities, which appear improved compared to the prior study. No pleural effusion. No pneumothorax.
--- NOTE | 2024-04-27 14:19 | VATNOTE ---
3/5 LEFT SL 4FR MIDLINE placed under sterile technique for antibotics. Patient tolerated. TCL 16cm ECL0 UAC 23.5. Pressure dressing applied, redress tomorrow.
--- NOTE | 2024-04-27 14:29 | W.DCSUMMARY ---
Discharge Summary
Discharge Data
Date of Admission: 04/22/24
Date of Discharge: 04/27/24
Total time spent discharging patient (in min): 36
-
Pending Results: No
Hospital Course
Discharging Physician : Rowdy Degroot DO
Disposition : SNF
Principal Discharge diagnosis :
ESBL bacteremia due to community-acquired pneumonia
Decompensated HFpEF, acute
Acute DVT of RLE
Chronic Discharge diagnosis :
CAD s/p LAD PCI (2012)
COPD
Chronic hyponatremia
Hypertension with hypertensive heart disease
HLD
GERD
Gout
H/O CVA
Hospital Course : 83-year-old male that presented to the hospital with shortness of breath on 04/22/2024. Had elevated BNP and signs of pulmonary congestion concerning for new onset congestive heart failure. Also had borderline fever however no
evidence of bacterial infection noted and viral respiratory panel was negative. Was treated with IV Lasix for decompensated heart failure.. Was evaluated by cardiology in the hospital. Repeat echocardiogram showed normal biventricular function,
no significant valvular abnormalities or signs of significant pulmonary hypertension. Was ultimately transition to oral diuretics prior to discharge.
Due to initial fever of 100.4 �F cultures were taken upon admission and he was ultimately found to grow ESBL E. coli in both sets of blood cultures. Was evaluated by infectious disease who initiated patient on meropenem which was de-escalated to
ertapenem prior to discharge. Source of ESBL likely due to community-acquired pneumonia as he did have pulmonary infiltrates on imaging here. Prior to discharge was transition to ertapenem 1 g to complete IV course via midline through 05/05/2024.
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 He was initiated on anticoagulation with heparin drip. Cardiology recommended discontinuing dual antiplatelet therapy
for previous LAD stent as it was distant timewise. Recommended DOAC for anticoagulant without antiplatelet agents. Was transition to 10 mg Eliquis twice daily to complete 7 days prior to de-escalating to 5 mg twice daily.
Consultants:
Cardiology -- Nikos German MD
Infectious disease -- Mario Singer MD
Important imaging findings :
US Periph Venous RLE (04/23/24)
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 Normal flow is demonstrated in the posterior tibial, popliteal,
superficial femoral and common femoral veins. These vessels are normally compressible and demonstrate normal flow augmentation with compression.
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
TTE (04/25/24)
Normal biventricular size and systolic function without regional wall motion abnormality.
Mild concentric left ventricular hypertrophy.
Aortic root (4.0 cm) and the ascending aorta (4.2 cm) dilatation.
No significant valvular disease.
Compared to the prior study of 06/19/2021 aorta is now dilated.
Procedure findings : N/A
Follow-up: Follow-up in office with cardiology and PCP after discharge.
Discharge Plan
-
Patient Disposition: Group Home/SNF
Discharge Diagnosis/Procedures: ESBL bacteremia
Community-acquired pneumonia
Acute on chronic HFpEF
Acute DVT of femoris profundus
History of CAD s/p PCI
Condition: Fair
Diet: No added salt
Activity: As tolerated
Driving Restrictions: No driving
Bathing Restrictions: None
Blood Work: BMP and CBC 1 week after discharge from the hospital
Others Tests: None
Other Services: PT and OT
Specialty Instructions: Weigh Daily- Call MD for wt gain/loss 3 lbs overnight/5 lbs in 1 week
Activity Restrictions/Additional Instructions:
After discharge from the hospital patient should have a follow-up appointment with family doctor. Should be seen in the office within 1 to 2 weeks of discharge
Patient should follow-up with medicine technologist after discharge from the hospital.
Instructions: *PCP/Other Gaming [employer]er Heart Failure Instructions
Referrals:
Stew Pisano DO [Family Provider] -
Additional Discharge Medication Instructions: Continue ertapenem 1 g IV daily via midline through the end of 05/05/2024
Continue Eliquis 10 mg twice daily through the end of 05/01. On 05/02 begin 5 mg twice daily dosing
Continue Lasix 40 mg daily
Discontinued aspirin and Plavix
Prescriptions:
New
Eliquis 5 mg Tablet
10 mg PO BID 4 Days Qty: 16 0RF
Eliquis 5 mg Tablet
5 mg PO BID 30 Days Qty: 60 0RF
furosemide 40 mg Tablet
40 mg PO DAILY 30 Days Qty: 30 0RF
Ertapenem [Invanz] 1000 MG
0.9% Sodium Chloride [Nss] 50 ML
120 mls/hr IV Q24H
Reason for use: Infection
Ordered By: Rowdy Degroot DO
Last Taken: 04/26/24 16:13 60 mls
Continued
atorvastatin [Lipitor] 40 mg Tablet
40 mg PO QPM
acetaminophen [Tylenol] 325 mg Tablet
650 mg PO Q4HPRN PRN (Reason: mild pain/fever>100.4)
ipratropium-albuterol 0.5 mg-3 mg(2.5 mg base)/3 mL Solution For Nebulization
3 ml INHALATION R TIDPRN PRN (Reason: sob)
lidocaine 4 % Adhesive Patch,Medicated
2 patch TOPICAL DAILY
Rx Instructions:
left side anterior rib cage and left side mid posterior rib cage
omeprazole 10 mg Capsule,Delayed Release(Dr/Ec)
10 mg PO DAILY
magnesium hydroxide [Milk of Magnesia] 400 mg/5 mL Suspension
2,400 mg PO HSPRN PRN (Reason: constipation)
tamsulosin [Flomax] 0.4 mg Capsule
0.4 mg PO HS
bisacodyl [Dulcolax (bisacodyl)] 10 mg Suppository
10 mg CA DAILYPRN PRN (Reason: if no bm after mom)
pyridoxine (vitamin B6) 100 mg Tablet
100 mg PO DAILY
albuterol sulfate 90 mcg/actuation Hfa Aerosol Inhaler
2 puff INHALATION R Q6HPRN PRN (Reason: sob)
ipratropium bromide 21 mcg (0.03 %) [place],Non-Aerosol
2 spray INTRANASAL BID
finasteride 5 mg Tablet
5 mg PO DAILY
Saline Nasal 0.65 % Aerosol,[place]
1 spray INTRANASAL QIDPRN PRN (Reason: dryness)
duloxetine [Cymbalta] 20 mg Capsule,Delayed Release(Dr/Ec)
20 mg PO DAILY
lactulose 10 gram/15 mL Solution
10 g PO DAILYPRN PRN (Reason: constipation )
calcium carbonate-vitamin D3 [Calcium 500 + D] 500 mg-10 mcg (400 unit) Tablet
1 tab PO DAILY
Refresh Optive 0.5-0.9 % Drops
1 drp BOTH EYES BID
polyethylene glycol 3350 17 gram Powder In Packet
17 g PO BID Qty: 0 0RF
sennosides-docusate sodium 8.6-50 mg Tablet
2 tab PO BID Qty: 0 0RF
Debrox 6.5 % Drops
3 drp EACH EAR HS
Rx Instructions:
x 7 days
sodium chloride 1,000 mg Tablet,Soluble
1,000 mg PO BID
lubiprostone 8 mcg capsule
8 mcg PO DAILY@0630
Discontinued
clopidogrel [Plavix] 75 mg Tablet
75 mg PO DAILY
aspirin 81 mg Tablet,Chewable
81 mg PO DAILY
Discharge Orders:
Discharge Patient (As Directed); Ordered 04/27/24
Ordered By: Rowdy Degroot
Discharge Date and Time
Print Language: INDIAN
[2024-04-27 14:47] VITALS: BP 124/69
--- NOTE | 2024-04-28 09:16 | W.HF.CON ---
Heart Failure
- LV Function
Left ventricular function study result: LV Ejection fraction >/= 50%
Ejection Fraction Percentage: 55-60
- ARNI
Patient already on ARNI: No
Heart Failure ARNI Not Indicated: LV Ejection Fraction >/= 40%
- ACEI/ARB
Patient already on ACEI/ARB: No
Heart Failure ACEI/ARB Not Indicated: LV Ejection Fraction > 40%
- Beta Yvonne
Patient already on Evidence Based Beta Yvonne: No
Heart Failure Evidence Based Beta Yvonne Not Indicated: LV Ejection Fraction > 40%
- Mineralocorticord Receptor Antagonist
Patient already on MRA: No
Heart Failure MRA Not Indicated: LV Ejection Fraction > 40%
- SGLT-2 Inhibitor
Patient already on SGLT-2 Inhibitor: No
Heart Failure SGLT-2 Inhibitor Not Indicated: LV Ejection Fraction >40%
- NYHA CHF Classification
NYHA CHF Classification Level: Class III - Symptoms w/ min exertion, interferes w/ nml daily activity (aspiration PNA)
- ACC/AHA Stage
ACC/AHA Stage: Stage C: Symptomatic Heart Failure
--- NOTE | 2024-04-29 10:31 | PN.CDI ---
CDI
- -
CDI:
Physician Documentation Request
Admit Date: 04/22/24 13:35
Dear Doctor Zane,
Patient admitted with acute diastolic CHF.
04/27 PN, 'Suspected aspiration pneumonia...Suspicion for aspiration pneumonia....Does have infiltrate seen on x-ray....ID following, recommended ertapenem 1 g daily through 05/05/2024.'
Please provide in your note the following:
Aspiration pneumonia is a valid diagnosis for this patient
Aspiration pneumonia is not a valid diagnosis for this patient
Other
Use of terms such as suspected, likely, concern for, or probable (associated with a specific diagnosis that is being evaluated, monitored, or treated as if it exists) are acceptable and can be coded in the inpatient setting, when documented at the
time of discharge.
Thank you,
Odilia ALEJANDRE,RN,CCDS
CDI Specialist
Available via tiger text
Please use your independent medical judgment in providing your response.
== END 2024-04-27 16:35 | DRG 177 ==
LOC: 3 WEST ACU 13:35
PROVIDERS: Hospitalist; Registered Nurse; ADMITTING PHYSICIAN Internal Medicine; ATTENDING PHYSICIAN Internal Medicine; CONSULT PHYSICIAN Internal Medicine Infectious Disease; CONSULT PHYSICIAN Student in an Organized Health Care Education/Training Program; EMERGENCY PHYSICIAN Emergency Medicine; FAMILY PHYSICIAN Student in an Organized Health Care Education/Training Program
DX: J69.0 Pneumonitis due to inhalation of food and vomit (principal); I50.33 Acute on chronic diastolic (congestive) heart failure; E87.1 Hypo-osmolality and hyponatremia; I5A Non-ischemic myocardial injury (non-traumatic); R78.81 Bacteremia; J44.0 Chronic obstructive pulmonary disease with (acute) lower respiratory infection; I82.411 Acute embolism and thrombosis of right femoral vein; J18.9 Pneumonia, unspecified organism; J10.00 Influenza due to other identified influenza virus with unspecified type of pneumonia; Z66 Do not resuscitate; I25.10 Atherosclerotic heart disease of native coronary artery without angina pectoris; F32.A Depression, unspecified; K21.9 Gastro-esophageal reflux disease without esophagitis; N40.0 Benign prostatic hyperplasia without lower urinary tract symptoms; E78.00 Pure hypercholesterolemia, unspecified; L89.152 Pressure ulcer of sacral region, stage 2; I11.0 Hypertensive heart disease with heart failure; Z86.73 Personal history of transient ischemic attack (TIA), and cerebral infarction without residual deficits; Z79.82 Long term (current) use of aspirin; Z11.52 Encounter for screening for COVID-19; M10.9 Gout, unspecified; D64.9 Anemia, unspecified; D72.819 Decreased white blood cell count, unspecified; H90.5 Unspecified sensorineural hearing loss; Z79.01 Long term (current) use of anticoagulants; Z79.02 Long term (current) use of antithrombotics/antiplatelets; Z79.899 Other long term (current) drug therapy
CPT/HCPCS: 71045; 80048; 80053; 80061; 83735; 84145; 84439; 84443; 84484; 85025; 85027; 85730; 87040; 87149; 87186; 87205; 87502; 87811; 92610; 93005; 93306; 93971; 94640; 96374; 97163; 99285; J1335; J2185

== ENCOUNTER → 2024-05-14 08:39 | Outpatient (REF) | payer OTHER, SELFPAY ==
[2024-05-14 10:05] LABS: Hematocrit 29.5 % (39.0-52.0); Hemoglobin 9.9 g/dL (13.0-18.0); Mean Corp Hgb Conc. 33.6 g/dL (33.0-37.0); Mean Corpuscular Hgb 32.9 pg (27.0-31.0); Mean Platelet Volume 9.5 fL (7.4-10.4); Platelet Count 188 10^3/uL (130-400); Red Blood Cell Count 3.01 10^6/uL (4.70-6.10); Red Cell Dist. Width 16.9 % (11.5-14.5); White Blood Cell Count 5.3 10^3/uL (4.8-10.8)
[2024-05-14 10:24] LABS: ALT (SGPT) 26 U/L (0-50); AST (SGOT) 23 U/L (17-59); Albumin 2.5 g/dl (3.5-5.0); Alkaline Phosphatase 118 U/L (38-126); Blood Urea Nitrogen 24 mg/dl (9-20); Calcium 9.1 mg/dl (8.4-10.2); Carbon Dioxide 26 mmol/L (22-30); Chloride 105 mmol/L (98-107); Glucose 80 mg/dl (70-99); Potassium 4.6 mmol/L (3.5-5.1); Sodium 134 mmol/L (135-145); Total Bilirubin 0.5 mg/dl (0.2-1.3); Total Protein 7.3 g/dl (6.3-8.2); eGFR > 60.00
== END ==
LOC: OLABN 08:39
PROVIDERS: ATTENDING PHYSICIAN Student in an Organized Health Care Education/Training Program
DX: I25.9 Chronic ischemic heart disease, unspecified (principal); J18.9 Pneumonia, unspecified organism
CPT/HCPCS: 36415; 80053; 85027

== ENCOUNTER → 2024-10-28 10:57 | Outpatient (REF) | payer OTHER, SELFPAY ==
[2024-10-28 11:23] LABS: Blood Urea Nitrogen 62 mg/dl (9-20); Calcium 9.4 mg/dl (8.4-10.2); Carbon Dioxide 20 mmol/L (22-30); Chloride 111 mmol/L (98-107); Glucose 69 mg/dl (70-99); Potassium 5.3 mmol/L (3.5-5.1); Sodium 136 mmol/L (135-145); eGFR 15.76
== END ==
LOC: OLABN 10:57
PROVIDERS: ATTENDING PHYSICIAN Student in an Organized Health Care Education/Training Program
DX: E78.5 Hyperlipidemia, unspecified (principal)
CPT/HCPCS: 36415; 80048

== ENCOUNTER → 2024-10-29 13:51 | Outpatient (REF) | payer OTHER, SELFPAY ==
[2024-10-29 14:36] LABS: Blood Urea Nitrogen 59 mg/dl (9-20); Calcium 8.9 mg/dl (8.4-10.2); Carbon Dioxide 22 mmol/L (22-30); Chloride 110 mmol/L (98-107); Glucose 119 mg/dl (70-99); Potassium 5.6 mmol/L (3.5-5.1); Sodium 135 mmol/L (135-145); eGFR 16.30
== END ==
LOC: OLABN 13:51
PROVIDERS: ATTENDING PHYSICIAN Student in an Organized Health Care Education/Training Program
DX: E78.5 Hyperlipidemia, unspecified (principal)
CPT/HCPCS: 80048

== ENCOUNTER 2024-11-01 17:52 | Inpatient (IN) | payer OTHER, SELFPAY ==
[2024-11-01] VITALS (22 sets, daily range): BP systolic 122–158; BP diastolic 64–91; PULSE 68–76; BMI 23.7; BMI 23.4
[2024-11-01 13:53] LABS: Hematocrit 20.4 % (39.0-52.0); Hemoglobin 6.7 g/dL (13.0-18.0); Mean Corp Hgb Conc. 32.8 g/dL (33.0-37.0); Mean Corpuscular Volume 102.0 fL (80.0-94.0); Nucleated Red Blood Cells % 0 % (-); Platelet Count 140 10^3/uL (130-400); Red Cell Dist. Width 16.3 % (11.5-14.5)
--- NOTE | 2024-11-01 14:31 | ED.GENMED ---
History of Present Illness
General
Chief Complaint: Abnormal Lab Value
Source: patient
Exam Limitations: none
Time Seen by Provider: 11/01/24 14:24
History of Present Illness
History of Present Illness:
See MDM
Past History
Past History
ED Past Medical History: CAD, Hypercholesterolemia, Psychiatric (depression) and Other (congenital hearing loss, speech impediments, chronic L side weakness)
ED Past Surgical History: Cardiac (stent)
Social History
Tobacco: Non-smoker
Alcohol: None
Living: halfway
Phy Exam
Physical Exam
Physical Exam:
See MDM
Course
Orders/Labs/Results
Orders:
Orders
11/01/24 13:34
EKG [Electrocardiogram (*1)] Urgent
Reason for Study: Fatigue / Weakness
EKG- Treatment ONCE
11/01/24 13:39
Complete Blood Count/With Diff Urgent
Comprehensive Metabolic Panel Urgent
Magnesium Urgent
11/01/24 14:30
Ipratropium/Albuterol Sulfate [Duoneb] 3 ml INH R NOW STA
CR Chest Portable - 1 View Urgent
Comment:
Reason For Exam: cough and wheeze
Reason Study Needs to be Portable: Patient Unstable
11/01/24 14:31
Blood Bank Products [* Blood Bank Products] Urgent
Blood Bank Products: *Packed RBC Leuko(PRBC's)
Quantity: 1
Transfuse Today: Yes
Reason: Bleeding
11/01/24 14:34
Type+Screen Urgent
NT-proBNP Urgent
Troponin I Urgent
11/01/24 14:35
IV Insert/Care/Rem.- Treatment PRN
Pantoprazole 80 mg/100 ml Nss [Protonix] 80 mg in 100 ml IV NOW
Pantoprazole [Protonix IV] 80 mg IV NOW STA
11/01/24 16:11
Furosemide [Lasix] 40 mg IV NOW STA
11/01/24 17:19
GASTROINTESTINAL CONSULT Routine
Consulting Provider: Jarrett Yang
Was physician already notified: Yes
11/01/24 17:22
NEPHROLOGY CONSULT Routine
Consulting Provider: Parvez Sanchez
Was physician already notified: Yes
11/01/24 17:27
Urinalysis Reflex To Culture Routine
Urine Creatinine Routine
Urine Sodium Routine
Abnormal Lab Results
11/01/24
13:39
WBC 3.8 L 10^3/uL
(4.8-10.8)
RBC 2.00 L 10^6/uL
(4.70-6.10)
Hgb 6.7 L* g/dL
(13.0-18.0)
Hct 20.4 L* %
(39.0-52.0)
MCV 102.0 H fL
(80.0-94.0)
MCH 33.5 H pg
(27.0-31.0)
MCHC 32.8 L g/dL
(33.0-37.0)
RDW 16.3 H %
(11.5-14.5)
Absolute Lymphs (auto) 0.8 L 10^3/uL
(1.2-3.4)
Potassium 5.4 H mmol/L
(3.5-5.1)
Chloride 110 H mmol/L
(98-107)
Carbon Dioxide 21 L mmol/L
(22-30)
BUN 60 H mg/dl
(9-20)
Creatinine 3.2 H mg/dL
(0.7-1.3)
Glucose 114 H mg/dl
(70-99)
Total Protein 8.6 H g/dl
(6.3-8.2)
Albumin 3.0 L g/dl
(3.5-5.0)
11/01/24 13:39
11/01/24 13:39
Vital Signs
Initial and Last Documented VS:
Initial Vital Signs
Pulse Resp BP Pulse Ox
62 17 142/78 95
11/01/24 13:37 11/01/24 13:37 11/01/24 13:37 11/01/24 13:37
Last Documented Vital Signs
Temp Pulse Resp BP Pulse Ox
97.6 F 74 17 158/83 93
11/01/24 13:42 11/01/24 16:18 11/01/24 16:18 11/01/24 16:18 11/01/24 16:18
MDM/Problems Addressed
Differential Diagnosis Includes:
Note:
CHIEF COMPLAINT(S)
Elevated creatinine and blood urea nitrogen, anemia.
HISTORY OF PRESENT ILLNESS
The patient is an 84-year-old male who was referred to the emergency department following outpatient laboratory results indicating elevated creatinine and blood urea nitrogen levels. The patient is a poor historian and does not articulate any
specific complaints. He is observed sitting comfortably in bed, showing no apparent distress. The lab work revealed anemia, with a hemoglobin level measured at 6.7, whereas his usual baseline is approximately 9. The clinical impression includes
concerns for possible dehydration and gastrointestinal bleeding, prompting the need for further evaluation.
Rectal exam performed with nurse Xiao at bedside. Stool is brown but guaiac positive. Patient did sign consent for blood transfusion. I also discussed the case with his next of kin, sister Nuvia Thayer who also gave consent
Patient does have a significant expiratory wheeze. He does have edematous legs. Will obtain chest x-ray and BNP with concern for possible pulmonary edema. Patient given duo neb
PHYSICAL EXAM
General: Alert, no acute distress. Sitting in bed smiling
Skin: Warm, dry.
Head: Normocephalic, atraumatic
Neck: Appears supple, trachea midline.
Eyes, Ears, Nose, Mouth, and Throat: Oral mucosa moist.
Cardiovascular: No signs of cyanosis. Regular rate and rhythm
Respiratory: Expiratory wheeze and questionable crackles at bases
Abdomen: Non-distended
Musculoskeletal: +1 pitting edema bilateral lower extremities
Rectal: Brown stool guaiac positive
Neurological: No focal neurological deficit observed.
Psychiatric: Cooperative, appropriate mood and affect.
PROBLEM LIST
Acute:
- Anemia with hemoglobin at 6.7
- Elevated creatinine and blood urea nitrogen levels
PLAN
- Administer intravenous fluids to address potential dehydration.
- Conduct a rectal examination to assess for possible gastrointestinal bleeding contributing to anemia.
DIFFERENTIAL DIAGNOSIS
The Differential Diagnosis includes, in no particular order and is not limited to:
1. Gastrointestinal bleeding
2. Chronic kidney disease
3. Acute kidney injury
4. Anemia of chronic disease
5. Dehydration
6. Iron deficiency anemia
7. Hemolytic anemia
8. Medication-induced anemia
9. Hypovolemia
10. Myelodysplastic syndrome
SUMMARY OF ENCOUNTER
The patient, an 84-year-old male, presented to the emergency department due to elevated creatinine and blood urea nitrogen levels, alongside significant anemia. There is concern for potential gastrointestinal bleeding, indicated by the presence of
blood in the stool, contributing to the anemia. Additionally, a chest x-ray revealed a worsening right pleural effusion. For the management of gastrointestinal bleeding, a proton pump inhibitor (PPI) drip was initiated. The patient was noted to have
mild hyperkalemia, likely linked to an acute kidney injury. Based on this finding and the pleural effusion, the patient was administered a dose of furosemide (Lasix) to address both the effusion and hyperkalemia.
DISPOSITION
Admit for further workup and evaluation.
ASSESSMENT
1. Anemia with suspected gastrointestinal bleeding.
2. Acute kidney injury with mild hyperkalemia.
3. Worsening right pleural effusion.
EMERGENCY TREATMENTS ADMINISTERED
- Initiated PPI drip for gastrointestinal bleeding.
- Administered furosemide (Lasix) for pleural effusion and hyperkalemia management.
PLAN
- Admission for further diagnostic evaluation and management of anemia, possible gastrointestinal bleeding, acute kidney injury, and pleural effusion.
INDEPENDENT REVIEW OF LABS AND INTERPRETATION OF TESTS
My independent review of the basic metabolic panel (BMP) indicates mild hyperkalemia consistent with possible acute kidney injury.
My independent chest x-ray interpretation is concerning for worsening right pleural effusion.
MEDICATION RECONCILIATION
- Started on PPI drip for gastrointestinal bleed.
- Dose of furosemide (Lasix) administered for hyperkalemia and pleural effusion.
MEDICAL DECISION MAKING
1. Number and Complexity of Problems Addressed: Chronic conditions affecting care, including anemia, acute kidney injury, and right pleural effusion. Differential diagnosis considered: gastrointestinal bleeding, chronic kidney disease, acute kidney
injury, anemia of chronic disease, dehydration, iron deficiency anemia, hemolytic anemia, medication-induced anemia, hypovolemia, and myelodysplastic syndrome.
2. Data:
Category 1
- Reviewed basic metabolic panel indicating mild hyperkalemia.
- Interpreted chest x-ray showing worsened right pleural effusion.
Risk:
- Admission for further evaluation and management due to the complexity and risk associated with the presenting anemia, renal function impairment, and pleural effusion. Consideration for escalated care and management was made to ensure comprehensive
evaluation and treatment.
DIAGNOSIS
1. Anemia, unspecified with gastrointestinal bleeding (ICD-10: D64.9 + K92.2)
2. Acute kidney injury, unspecified (ICD-10: N17.9)
3. Pleural effusion, right side (ICD-10: J90)
*Pulse Oximetry
SaO2: 98
Oxygen Mode of Delivery: Room air
Patient hypoxic: no
*Critical Care Note
Total Time (30-74mins, 75-104mins- exclusive of procedures): 33 min
comment:
The high probability of a clinically significant, sudden or life threatening deterioration of the cardiovascular/gastrointestinal system(s) required my full and direct attention, intervention and personal management. The aggregate critical care time
was 33 minutes. This time is in addition to time spent performing reported procedures but includes the following:
[x] Data Review and interpretation
[x] Patient assessment and monitoring of vital signs
[x] Documentation
[x] Medication orders and management
ED Attending Note
-
Portions of this chart may have been created with voice recognition software.� Occasional wrong word or��sound alike� substitutions may have occurred due to the inherent limitations of voice recognition software.
Discharge Plan
Departure
Patient Disposition: Admit
Date of Disposition: 11/01/24
Time of Disposition: 17:03
Admit to: Telemetry
Presentation/result/management discussed w/ accepting MD/DO: Hospitalist
Discharge Problem:
Symptomatic anemia, MAIDA (acute kidney injury), Pleural effusion, Acute hyperkalemia
Prescriptions:
No Action
acetaminophen [Tylenol] 325 mg Tablet
650 mg PO Q4HPRN PRN (Reason: mild pain/fever>100.4)
magnesium hydroxide [Milk of Magnesia] 400 mg/5 mL Suspension
2,400 mg PO HSPRN PRN (Reason: constipation)
bisacodyl [Dulcolax (bisacodyl)] 10 mg Suppository
10 mg PA [id number] PRN (Reason: if no bm after mom)
pyridoxine (vitamin B6) 100 mg Tablet
100 mg PO DAILY
albuterol sulfate 90 mcg/actuation Hfa Aerosol Inhaler
2 puff INHALATION R Q6HPRN PRN (Reason: sob)
ipratropium bromide 21 mcg (0.03 %) [place],Non-Aerosol
2 spray INTRANASAL BID
finasteride 5 mg Tablet
5 mg PO DAILY
Saline Nasal 0.65 % Aerosol,[place]
1 spray INTRANASAL QIDPRN PRN (Reason: dryness)
lactulose 10 gram/15 mL Solution
10 g PO DAILYPRN PRN (Reason: constipation )
calcium carbonate-vitamin D3 [Calcium 500 + D] 500 mg-10 mcg (400 unit) Tablet
1 tab PO DAILY
Refresh Optive 0.5-0.9 % Drops
1 drp BOTH EYES BID
sodium chloride 1,000 mg Tablet,Soluble
1,000 mg PO BID
ondansetron 4 mg Tablet,Disintegrating
4 mg PO Q8HPRN PRN (Reason: nausea)
lidocaine 4 % Adhesive Patch,Medicated
2 patch TOPICAL DAILY
Rx Instructions:
APPLY ONE PATCH TO ANTERIOR RIB CAGE AND 1 PATCH TO LEFT SIDE MID POSTERIOR RIB CAGE
duloxetine [Cymbalta] 20 mg Capsule,Delayed Release(Dr/Ec)
20 mg PO DAILY
omeprazole 20 mg Tablet,Delayed Release (Dr/Ec)
20 mg PO DAILY
polyethylene glycol 3350 17 gram powder in packet
17 g PO BID
sennosides-docusate sodium 8.6-50 mg tablet
2 tab PO BID
Referrals:
UNKNOWN - PT NOT,INTERVIEWE [Family Provider]
Interventions
Interventions:
*Risk Screen - Suicide Last Done: 11/01/24 13:42
*General Assessment Last Done: 11/01/24 13:42
*Neglect/Abuse Screening Last Done: 11/01/24 13:42
*ED- Fall Risk Assessment Last Done: 11/01/24 13:42
*ED COVID-19 Vaccine History Last Done: 11/01/24 13:42
Discharge Date and Time
Print Language: TRISTANIAN
[2024-11-01 14:33] LABS: ALT (SGPT) 20 U/L (0-50); AST (SGOT) 25 U/L (17-59); Albumin 3.0 g/dl (3.5-5.0); Alkaline Phosphatase 86 U/L (38-126); Blood Urea Nitrogen 60 mg/dl (9-20); Calcium 9.2 mg/dl (8.4-10.2); Carbon Dioxide 21 mmol/L (22-30); Chloride 110 mmol/L (98-107); Estimated Creatinine Clearance 17 ml/min; Glucose 114 mg/dl (70-99); Magnesium 1.9 mg/dl (1.6-2.3); Potassium 5.4 mmol/L (3.5-5.1); Sodium 136 mmol/L (135-145); Total Protein 8.6 g/dl (6.3-8.2); eGFR 18.15
[2024-11-01] MEDS: PROTONIX 100 IV (14:37)
[2024-11-01] MEDS: PROTONIX IV 80 MG IV (14:37)
[2024-11-01] MEDS: DUONEB 3 ML INH (14:37)
[2024-11-01 15:22] LABS: Troponin I < 0.012 ng/ml
--- NOTE | 2024-11-01 17:17 | HPS.HSE ---
Family Physician
-
Family Physician: INTERVIEWE UNKNOWN - PT NOT
Chief Complaint
-
abnormal outpt blood work
History of Present Illness
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 Pt has speech impediment
at baseline, hence unable to gather history.
In the ED, he was found to be anemic with hemoglobin at 6.7, 1 unit PRBC ordered. Heme test positive, Protonix drip started.
His serum creatinine was abnormal and elevated at 3.2, from baseline at 0.9.
[place] [address], and chest x-ray showed moderate right pleural effusion, increased from previous exam. IV Lasix 40 mg x 1 dose ordered in ER.
Medical History
Past Medical History
Past Medical History: Reports Other
Additional Past Medical History:
Gout
Hypertension
Lyme disease
COPD
Hyperlipidemia
Hyponatremia
GERD
Coronary disease
BPH
Depression
IBS
Past Surgical History: Reports Other
Additional Past Surgical History:
Cardiac stent
Right eyelid cataract surgery
Social History
Tobacco: Non-smoker
Alcohol: None
Drug: None
Living: Prison
Family History
Family History: Not pertinent
Allergies / Home Medications
Allergies reflects when Allergies were last updated in [facility].
Home Medications with original date entered in [facility]
Allergy/Medication List:
Allergies
Allergy/AdvReac Type Severity Reaction Status Date / Time
Penicillins Allergy Unknown Unknown- Verified 04/22/24 13:34
tolerated
ceftriaxone
in Feb 2024
Home Medications
acetaminophen 325 mg tablet (Tylenol) 650 mg PO Q4HPRN PRN mild pain/fever>100.4 03/11/24
albuterol sulfate 90 mcg/actuation aerosol inhaler 2 puff inhalation R Q6HPRN PRN sob 03/11/24
bisacodyl 10 mg rectal suppository (Dulcolax (bisacodyl)) 10 mg [place] [id number] PRN if no bm after mom 03/11/24
calcium 500 mg (as carbonate)-vitamin D3 10 mcg (400 unit) tablet (Calcium 500 + D) 1 tab PO DAILY Supplement 03/11/24
carboxymethylcellulose 0.5 %-glycerin 0.9 % eye drops (Refresh Optive) 1 drp BOTH EYES BID dry eyes 03/11/24
finasteride 5 mg tablet 5 mg PO DAILY Urinary Issue 03/11/24
ipratropium bromide 21 mcg (0.03 %) nasal spray 2 spray intranasal BID Allergies 03/11/24
lactulose 10 gram/15 mL oral solution 10 g PO DAILYPRN PRN constipation 03/11/24
magnesium hydroxide 400 mg/5 mL oral suspension (Milk of Magnesia) 2,400 mg PO HSPRN PRN constipation 03/11/24
pyridoxine (vitamin B6) 100 mg tablet 100 mg PO DAILY Supplement 03/11/24
sodium chloride 0.65 % nasal spray aerosol (Saline Nasal) 1 spray intranasal QIDPRN PRN dryness 03/11/24
sodium chloride 1,000 mg soluble tablet 1,000 mg PO BID Electrolyte Repletion 04/22/24
duloxetine 20 mg capsule,delayed release 20 mg PO DAILY Mental Health 11/01/24
lidocaine 4 % topical patch 2 patch topical DAILY Pain 11/01/24
omeprazole 20 mg tablet,delayed release 20 mg PO DAILY Gastrointestinal Issue 11/01/24
ondansetron 4 mg disintegrating tablet 4 mg PO Q8HPRN PRN nausea 11/01/24
polyethylene glycol 3350 17 gram oral powder packet 17 g PO BID Gastrointestinal Issue 11/01/24
sennosides 8.6 mg-docusate sodium 50 mg tablet 2 tab PO BID Constipation 11/01/24
Review of Systems
-
Unable to obtain full review of systems at this time due to: Other (speech impediment)
Physical Exam
Vital Signs
Vital Signs
Temp Pulse Resp BP Pulse Ox
36.4 C 74 17 158/83 93
11/01/24 13:42 11/01/24 16:18 11/01/24 16:18 11/01/24 16:18 11/01/24 16:18
Physical Exam
General: Well Developed, Well Nourished, Comfortable and Appears Chronically Ill
HEENT: NormoCephalic, Moist mucous membranes, Atraumatic and Oxygen (1.5L NC )
Respiratory: Clear and Non Labored Respirations; No Accessory Resp Muscle Use
Cardiac: S1/S2 and Regular Rhythm; No Murmur or Rub
GI: Soft, Non Tender, Non Distended and Normal Bowel Sounds; No Organomegaly
Rectal: Deferred by Provider
Musculoskeletal: Edema, Left Lower Extremity (mild) and Edema, Right Lower Extremity (mild)
Skin: Warm and Dry
Neuro: Awake
Psych: Calm
Laboratory Results
-
11/01/24 13:39
11/01/24 13:39
Laboratory Results
Total Bilirubin 0.5 mg/dl (0.2-1.3) 11/01/24 13:39
AST 25 U/L (17-59) 11/01/24 13:39
ALT 20 U/L (0-50) 11/01/24 13:39
Alkaline Phosphatase 86 U/L (38-126) 11/01/24 13:39
Troponin I < 0.012 ng/ml 11/01/24 14:34
Data Reviewed
-
Diagnostic Radiology: Image Personally Visualized and interpreted and Report Reviewed by me
Lab Data: Labs Reviewed by me and Discussed with Physician
Impression/Plan
-
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 Pt has speech impediment
at baseline, hence unable to gather history.
In the ED, he was found to be anemic with hemoglobin at 6.7, 1 unit PRBC ordered. Heme test positive, Protonix drip started.
His serum creatinine was abnormal and elevated at 3.2, from baseline at 0.9.
[place] [address], and chest x-ray showed moderate right pleural effusion, increased from previous exam. IV Lasix 40 mg x 1 dose ordered in ER.
A/P:
# Acute on chronic anemia
1 unit PRBC ordered
Follow hemoglobin
Check iron studies, B12 and folate levels
Heme test positive in ER
Continue Protonix drip
clears for now, then NPO pMN
GI consult
# MAIDA, unclear cause
Serum creatinine 3.2 from baseline 0.9
Check UA, FENA
Check bladder scan with retention protocol
Check kidney ultrasound
Renal consult
# Worsening right pleural effusion with elevated proBNP
# Acute hypoxic respiratory insufficiency
# Possible acute on chronic heart failure with preserved ejection fraction
Placed on 1.5 L NC in ED , wean as tolerated
Status post IV Lasix 40 mg x 1 in the ER
Monitor serum creatinine
Monitor daily weight
Check echo
Cardiology consult
Other medical problems:
# Recent Acute right leg DVT, was on Eliquis
Eliquis not shown on home med rec
# CAD s/p LAD PCI (2012)
Home med rec does not show that patient is on any antiplatelet
# COPD, stable
# GERD
# H/O CVA, Unclear etiology
appears to have R sided weakness
DVT ppx: SCD
CODE STATUS: DNR noted from last admission
--- NOTE | 2024-11-01 17:38 | EDRN ---
this RN called the blood bank to check on the status of the pts type and screen
[2024-11-01 18:34] LABS: Iron 96 ug/dl (49-181)
[2024-11-01 18:44] LABS: Total Iron Binding Capacity 224 ug/dl (261-462)
[2024-11-01] MEDS: LASIX 40 MG IV (19:07)
[2024-11-01 19:44] LABS: Ferritin 110.0 ng/ml (17.9-464.0)
[2024-11-01 19:57] LABS: Urine Character Clear (Clear)
[2024-11-01 20:07] LABS: Urine Red Blood Cell 0-2 /HPF (0-2); Urine Squamous Cell 0-2 /LPF (Few); Urine White Cell 0-2 /HPF (0-5)
[2024-11-01 20:15] LABS: Folate 3.5 ng/ml (2.76-20); Vitamin B12 250 pg/ml (239-931)
--- NOTE | 2024-11-01 23:16 | PTCARENOTE ---
Patient admitted to 2N from ED, transferred with assist x2 to bed. Patient aao x3, speech impediment noted, affect pleasant. Orthostatic BP obtained on admission, assist x2 with rolling walker to stand, patient not safe to stand assist x1. Patient
confirms he uses wheelchair at facility and is able to self propel.
Per ED RN, patients sister does not want any testing done without her present.
Call hylton within reach, patient able to teach back use of call hylton for any needs. Protonix gtt continues to left forearm IV site, RN confirmed continuation of gtt with BIG DATA PLATFORM ARCHITECT. Will continue to monitor patient closely.
[2024-11-02] VITALS (9 sets, daily range): BP systolic 61–157; BP diastolic 77–85; BMI 23.4
[2024-11-02] MEDS: PROTONIX 100 IV ×2 (00:08→08:55)
--- NOTE | 2024-11-02 06:03 | PTCARENOTE ---
Patient noted with right eye is puffiness, green/yellow drainage. Patient difficulty confirming any discomfort to eye at this time. Hygiene provided and wiped with wet washcloth. 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
[2024-11-02 07:05] LABS: Hematocrit 21.8 % (39.0-52.0); Hemoglobin 7.3 g/dL (13.0-18.0); Mean Corp Hgb Conc. 33.5 g/dL (33.0-37.0); Mean Corpuscular Volume 99.1 fL (80.0-94.0); Platelet Count 119 10^3/uL (130-400); Red Cell Dist. Width 16.7 % (11.5-14.5)
[2024-11-02 07:26] LABS: Blood Urea Nitrogen 56 mg/dl (9-20); Calcium 8.8 mg/dl (8.4-10.2); Carbon Dioxide 23 mmol/L (22-30); Chloride 111 mmol/L (98-107); Estimated Creatinine Clearance 16 ml/min; Glucose 72 mg/dl (70-99); Potassium 4.7 mmol/L (3.5-5.1); Sodium 137 mmol/L (135-145); eGFR 17.49
--- NOTE | 2024-11-02 08:13 | CON.CAR ---
Addendum entered and electronically signed by Yuriy Billings MD 11/02/24 10:51:
I saw and evaluated the patient, and I provided the substantive portion of the medical decision making.
I reviewed and agree with the note by Lamar SANCHEZ it accurately reflects our care.
I personally performed the medical decision making of the this encounter and my assessment and plan is below:
84-year-old gentleman with a past medical history of CAD status post remote PCI, hypertension, hyperlipidemia, HFpEF, COPD and anemia sent for abnormal labs noted to have low hemoglobin and elevated creatinine. We are asked to comment on his volume
status. He is complaining of feeling 'not so good' and short of breath. He denies any chest pain or pressure. Of note, he was found to have heme positive stool. On exam he is alert in moderate distress, he has purulent eye discharge on the right
eye. Diffusely rhonchorous and wheezy, regular rate and rhythm normal S1-S2 no murmurs or gallops were appreciated, abdomen was distended but soft no lower extremity edema.
Labs are significant for hemoglobin of 6.7 on admission increased to 7.3 after unit of blood, creatinine 3.3Improved from 3.6 on admission. Chest x-ray showed moderate right sided pleural effusion with cephalization and interstitial markings. EKG
shows normal sinus rhythm.
Assessment:
Acute on chronic HFpEF
MAIDA
GI bleeding
COPD exacerbation?
Chronic conditions:
CAD status post PCI
Hypertension
Hyperlipidemia
Congenital hearing loss,
Speech impediment
Left-sided weakness
Plan:
Continue IV diuresis twice daily with intensive monitoring
Will update echo to ensure ejection fraction has not changed
Consider additional GDMT as renal function improves
Nephrology consult pending to further evaluate etiologies of MAIDA
Treatment of COPD as per medicine
Will follow
Original Note:
Consultation
Consultation Request
Date/Time Consultation Requested: 11/01/24 9692
Date/Time Consultation Performed: 11/02/24 8515
Requesting Provider: Dr. Monzon
Performing Provider: Lamar SANCHEZ for Dr. Billings
Reason for Consultation: CHF
Medical History
-
Chief Complaint: abnormal labs
History of Present Illness:
84 y/o male (cardiology patient of Dr. Monzon) with CAD with stenting (mid LAD 2012), hypertension, dyslipidemia, COPD, HFpEF, anemia, BPH, DVT, congenital hearing loss, left sided weakness, and speech impediment who is here for abnormal labs as OP
with abnormal hgb and renal function (MAIDA). HGB 6.7. Heme+ stool. Now on PPI drip and transfused 1 unit PRBC. We are consulted for suspected prwnj-[id number]-[id number] HFpEF. He is pleasant and in no distress, but actively wheezing to assessment. He is also
coughing up white sputum and right eye has white/yellow discharge. He is on O2 by [place]. Reports his breathing is 'so-so'.
Past Medical History
Past Medical History: CAD, CHF, HTN, Hypercholesterolemia and Other (as above)
Social History
Living: Prison
Family History
Family History: Reviewed & Not Pertinent
Allergies / Home Medications
Allergy/AdvReac Type Severity Reaction Status Date / Time
Penicillins Allergy Unknown Unknown- Verified 04/22/24 13:34
tolerated
ceftriaxone
in Feb 2024
�Medication �Instructions �Recorded �Confirmed �Type
acetaminophen 325 mg tablet 650 mg PO Q4HPRN PRN mild 03/11/24 11/01/24 History
(Tylenol) pain/fever>100.4
albuterol sulfate 90 mcg/actuation 2 puff inhalation R Q6HPRN PRN sob 03/11/24 11/01/24 History
aerosol inhaler
bisacodyl 10 mg rectal suppository 10 mg AR [id number] PRN if no bm 03/11/24 11/01/24 History
(Dulcolax (bisacodyl)) after mom
calcium 500 mg (as 1 tab PO DAILY Supplement 03/11/24 11/01/24 History
carbonate)-vitamin D3 10 mcg (400
unit) tablet (Calcium 500 + D)
carboxymethylcellulose 0.5 1 drp BOTH EYES BID dry eyes 03/11/24 11/01/24 History
%-glycerin 0.9 % eye drops
(Refresh Optive)
finasteride 5 mg tablet 5 mg PO DAILY Urinary Issue 03/11/24 11/01/24 History
ipratropium bromide 21 mcg (0.03 2 spray intranasal BID Allergies 03/11/24 11/01/24 History
%) nasal spray
lactulose 10 gram/15 mL oral 10 g PO DAILYPRN PRN constipation 03/11/24 11/01/24 History
solution
magnesium hydroxide 400 mg/5 mL 2,400 mg PO HSPRN PRN constipation 03/11/24 11/01/24 History
oral suspension (Milk of Magnesia)
pyridoxine (vitamin B6) 100 mg 100 mg PO DAILY Supplement 03/11/24 11/01/24 History
tablet
sodium chloride 0.65 % nasal spray 1 spray intranasal QIDPRN PRN 03/11/24 11/01/24 History
aerosol (Saline Nasal) dryness
sodium chloride 1,000 mg soluble 1,000 mg PO BID Electrolyte 04/22/24 11/01/24 History
tablet Repletion
duloxetine 20 mg capsule,delayed 20 mg PO DAILY Mental Health 11/01/24 11/01/24 History
release
lidocaine 4 % topical patch 2 patch topical DAILY Pain 11/01/24 11/01/24 History
omeprazole 20 mg tablet,delayed 20 mg PO DAILY Gastrointestinal 11/01/24 11/01/24 History
release Issue
ondansetron 4 mg disintegrating 4 mg PO Q8HPRN PRN nausea 11/01/24 11/01/24 History
tablet
polyethylene glycol 3350 17 gram 17 g PO BID Gastrointestinal Issue 11/01/24 11/01/24 History
oral powder packet
sennosides 8.6 mg-docusate sodium 2 tab PO BID Constipation 11/01/24 11/01/24 History
50 mg tablet
Review of Systems
-
History Source: Patient
All other systems: Negative unless noted
Respiratory: Cough and Trouble Breathing
Physical Exam
Vital Signs
Temp Pulse Resp BP Pulse Ox
97.6 F 64 20 143/77 98
11/02/24 03:40 11/02/24 03:52 11/02/24 03:52 11/02/24 03:40 11/02/24 03:52
Lab Results
11/02/24 06:43
11/02/24 06:43
Troponin I < 0.012 ng/ml 11/01/24 14:34
Uzb-F-Widlitmkvze Pept 83482 pg/ml 11/01/24 14:34
Physical Exam
General: No Apparent Distress
HEENT: Other (right eye white/yellow discharge)
Respiratory: Wheezes (throughout) and Other (on O2 by NC)
Cardiac: Regular Rhythm
GI: Other (abdominal bloating)
Musculoskeletal: No Edema
Skin: Warm and Dry
Neuro: Awake and Alert
Psych: Calm
Impression / Plan
-
Anemia, GIB:
-GI consulted
-s/p 1 unit PRBC
-on PPI drip
Cnbel-yn-hcvdwwy HFpEF:
-in setting of anemia and MAIDA
-weight up from last hospitalization and evidence for excess volume on CXR. Also with JVD and abdominal bloating. Of note, he was d/c'd home with lasix 40 mg PO daily at last hospitalization here, but it is not on his medicine list.
-echo updated this AM, results pending
-continue IV lasix, which requires intensive monitoring
MAIDA:
-monitor with IV diuresis
-nephrology is consulted
-renal u/s to be checked
CAD with hx stenting:
-was on DAPT in past, but stopped last admit when Eliquis was added for DVT
-should at least be on ASA, but will not add right now with acute bleed- add as soon as able
-trop WNL, no CP
Hx DVT:
-previously on Eliquis, management per primary
COPD:
-he is wheezing- I contacted nursing and asked to give breathing tx. He is also having a productive cough with white sputum.
Right eye discharge:
-also management per primary
Data Reviewed
-
EKG: Tracing Personally Visualized and interpreted (NSR 61 BPM)
Radiology: Report Reviewed by me (CXR: Moderate right pleural effusion, significantly increasing since previous examination. Cardiac silhouette size is enlarged. Diffusely increased interstitial markings, suggestive of interstitial pulmonary edema
pattern. )
Medical Tests (Nuc Med, Echo etc): Report Reviewed by me (echo 04/25/24: Normal biventricular size and systolic function without regional wall motion abnormality. Mild concentric left ventricular hypertrophy. Aortic root (4.0 cm) and the
ascending aorta (4.2 cm) dilatation. No significant valvular disease. )
Labs: Labs Reviewed by me
[2024-11-02] MEDS: CYMBALTA DELAYED RELEASE 20 MG PO (10:02)
[2024-11-02] MEDS: REFRESH CELLUVISC GEL 1 DROPS BOTH EYES ×2 (10:02→20:57)
[2024-11-02] MEDS: ERYTHROMYCIN 0.5% OPHTHALMIC OINTMENT 1 APPLIC RIGHT EYE ×4 (10:02→21:00)
[2024-11-02] MEDS: PROSCAR 5 MG PO (10:02)
--- NOTE | 2024-11-02 10:03 | CON.GI ---
Addendum entered and electronically signed by Jarrett Yang MD 11/02/24 15:17:
I saw and examined the patient.
The SUPPLY AND DISTRIBUTION MANAGER's note was reviewed and I agree with the note.
84yo with hx multiple med problems CAD with prior stent, CHF, COPD, GERD, HTN, hyperlipidemia, depression, IBS, gait dysfunction, syncope, edema, BPH, prior hip and rib fx with fall, DVT, hearing loss , speech impediment, gout, lyme disease presents
to with abnormal blood work . On admission noted with hbg 6.7 with prior baselines - last spring, MCV 102, creat 3.2 with prior normal creat in April, b12 250, folate 3.5, and iron studies not consistent with iron deficiency. In review with
sister hx IBS with feeling of pressure, with diarrhea and constipation. dysphagia, GERD, nausea, vomiting, abdominal pain, or rectal bleeding. Has followed with Dr. Diaz years ago. Hx colonoscopy and possible EGD in past with Dr. Diaz may
have been up to 10 years ago.
-macrocytic anemia with brown stool in ER
-wheezing on exam
-moderate effusion on CXR
-borderline B12
-CHF
-MAIDA
-hx IBS with diarrhea and constipation
plan
No overt GI bleeding. SUPPLY AND DISTRIBUTION MANAGER discussed with family-conservative management. Hold off on invasive GI procedures
Continue current medical care
B12 replacement as per medical team
No further recommendation. Will sign off.
Original Note:
Consultation
-
Date/Time Consultation Requested: 11/01/24 1719
Date/Time Consultation Performed: 11/02/24 1000
Requesting Provider: Alessia Monzon MD
Performing Provider: DANIEL Davila, Jarrett Yang MD
Reason for Consultation: anemia
Medical History
Chief Complaint / HPI
Chief Complaint: abnormal labs, shortness of breath
History of Present Illness:
Pt is an 84yo with hx multiple med problems CAD with prior stent, CHF, COPD, GERD, HTN, hyperlipidemia, depression, IBS, gait dysfunction, syncope, edema, BPH, prior hip and rib fx with fall, DVT, hearing loss , speech impediment, gout, lyme disease
presents to with abnormal blood work . On admission noted with hbg 6.7 with prior baselines 9-10 last spring, MCV 102, creat 3.2 with prior normal creat in April, b12 250, folate 3.5, and iron studies not consistent with iron deficiency. In
review with sister hx IBS with feeling of pressure, with diarrhea and constipation. dysphagia, GERD, nausea, vomiting, abdominal pain, or rectal bleeding. Has followed with Dr. Diaz years ago. Hx colonoscopy and possible EGD in past with
Emily may have been up to 10 years ago.
Past Medical History
Past Medical History: CHF, COPD, GERD, HTN, Hypercholesterolemia, Psychiatric (depression) and Other (IBS, gait dysfunction, syncope, edema, BPH, prior hip and rib fx with fall, DVT, hearing loss , speech impediment, gout, lyme disease)
Past Surgical History: Cardiac (cardiac stenting mid LAD) and Other (eye surgery )
Social History
Tobacco: Non-Smoker
Alcohol: Occasional (social )
Drug: None
Living: Assisted
Family History
Family History: Other (sister with crohns, neice with crohns )
Allergies / Home Medications
Allergy/AdvReac Type Severity Reaction Status Date / Time
Penicillins Allergy Unknown Unknown- Verified 04/22/24 13:34
tolerated
ceftriaxone
in Feb 2024
�Medication �Instructions �Recorded
acetaminophen 325 mg tablet 650 mg PO Q4HPRN PRN mild 03/11/24
(Tylenol) pain/fever>100.4
albuterol sulfate 90 mcg/actuation 2 puff inhalation R Q6HPRN PRN sob 03/11/24
aerosol inhaler
bisacodyl 10 mg rectal suppository 10 mg ME [id number] PRN if no bm 03/11/24
(Dulcolax (bisacodyl)) after mom
calcium 500 mg (as 1 tab PO DAILY Supplement 03/11/24
carbonate)-vitamin D3 10 mcg (400
unit) tablet (Calcium 500 + D)
carboxymethylcellulose 0.5 1 drp BOTH EYES BID dry eyes 03/11/24
%-glycerin 0.9 % eye drops
(Refresh Optive)
finasteride 5 mg tablet 5 mg PO DAILY Urinary Issue 03/11/24
ipratropium bromide 21 mcg (0.03 2 spray intranasal BID Allergies 03/11/24
%) nasal spray
lactulose 10 gram/15 mL oral 10 g PO DAILYPRN PRN constipation 03/11/24
solution
magnesium hydroxide 400 mg/5 mL 2,400 mg PO HSPRN PRN constipation 03/11/24
oral suspension (Milk of Magnesia)
pyridoxine (vitamin B6) 100 mg 100 mg PO DAILY Supplement 03/11/24
tablet
sodium chloride 0.65 % nasal spray 1 spray intranasal QIDPRN PRN 03/11/24
aerosol (Saline Nasal) dryness
sodium chloride 1,000 mg soluble 1,000 mg PO BID Electrolyte 04/22/24
tablet Repletion
duloxetine 20 mg capsule,delayed 20 mg PO DAILY Mental Health 11/01/24
release
lidocaine 4 % topical patch 2 patch topical DAILY Pain 11/01/24
omeprazole 20 mg tablet,delayed 20 mg PO DAILY Gastrointestinal 11/01/24
release Issue
ondansetron 4 mg disintegrating 4 mg PO Q8HPRN PRN nausea 11/01/24
tablet
polyethylene glycol 3350 17 gram 17 g PO BID Gastrointestinal Issue 11/01/24
oral powder packet
sennosides 8.6 mg-docusate sodium 2 tab PO BID Constipation 11/01/24
50 mg tablet
Review of Systems
-
History Source: Patient and Family
Constitutional: Reports Weight Loss (over [address] [facility] )
Respiratory: Reports Trouble Breathing and Other (wheezing )
Abdomen/GI: Reports Abdominal Pain, Diarrhea and Constipated
: Reports No Symptoms
Musculoskeletal: Reports No Symptoms
Skin: Reports No Symptoms
Neurological: Reports Other (decreased mobility with WC mobility )
Endocrine: Reports No Symptoms
Hematologic/Lymphatic: Reports No Symptoms
Vital Signs
Temp Pulse Resp BP Pulse Ox
97.4 F 66 22 141/80 98
11/02/24 08:11/02/24 08:11/02/24 08:11/02/24 08:11/02/24 08:25
Physical Exam
Exam
General: Other (elderly male with noted wheezing on exam, speech difficulty but able to answer most questions)
HEENT: Normocephalic and Anicteric
Respiratory: Wheezes (with slight stridor due for treatment ) and Other (slightly short of breath on exam )
Cardiac: Regular Rhythm
GI: Soft, Non Tender and Non Distended
Rectal: Brown (heme + in ER)
Musculoskeletal: No Clubbing and No Cyanosis
Skin: Warm and Dry
Neuro: Awake, Alert and AO x 3 (chronic slurred speech )
Psych: Calm
Results
WBC 3.6 10^3/uL (4.8-10.8) L 11/02/24 06:43
Hgb 7.3 g/dL (13.0-18.0) L 11/02/24 06:43
Hct 21.8 % (39.0-52.0) L 11/02/24 06:43
MCV 99.1 fL (80.0-94.0) H 11/02/24 06:43
Plt Count 119 10^3/uL (130-400) L 11/02/24 06:43
Absolute Neuts (auto) 2.8 10^3/uL (1.4-6.5) 11/01/24 13:39
Sodium 137 mmol/L (135-145) 11/02/24 06:43
Potassium 4.7 mmol/L (3.5-5.1) 11/02/24 06:43
Chloride 111 mmol/L (98-107) H 11/02/24 06:43
Carbon Dioxide 23 mmol/L (22-30) 11/02/24 06:43
BUN 56 mg/dl (9-20) H 11/02/24 06:43
Creatinine 3.3 mg/dL (0.7-1.3) H 11/02/24 06:43
Calcium 8.8 mg/dl (8.4-10.2) 11/02/24 06:43
Total Bilirubin 0.5 mg/dl (0.2-1.3) 11/01/24 13:39
AST 25 U/L (17-59) 11/01/24 13:39
ALT 20 U/L (0-50) 11/01/24 13:39
Alkaline Phosphatase 86 U/L (38-126) 11/01/24 13:39
Diagnostic Image Results:
11/01 CXR
Moderate right pleural effusion, significantly increasing since previous examination.
See above narrative.
Prior GI Procedures:
EGD: years ago Emily Mosher
Colonoscopy: years ago Dr. Diaz
Assessment / Plan
-
Pt is an 84yo with hx multiple med problems CAD with prior stent, CHF, COPD, GERD, HTN, hyperlipidemia, depression, IBS, gait dysfunction, syncope, edema, BPH, prior hip and rib fx with fall, DVT, hearing loss , speech impediment, gout, lyme disease
presents to with abnormal blood work . On admission noted with hbg 6.7 with prior baselines 9-10 last spring, MCV 102, creat 3.2 with prior normal creat in April, b12 250, folate 3.5, and iron studies not consistent with iron deficiency. In
review with sister hx IBS with feeling of pressure, with diarrhea and constipation. dysphagia, GERD, nausea, vomiting, abdominal pain, or rectal bleeding. Has followed with Dr. Diaz years ago. Hx colonoscopy and possible EGD in past with
Emily may have been up to 10 years ago.
-macrocytic anemia with brown stool in ER
-wheezing on exam
-moderate effusion on CXR
-borderline B12
-CHF
-MAIDA
-hx IBS with diarrhea and constipation
other med problems:
- CAD with prior stent
- COPD
-GERD
-HTN
-hyperlipidemia
depression
- gait dysfunction
syncope
-BPH
prior hip and rib fx with fall, DVT
-hearing loss/ speech impediment
- gout
-lyme disease
-DNR
PLAN:
etiology of anemia less likely GI source with brown stools, macrocytosis may be multi factorial with low range 12 and renal issues
I reviewed with sister no role for GI work up at this time and she would prefer conservative measures
pt with some abdominal pressure which is a common complaint per sister with IBS
pt need medical optimization with wheezing on exam
ok from GI for diet-- I sent message to other providers to see if NPO needed for any other testing as sister would like patient to eat
trend hbg
replete B12 per medical team
s/p card eval with CHF, for renal eval with MAIDA
GI will sign off if significant drop or signs of aggressive bleeding can reassess
I did request Dr. Diaz records if scopes needed
-
-
Thank you for consultation and allowing me to participate in the patient's care. Please call the pest control operator GI physician during the after hours with any questions or concerns.
[2024-11-02] MEDS: LASIX 40 MG IV ×2 (10:36→16:21)
--- NOTE | 2024-11-02 11:34 | CM ---
Addendum entered by Lindsay Marquez 11/02/24 13:25:
Patient referral sent to [facility] and CM called to touch base with sister: kaela [phone]; Per sister her biggest question is about diet. CM will update physician and continue to follow for discharge planning needs.
Original Note:
Patient is from [facility], where he is a detention care patient. CM called to Liaison for [facility] and confirmed patient continues to self propell in his wheelchair and he can hold a conversation. Patient is dependent of care per facility liaison. Patient
sister is very involved and supportive. CM will continue to follow for discharge planning needs. CM will send updated clinicals to facility with [facility]. CM will continue to follow for discharge planning needs.
Plan; return to SNF; [facility] ltc patient
--- NOTE | 2024-11-02 13:00 | W.CON.NEPH ---
Consultation
-
Date/Time Consultation Requested: 11/01/24 1722
Date/Time Consultation Performed: 11/02/24 1300
Requesting Provider: Alessia Sweet
Performing Provider: Belkis Garza
Reason for Consultation: MAIDA
Medical History
-
Chief Complaint: abnomral labs
History of Present Illness:
84-year-old male with PMH CVA, congenital hearing loss, speech impediment as a child, chronic anemia,chr hyponatremia on salt atb, CAD s/p PCI LAD, HFpE no ton diuretics, HLD, depression, BPH on FInasteride, presented with outpatient blood work
that noted elevated BUN and SCr. Pt has speech impediment at baseline, hence history is limited.
In the ED, he was found to be anemic with hemoglobin at 6.7, Heme test positive, His serum creatinine was abnormal and elevated at 3.2, from baseline at 0.9 in 04/2024. His cr has been up since 10/28 labs at 3.6[place] [address], and chest x-ray showed moderate right pleural effusion, increased from previous exam. IV Lasix 40 mg x 1 dose given in ER. Started on NC O2.
This morning cr at 3.3, k improved from 5.4 to 4.7. Hb better at 7.3 post PRBC. Nephrology consulted for MAIDA management.
TOday he feels better, no dysuria. He had some lower abd pain which improved. Has cough mild. No CP or n/v. No fever.
Past Medical History
Gout
Hypertension
Lyme disease
COPD
Hyperlipidemia
Hyponatremia
GERD
Coronary disease
BPH
Depression
IBS
h/o DVT
h/o ESBL bacteremia from PNA in 04/2024
Social History
Tobacco: Non-Smoker
Alcohol: None
Drug: None
Living: [facility]
Family History
Family History: Not Pertinent
Allergies / Home Medications
Allergy/AdvReac Type Severity Reaction Status Date / Time
Penicillins Allergy Unknown Unknown- Verified 04/22/24 13:34
tolerated
ceftriaxone
in Feb 2024
�Medication �Instructions �Recorded �Confirmed �Type
acetaminophen 325 mg tablet 650 mg PO Q4HPRN PRN mild 03/11/24 11/01/24 History
(Tylenol) pain/fever>100.4
albuterol sulfate 90 mcg/actuation 2 puff inhalation R Q6HPRN PRN sob 03/11/24 11/01/24 History
aerosol inhaler
bisacodyl 10 mg rectal suppository 10 mg NH [id number] PRN if no bm 03/11/24 11/01/24 History
(Dulcolax (bisacodyl)) after mom
calcium 500 mg (as 1 tab PO DAILY Supplement 03/11/24 11/01/24 History
carbonate)-vitamin D3 10 mcg (400
unit) tablet (Calcium 500 + D)
carboxymethylcellulose 0.5 1 drp BOTH EYES BID dry eyes 03/11/24 11/01/24 History
%-glycerin 0.9 % eye drops
(Refresh Optive)
finasteride 5 mg tablet 5 mg PO DAILY Urinary Issue 03/11/24 11/01/24 History
ipratropium bromide 21 mcg (0.03 2 spray intranasal BID Allergies 03/11/24 11/01/24 History
%) nasal spray
lactulose 10 gram/15 mL oral 10 g PO DAILYPRN PRN constipation 03/11/24 11/01/24 History
solution
magnesium hydroxide 400 mg/5 mL 2,400 mg PO HSPRN PRN constipation 03/11/24 11/01/24 History
oral suspension (Milk of Magnesia)
pyridoxine (vitamin B6) 100 mg 100 mg PO DAILY Supplement 03/11/24 11/01/24 History
tablet
sodium chloride 0.65 % nasal spray 1 spray intranasal QIDPRN PRN 03/11/24 11/01/24 History
aerosol (Saline Nasal) dryness
sodium chloride 1,000 mg soluble 1,000 mg PO BID Electrolyte 04/22/24 11/01/24 History
tablet Repletion
duloxetine 20 mg capsule,delayed 20 mg PO DAILY Mental Health 11/01/24 11/01/24 History
release
lidocaine 4 % topical patch 2 patch topical DAILY Pain 11/01/24 11/01/24 History
omeprazole 20 mg tablet,delayed 20 mg PO DAILY Gastrointestinal 11/01/24 11/01/24 History
release Issue
ondansetron 4 mg disintegrating 4 mg PO Q8HPRN PRN nausea 11/01/24 11/01/24 History
tablet
polyethylene glycol 3350 17 gram 17 g PO BID Gastrointestinal Issue 11/01/24 11/01/24 History
oral powder packet
sennosides 8.6 mg-docusate sodium 2 tab PO BID Constipation 11/01/24 11/01/24 History
50 mg tablet
Physical Exam
Vital Signs
Vital Signs
Temp Pulse Resp BP Pulse Ox
97.4 F 65 18 147/87 99
11/02/24 08:25 11/02/24 12:02 11/02/24 12:02 11/02/24 10:36 11/02/24 12:02
Lab Results
WBC 3.6 10^3/uL (4.8-10.8) L 11/02/24 06:43
RBC 2.20 10^6/uL (4.70-6.10) L 11/02/24 06:43
Hgb 7.3 g/dL (13.0-18.0) L 11/02/24 06:43
Hct 21.8 % (39.0-52.0) L 11/02/24 06:43
Plt Count 119 10^3/uL (130-400) L 11/02/24 06:43
Sodium 137 mmol/L (135-145) 11/02/24 06:43
Potassium 4.7 mmol/L (3.5-5.1) 11/02/24 06:43
Chloride 111 mmol/L (98-107) H 11/02/24 06:43
Carbon Dioxide 23 mmol/L (22-30) 11/02/24 06:43
BUN 56 mg/dl (9-20) H 11/02/24 06:43
Creatinine 3.3 mg/dL (0.7-1.3) H 11/02/24 06:43
eGFR 17.49 11/02/24 06:43
Glucose 72 mg/dl (70-99) 11/02/24 06:43
Calcium 8.8 mg/dl (8.4-10.2) 11/02/24 06:43
Uio-E-Szqjidlacqg Pept 31151 pg/ml 11/01/24 14:34
Albumin 3.0 g/dl (3.5-5.0) L 11/01/24 13:39
Physical Exam
General: Awake, Alert, Oriented, AOx3 and No Distress
HEENT: EOMI, Anicteric, Ear/Nose Intact and Facial Symmetry
Respiratory: Crackels, Normal Excursion and Nonlabored Respirations
Cardiac: S1/S2 and Regular Rate/Rhythm
Breast: Deferred by me
Abdomen: Soft, Nontender and Nondistended
Musculoskeletal: No Cyanosis and No Edema
Skin: No Rash
Neuro: Nonfocal/Grossly Intact
Psych: Appropriate
Data Reviewed
-
Labs: Labs Reviewed by me, Discussed with Physician, Discussed with Patient and Discussed with Family
Assessment/Plan
-
IMP:
Acute on chronic anemia
MAIDA, unclear cause-cr 0.9 in 04/2024
Worsening right pleural effusion with elevated proBNP
Acute hypoxic respiratory insufficiency
Possible acute on chronic heart failure with preserved ejection fraction
h/o right leg DVT, was on Eliquis
CAD s/p LAD PCI (2012)
COPD, stable
GERD
H/O CVA, Unclear etiology
Congenital hearing loss,
Speech impediment
hyperlipidemia
depression
gait dysfunction
PLan:
A/w abnormal labs, anemia and MAIDA
MAIDA-bland UA, Fena high no clear etiology
with high BNP and CHF may be cardiorenal , non oliguric
however given anemia would check paraprotein w/u
await renal US and follow bladder scan
Bp stable
avoid nephrotoxins
would cont lasix for now , echo normal EF
follow h/h, prn transfusion , no GI intervention noted
adequate fe stores and vit b12 borderline low
d/w sister, who states no dialysis if renal function worsens
--- NOTE | 2024-11-02 13:49 | W.PN.HOSP.TC ---
Today's Communication/Plan
-
advance diet
IR consult--thoracentesis for tomorrow ordered with studies
replace B12, folate
Assessment / Plan
Assessment / Plan
pt is an 84 year old male
Acute on chronic anemia--doubt GI bleeding--apprec input--studies more c/w anemia of chronic disease--s/p 1 unit pRBCs--B12 and folate both low normal--replete both
MAIDA, unclear cause--Serum creatinine 3.2 from baseline 0.9--apprec renal--renal US pending--w/u in process
Worsening right pleural effusion with elevated proBNP with Acute hypoxic respiratory insufficiency--Possible acute on chronic heart failure with preserved ejection fraction--consult IR for right thoracentesis (studies ordered)--cont speech--?
aspiration--wean O2--diuresis--echo with preserved EF and diastolic dysfunction--apprecc cards
Recent Acute right leg DVT, was on Eliquis--Eliquis not shown on home med rec
CAD s/p LAD PCI (2012)--Home med rec does not show that patient is on any antiplatelet
COPD, stable
GERD
H/O CVA, Unclear etiology--appears to have R sided weakness
DVT proph--SCD
CODE STATUS-- DNR noted from last admission
Anticipated Discharge: > 48 hours
Subjective/Interval History
-
Date of Service: November 02, 2024
pt without c/o--states he sometimes coughs (lauren after eating) with white to yellowish sputum
Objective Data
-
Labs:
Laboratory Results
11/02/24
06:43
WBC 3.6 L
Hgb 7.3 L
Hct 21.8 L
Plt Count 119 L
Sodium 137
Potassium 4.7
Chloride 111 H
Carbon Dioxide 23
BUN 56 H
Creatinine 3.3 H
Glucose 72
Calcium 8.8
Vital Signs:
max temp for 24 hours
11/02/24
03:40
Temp 97.6 F
Vital Signs
Temp Pulse Resp BP Pulse Ox
97.4 F 63 20 140/85 99
11/02/24 13:11/02/24 13:11/02/24 13:11/02/24 13:11/02/24 13:09
I&O
11/01/24 11/02/24 11/03/24
06:59 06:59 06:59
Intake Total 250 / 250
Output Total 1100 / 1100
Balance -850 / -850
Review of Systems
-
All other systems: Reviewed and negative
Physical Exam
-
General: Appears Chronically Ill
HEENT: Normocephalic, Atraumatic and Oxygen
Respiratory: Wheezes (possible upper airway stridor?)
Cardiac: Regular Rhythm and S1/S2; Negative Murmur
GI: Soft, Nontender, Nondistended and Normal Bowel Sounds
Musculoskeletal: No Clubbing, No Cyanosis and No Edema
Neuro: Awake
Psych: Calm
[2024-11-02 14:25] LABS: LDH 121 U/L (120-246); Total Protein 7.7 g/dl (6.3-8.2)
[2024-11-02 16:35] LABS: Body Fluid Second Tech FB
[2024-11-03] VITALS (8 sets, daily range): BP systolic 128–139; BP diastolic 63–81; PULSE 62; O2SAT 100; BMI 22.3
--- NOTE | 2024-11-03 08:35 | PTOTSP ---
Speech Language Pathology
Pt seen for clinical bedside swallow evaluation. P.O. trials of puree, regular solids, and thin liquids provided. Prolonged mastication secondary to no lower dentition. No overt signs of aspiration, although pt with some wheezing after
consecutive sips of thin liquids. CXR did not show PNA.
Recommend:
(1) Continue IDDSI Level 6 (soft/bite-sized) solids and thin liquids
(2) Aspiration precautions: sit upright, slow rate
(3) Monitor wheezing with P.O. intake
(4) Meds as tolerated
(5) DOWN FILLER to continue to follow to ensure diet tolerance, assess for appropriateness of upgrade to regular (easy to chew) solids, and determine need for instrumental swallowing assessment
[2024-11-03 08:41] LABS: Hematocrit 22.5 % (39.0-52.0); Hemoglobin 7.6 g/dL (13.0-18.0); Mean Corp Hgb Conc. 33.8 g/dL (33.0-37.0); Mean Corpuscular Volume 97.8 fL (80.0-94.0); Platelet Count 123 10^3/uL (130-400); Red Cell Dist. Width 16.3 % (11.5-14.5)
--- NOTE | 2024-11-03 08:43 | W.PN.CD ---
Today's Communication / Plan
-
- LVEF 65-70% on echocardiogram; no significant valvular disease.
- Continue Lasix 40 IV twice daily; Nephrology following.
- Continue to monitor renal function with IV diuresis; labs pending this a.m.
- Status-post right thoracentesis with 1350 cc removed yesterday.
Impression / Plan
-
Anemia, GIB:
-GI consulted
-s/p 1 unit PRBC
-on PPI drip
Gkzqs-ay-hsqbebi HFpEF:
-in setting of anemia and MAIDA
-weight up from last hospitalization and evidence for excess volume on CXR. Also with JVD and abdominal bloating. Of note, he was d/c'd home with lasix 40 mg PO daily at last hospitalization here, but it is not on his medicine list.
- LVEF 65-70% on echocardiogram; no significant valvular disease.
- Continue Lasix 40 IV twice daily; Nephrology following.
MAIDA:
- Continue to monitor renal function with IV diuresis; labs pending this a.m.
-nephrology is consulted
-renal u/s to be checked
Pleural effusion:
- Status-post right thoracentesis with 1350 cc removed yesterday.
CAD with hx stenting:
-was on DAPT in past, but stopped last admit when Eliquis was added for DVT
-should at least be on ASA, but will not add right now with acute bleed- add as soon as able
-trop WNL, no CP
Hx DVT:
-previously on Eliquis, management per primary
COPD:
- Currently stable.
Right eye discharge:
-also management per primary
Physical Exam
Vital Signs/Labs
Vital Signs
Temp Pulse Resp BP Pulse Ox
98.1 F 57 18 133/70 97
11/03/24 08:26 11/03/24 08:26 11/03/24 08:26 11/03/24 08:26 11/03/24 08:26
11/02/24 11/03/24 11/04/24
06:59 06:59 06:59
Actual Weight 71.894 kg 68.402 kg
11/03/24 08:16
Magnesium 1.9 mg/dl (1.6-2.3) 11/01/24 13:39
11/01/24
14:34
Bei-H-Karldqhhaze Pept [id number]
LAB Results
11/01/24
14:34
Troponin I < 0.012
Physical Exam
Constitutional: No acute distress and Comfortable
EENT: Anicteric
Cardiovascular: Rhythm & rate is regular, Pedal edema is absent, Systolic murmur absent and S1S2 is normal
Respiratory: Respiratory effort normal and Lungs clear to auscul.
GI: Soft
Neuro/Psych: Alert
Other: Skin (Warm, dry)
Data Reviewed
-
Date of Service: November 03, 2024
EKG: Tracing Personally Visualized and interpreted (Telemetry: Sinus rhythm)
Echo: Report Reviewed by me (LVEF 65-70%)
Labs: Labs Reviewed by me
[2024-11-03 09:21] LABS: ALT (SGPT) 14 U/L (0-50); AST (SGOT) 17 U/L (17-59); Albumin 2.5 g/dl (3.5-5.0); Alkaline Phosphatase 80 U/L (38-126); Blood Urea Nitrogen 61 mg/dl (9-20); Calcium 9.0 mg/dl (8.4-10.2); Carbon Dioxide 23 mmol/L (22-30); Chloride 109 mmol/L (98-107); Estimated Creatinine Clearance 14 ml/min; Glucose 78 mg/dl (70-99); Magnesium 1.9 mg/dl (1.6-2.3); Potassium 4.9 mmol/L (3.5-5.1); Sodium 137 mmol/L (135-145); Total Protein 7.7 g/dl (6.3-8.2); eGFR 15.76
[2024-11-03] MEDS: PROTONIX 40 MG PO (09:43)
[2024-11-03] MEDS: CYMBALTA DELAYED RELEASE 20 MG PO (09:43)
[2024-11-03] MEDS: PROSCAR 5 MG PO (09:43)
[2024-11-03] MEDS: VITAMIN B-12 1000 MCG PO (09:44)
[2024-11-03] MEDS: FOLVITE 1 MG PO (09:44)
[2024-11-03] MEDS: REFRESH CELLUVISC GEL 1 DROPS BOTH EYES ×2 (09:45→20:37)
[2024-11-03] MEDS: LASIX 40 MG IV ×2 (09:45→15:28)
[2024-11-03] MEDS: ERYTHROMYCIN 0.5% OPHTHALMIC OINTMENT 1 APPLIC RIGHT EYE ×4 (09:46→22:23)
--- NOTE | 2024-11-03 10:09 | PN.CDI ---
CDI
- -
CDI:
Physician Documentation Request
Admit Date: 11/01/24 17:52
Dear Doctor Rose,
Please review the following and provide your response in the progress notes.
Clinical Indicators:
Selected Entries
11/02/24
01:44
Pressure injury stage [Present on admission Middle Sacrum] Stage 1
Physician documentation of the type and location of wounds is required for compliant documentation. Based on the above clinical findings and your assessment, please provide the following in your progress note:
Yes, Sacrum stage 1 pressure injury, POA
No, Sacrum stage 1 pressure injury
Other (please specify)
1. Location of the ulcer/wound, including laterality.
2. Type (etiology) of ulcer/wound:
- Diabetic ulcer
- Arterial (ischemic) ulcer
- Venous stasis ulcer
- Pressure (decubitus) ulcer
- Other
3. For a pressure ulcer, please also include the stage* of the ulcer:
- Stage 1 - Skin intact, non-blanchable redness
- Stage 2 - Partial thickness loss of dermis, includes intact or open blister
- Stage 3 - Full thickness tissue not including bone, tendon or muscle
- Stage 4 - Full thickness tissue loss, including exposed bone, tendon or muscle
- Unstageable - Full thickness loss in which the base of the ulcer is covered by slough (yellow, newby, pritchard, green or brown) and/or eschar (newby, brown or black) in the wound bed.
- Unable to determine
Use of terms such as suspected, likely, concern for, or probable (associated with a specific diagnosis that is being evaluated, monitored, or treated as if it exists) are acceptable and can be coded in the inpatient setting, when documented at the
time of discharge.
Thank you,
Ayleen Leonard RN BSN CCDS
CDI Specialist
Please contact via tiger text
Please use your independent medical judgment in providing your response.
*Source: National Pressure Ulcer Advisory Panel (NPUAP)
--- NOTE | 2024-11-03 10:22 | PN.CDI ---
CDI
- -
CDI:
Physician Documentation Request
Admit Date: 11/01/24 17:52
Dear Doctor Rose,
Please review the following and provide your response in the progress notes.
Clinical Indicators:
Laboratory Tests
11/01/24 11/02/24 11/03/24
13:39 06:43 08:16
WBC 3.8 L 3.6 L 3.7 L
RBC 2.00 L 2.20 L 2.30 L
Plt Count 140 119 L 123 L
Based on the above and your clinical assessment, please clarify the diagnosis/condition, if significant, that supports the above abnormalities and additional evaluation, monitoring and/or treatment rendered:
Pancytopenia
Other drug-induced pancytopenia
Abnormal lab value, clinically insignificant
Other(please specify)
Use of terms such as suspected, likely, concern for, or probable (associated with a specific diagnosis that is being evaluated, monitored, or treated as if it exists) are acceptable and can be coded in the inpatient setting, when documented at the
time of discharge.
Thank you,
Ayleen Leonard RN BSN CCDS
CDI Specialist
Please contact via tiger text
Please use your independent medical judgment in providing your response.
[2024-11-03 12:04] LABS: Glucose - Point of Care 120 mg/dl (70-99)
--- NOTE | 2024-11-03 13:57 | CM ---
Patient seen at bedside in [address] [place] [id number] with physician. Patient plan is for return to SNF when medically appropriate. Patient sister will review IMM when patient is ready for discharge. CM will continue to follow for discharge planning needs.
Plan; return to SNF LTC; [facility]
--- NOTE | 2024-11-03 15:14 | W.PN.HOSP.TC ---
Today's Communication/Plan
-
continuing diuresis
await pleural fluid results
Assessment / Plan
Assessment / Plan
pt is an 84 year old male
Acute on chronic anemia--doubt GI bleeding--apprec input--studies more c/w anemia of chronic disease--s/p 1 unit pRBCs--B12 and folate both low normal--replete both
MAIDA, unclear cause--Serum creatinine 3.2 from baseline 0.9--apprec renal--renal US pending--w/u in process
pancytopenia--unclear cause--follow
Worsening right pleural effusion with elevated proBNP with Acute hypoxic respiratory insufficiency--Possible acute on chronic heart failure with preserved ejection fraction--consult IR for right thoracentesis (studies ordered)--cont speech--?
aspiration--wean O2--diuresis--echo with preserved EF and diastolic dysfunction--apprec cards--continuing diuresis
Recent Acute right leg DVT, was on Eliquis--Eliquis not shown on home med rec
CAD s/p LAD PCI (2012)--Home med rec does not show that patient is on any antiplatelet
COPD, stable
GERD
H/O CVA, Unclear etiology--appears to have R sided weakness
wounds (POA)--stage 1 sacrum pressure injury
DVT proph--SCD
CODE STATUS-- DNR noted from last admission
Anticipated Discharge: 24 - 48 hours
Subjective/Interval History
-
Date of Service: November 03, 2024
pt s/p 1350mls thoracentesis
Objective Data
-
Labs:
Laboratory Results
11/03/24
08:16
WBC 3.7 L
Hgb 7.6 L
Hct 22.5 L
Plt Count 123 L
Sodium 137
Potassium 4.9
Chloride 109 H
Carbon Dioxide 23
BUN 61 H
Creatinine 3.6 H
Glucose 78
Calcium 9.0
Total Bilirubin 0.4
AST 17
ALT 14
Alkaline Phosphatase 80
Vital Signs:
max temp for 24 hours
11/02/24
19:23
Temp 98.1 F
Vital Signs
Temp Pulse Resp BP Pulse Ox
97.6 F 60 18 128/69 100
11/03/24 11:44 11/03/24 11:44 11/03/24 11:44 11/03/24 11:44 11/03/24 11:44
I&O
11/02/24 11/03/24 11/04/24
06:59 06:59 06:59
Intake Total 250 / 250 1680 / 1680 275 / 275
Output Total 1100 / 1100 650 / 650
Balance -850 / -850 1030 / 1030 275 / 275
Review of Systems
-
All other systems: Reviewed and negative
Physical Exam
-
General: Appears Chronically Ill
HEENT: Normocephalic, Atraumatic and Oxygen
Respiratory: Decreased Breath Sounds; Negative Wheezes
Cardiac: Regular Rhythm and S1/S2; Negative Murmur
GI: Soft, Nontender, Nondistended and Normal Bowel Sounds
Musculoskeletal: No Clubbing, No Cyanosis and No Edema
Neuro: Awake
--- NOTE | 2024-11-03 15:56 | W.PN.NEPH.PH ---
Today's Communication / Plan
-
lasix change to daily with increasing cr
Assessment/Plan
-
IMP:
Acute on chronic anemia
MAIDA, unclear cause-cr 0.9 in 04/2024
Worsening right pleural effusion with elevated proBNP
Acute hypoxic respiratory insufficiency
Possible acute on chronic heart failure with preserved ejection fraction
h/o right leg DVT, was on Eliquis
CAD s/p LAD PCI (2012)
COPD, stable
GERD
H/O CVA, Unclear etiology
Congenital hearing loss,
Speech impediment
hyperlipidemia
depression
gait dysfunction
PLan:
A/w abnormal labs, anemia and MAIDA
MAIDA-bland UA, with high BNP and CHF may be cardiorenal , non oliguric
however given anemia-sent paraprotein w/u
await renal US and follow bladder scan report
Bp stable
avoid nephrotoxins
would cont lasix for now , echo normal EF
follow h/h, prn transfusion , no GI intervention noted
adequate fe stores and vit b12 borderline low
on 11/02 d/w sister, who states no dialysis if renal function worsens
-
-
Date of Service: November 03, 2024
CC / HPI / ROS
-
Chief Complaint:
MAIDA
History of Present Illness:
cr is up at 3.6, wt is down
plt improving to 123, hb better 7.6
bp stable
Review of Systems:
no cp or sob at rest
feels well
no n/v
Labs
-
Labs:
WBC 3.7 10^3/uL (4.8-10.8) L 11/03/24 08:16
RBC 2.30 10^6/uL (4.70-6.10) L 11/03/24 08:16
Hgb 7.6 g/dL (13.0-18.0) L 11/03/24 08:16
Hct 22.5 % (39.0-52.0) L 11/03/24 08:16
Plt Count 123 10^3/uL (130-400) L 11/03/24 08:16
Sodium 137 mmol/L (135-145) 11/03/24 08:16
Potassium 4.9 mmol/L (3.5-5.1) 11/03/24 08:16
Chloride 109 mmol/L (98-107) H 11/03/24 08:16
Carbon Dioxide 23 mmol/L (22-30) 11/03/24 08:16
BUN 61 mg/dl (9-20) H 11/03/24 08:16
Creatinine 3.6 mg/dL (0.7-1.3) H 11/03/24 08:16
eGFR 15.76 11/03/24 08:16
Glucose 78 mg/dl (70-99) 11/03/24 08:16
Calcium 9.0 mg/dl (8.4-10.2) 11/03/24 08:16
Ino-V-Hunnjetnytm Pept 12014 pg/ml 11/01/24 14:34
Albumin 2.5 g/dl (3.5-5.0) L 11/03/24 08:16
Physical Exam
-
Vital Signs:
Vital Signs
Temp Pulse Resp BP Pulse Ox
97.4 F 58 18 136/63 99
11/03/24 15:25 11/03/24 15:28 11/03/24 15:25 11/03/24 15:28 11/03/24 15:25
Cardiovascular:: Regular rate and rhythm
Respiratory:: Bilateral: Coarse
Lung Excursion:: Normal
Abdomen:: Nontender and Soft
Extremity Edema:: None: Bilateral:
Gage Catheter: No
[2024-11-04] VITALS (7 sets, daily range): BP systolic 129–154; BP diastolic 64–89; PULSE 58; O2SAT 99; BMI 21.1
[2024-11-04 07:39] LABS: Hematocrit 23.1 % (39.0-52.0); Hemoglobin 7.9 g/dL (13.0-18.0); Mean Corp Hgb Conc. 34.2 g/dL (33.0-37.0); Mean Corpuscular Volume 99.1 fL (80.0-94.0); Platelet Count 132 10^3/uL (130-400); Red Cell Dist. Width 16.1 % (11.5-14.5)
[2024-11-04 07:40] LABS: Blood Urea Nitrogen 58 mg/dl (9-20); Calcium 8.8 mg/dl (8.4-10.2); Carbon Dioxide 25 mmol/L (22-30); Chloride 108 mmol/L (98-107); Estimated Creatinine Clearance 13 ml/min; Glucose 78 mg/dl (70-99); Magnesium 1.9 mg/dl (1.6-2.3); Potassium 4.4 mmol/L (3.5-5.1); Sodium 137 mmol/L (135-145); eGFR 14.77
--- NOTE | 2024-11-04 09:04 | W.PN.CD ---
Today's Communication / Plan
-
- Nephrology following; Lasix decreased from 40 mg IV twice daily to 40 mg IV once daily--creatinine up from 3.6 yesterday to 3.8 today.
Impression / Plan
-
Anemia, GIB:
-GI consulted
-s/p 1 unit PRBC
-on PPI drip
Szibj-fz-wwdoyew HFpEF:
-in setting of anemia and MAIDA
-weight up from last hospitalization and evidence for excess volume on CXR. Also with JVD and abdominal bloating. Of note, he was d/c'd home with lasix 40 mg PO daily at last hospitalization here, but it is not on his medicine list.
- LVEF 65-70% on echocardiogram; no significant valvular disease.
- Nephrology following; Lasix decreased from 40 mg IV twice daily to 40 mg IV once daily--creatinine up from 3.6 yesterday to 3.8 today.
MAIDA:
-Continue to monitor renal function with IV diuresis; creatinine up from 3.6 yesterday to 3.8 today.
-Nephrology following.
Pleural effusion:
- Status-post right thoracentesis with 1350 cc removed 11/02/24.
CAD with hx stenting:
-was on DAPT in past, but stopped last admit when Eliquis was added for DVT
-should at least be on ASA, but will not add right now with acute bleed- add as soon as able
-trop WNL, no CP
Hx DVT:
-previously on Eliquis, management per primary; held in setting of severe anemia with hemoglobin of 6.7.
COPD:
- Currently stable.
Right eye discharge:
-Management per primary
Physical Exam
Vital Signs/Labs
Vital Signs
Temp Pulse Resp BP Pulse Ox
97.6 F 65 16 133/64 96
11/04/24 07:59 11/04/24 07:59 11/04/24 07:59 11/04/24 07:59 11/04/24 07:59
11/03/24 11/04/24 11/05/24
06:59 06:59 06:59
Actual Weight 68.402 kg 64.909 kg
11/04/24 06:30
11/04/24 06:30
Magnesium 1.9 mg/dl (1.6-2.3) 11/04/24 06:30
11/01/24
14:34
Frl-I-Wbmtwdzogco Pept [id number]
LAB Results
11/01/24
14:34
Troponin I < 0.012
Physical Exam
Constitutional: No acute distress and Comfortable
EENT: Anicteric
Cardiovascular: Rhythm & rate is regular, Pedal edema is absent, Systolic murmur present (2/6) and S1S2 is normal
Respiratory: Respiratory effort normal and Lungs clear to auscul.
GI: Soft
Neuro/Psych: Other (Somnolent this a.m.)
Other: Skin (Warm, dry)
Data Reviewed
-
Date of Service: November 04, 2024
EKG: Report Reviewed by me (Telemetry: Sinus rhythm, PVCs)
Echo: Report Reviewed by me (EF 65-70%)
Labs: Labs Reviewed by me
[2024-11-04] MEDS: FOLVITE 1 MG PO (09:36)
[2024-11-04] MEDS: CYMBALTA DELAYED RELEASE 20 MG PO (09:36)
[2024-11-04] MEDS: VITAMIN B-12 1000 MCG PO (09:36)
[2024-11-04] MEDS: PROSCAR 5 MG PO (09:37)
[2024-11-04] MEDS: PROTONIX 40 MG PO (09:37)
[2024-11-04] MEDS: LASIX 40 MG IV (09:38)
[2024-11-04] MEDS: REFRESH CELLUVISC GEL 1 DROPS BOTH EYES ×2 (09:39→20:55)
[2024-11-04] MEDS: ERYTHROMYCIN 0.5% OPHTHALMIC OINTMENT 1 APPLIC RIGHT EYE ×4 (09:40→23:08)
--- NOTE | 2024-11-04 11:20 | W.PN.NEPH.PH ---
Today's Communication / Plan
-
lasix
Assessment/Plan
-
IMP:
Acute on chronic anemia
MAIDA, unclear cause-cr 0.9 in 04/2024
Worsening right pleural effusion with elevated proBNP
Acute hypoxic respiratory insufficiency
Possible acute on chronic heart failure with preserved ejection fraction
h/o right leg DVT, was on Eliquis
CAD s/p LAD PCI (2012)
COPD, stable
GERD
H/O CVA, Unclear etiology
Congenital hearing loss,
Speech impediment
hyperlipidemia
depression
gait dysfunction
PLan:
follow BMP
on lower dose lasix
may be able to switch to po tomorrow
follow hgb
on 11/02 d/w sister, who states no dialysis if renal function worsens
-
-
Date of Service: November 04, 2024
CC / HPI / ROS
-
Chief Complaint:
MAIDA
History of Present Illness:
MAIDA/Cr higher at 3.8
Hgb low stable 7.9
plts up to 132
bp stable
on IV lasix for decompensated HFpEF
Review of Systems:
no cp or sob at rest
feels well
no n/v
Labs
-
Labs:
WBC 3.8 10^3/uL (4.8-10.8) L 11/04/24 06:30
RBC 2.33 10^6/uL (4.70-6.10) L 11/04/24 06:30
Hgb 7.9 g/dL (13.0-18.0) L 11/04/24 06:30
Hct 23.1 % (39.0-52.0) L 11/04/24 06:30
Plt Count 132 10^3/uL (130-400) 11/04/24 06:30
Sodium 137 mmol/L (135-145) 11/04/24 06:30
Potassium 4.4 mmol/L (3.5-5.1) 11/04/24 06:30
Chloride 108 mmol/L (98-107) H 11/04/24 06:30
Carbon Dioxide 25 mmol/L (22-30) 11/04/24 06:30
BUN 58 mg/dl (9-20) H 11/04/24 06:30
Creatinine 3.8 mg/dL (0.7-1.3) H 11/04/24 06:30
eGFR 14.77 11/04/24 06:30
Glucose 78 mg/dl (70-99) 11/04/24 06:30
Calcium 8.8 mg/dl (8.4-10.2) 11/04/24 06:30
Rmq-B-Cmmsqtiebqe Pept 88757 pg/ml 11/01/24 14:34
Albumin 2.5 g/dl (3.5-5.0) L 11/03/24 08:16
Physical Exam
-
Vital Signs:
Vital Signs
Temp Pulse Resp BP Pulse Ox
97.6 F 65 16 133/64 96
11/04/24 07:59 11/04/24 09:38 11/04/24 07:59 11/04/24 09:38 11/04/24 07:59
Cardiovascular:: Regular rate and rhythm
Respiratory:: Bilateral: Coarse
Lung Excursion:: Normal
Abdomen:: Nontender and Soft
Bowel Sounds:: Normal
Extremity Edema:: +1: Bilateral:
--- NOTE | 2024-11-04 14:45 | PTOTSP ---
Speech Language Pathology
VIDEOFLUOROSCOPIC SWALLOWING EXAMINATION (VSE) completed. Pt with mild oral and moderate pharyngeal dysphagia. Mostly trace pharyngeal residue noted. Silent aspiration noted with consecutive straw sips of thin liquids.
Recommend:
(1) Continue IDDSI Level 6 (soft/bite-sized) and thin liquids
(2) Aspiration precautions: sit upright, single cup sips only (no straws), slow rate, intermittent cough/reswallow
(3) Meds whole in puree
(4) OYSTER SHUCKER to continue to follow
--- NOTE | 2024-11-04 15:58 | CM ---
Addendum entered by Lindsay Marquez 11/04/24 16:14:
Patient sister spoke with CM and is aware of plan for potential discharge thursday pending physician assessment. Per sister her email is [email or web address] and she is aware of discharge plan, will need to email to patient sister IMM. Physician also
updated patient sister with medical information. CM will continue to follow for discharge planning needs.
Original Note:
Patient seen at bedside on . Patient is from [facility] and per Evan, facility liaison at [facility] Patient can return over weekend with update to expedition supervisor. Patient will need auth to be initiated with [employer] and [facility] #[id number] Tax ID is #[id number].
Patient will be going to Dr. Pisano npi #[id number]. However, Facility will accept patient back with pending reference number. Please call [phone] weekend nurse expedition supervisor. Patient will need to have IMM completed with patient sister. CM will
continue to follow for discharge planning needs.
Plan; SNF; [facility] when medically appropriate.
--- NOTE | 2024-11-04 16:12 | W.PN.HOSP.TC ---
Today's Communication/Plan
-
transitioning to oral lasix
anticipate d/c Thursday
Assessment / Plan
Assessment / Plan
pt is an 84 year old male
Acute on chronic anemia--doubt GI bleeding--apprec input--studies more c/w anemia of chronic disease--s/p 1 unit pRBCs--B12 and folate both low normal--replete both
MAIAD, unclear cause--Serum creatinine in the 3 range from baseline 0.9--apprec renal--renal US reviewed--no cause found
pancytopenia--unclear cause--follow
Worsening right pleural effusion with elevated proBNP with Acute hypoxic respiratory insufficiency--Possible acute on chronic heart failure with preserved ejection fraction--consult IR for right thoracentesis (studies ordered)--cont speech--?
aspiration--wean O2--diuresis--echo with preserved EF and diastolic dysfunction--apprec cards--continuing diuresis
Recent Acute right leg DVT, was on Eliquis--Eliquis not shown on home med rec
CAD s/p LAD PCI (2012)--Home med rec does not show that patient is on any antiplatelet
COPD, stable
GERD
H/O CVA, Unclear etiology--appears to have R sided weakness
wounds (POA)--stage 1 sacrum pressure injury
DVT proph--SCD
CODE STATUS-- DNR noted from last admission
Anticipated Discharge: 24 - 48 hours
Subjective/Interval History
-
Date of Service: November 04, 2024
pt without c/o
Objective Data
-
Labs:
Laboratory Results
11/04/24
06:30
WBC 3.8 L
Hgb 7.9 L
Hct 23.1 L
Plt Count 132
Sodium 137
Potassium 4.4
Chloride 108 H
Carbon Dioxide 25
BUN 58 H
Creatinine 3.8 H
Glucose 78
Calcium 8.8
Vital Signs:
max temp for 24 hours
11/03/24
23:24
Temp 97.7 F
Vital Signs
Temp Pulse Resp BP Pulse Ox
97.3 F 61 16 143/81 100
11/04/24 15:45 11/04/24 15:45 11/04/24 15:45 11/04/24 15:45 11/04/24 15:45
I&O
11/03/24 11/04/24 11/05/24
06:59 06:59 06:59
Intake Total 1680 / 1680 675 / 675
Output Total 650 / 650 890 / 890
Balance 1030 / 1030 -215 / -215
Review of Systems
-
All other systems: Reviewed and negative
Physical Exam
-
General: Appears Chronically Ill
HEENT: Normocephalic and Atraumatic; Negative Oxygen
Respiratory: Rhonchi (raspy breath sounds)
Cardiac: Regular Rhythm and S1/S2; Negative Murmur
GI: Soft, Nontender, Nondistended and Normal Bowel Sounds
Musculoskeletal: No Clubbing, No Cyanosis and No Edema
Neuro: Awake
Psych: Calm
[2024-11-05 03:06] VITALS: BP 125/70
[2024-11-05 06:00] VITALS: BMI 21.1
[2024-11-05 06:56] LABS: Hematocrit 23.3 % (39.0-52.0); Hemoglobin 8.0 g/dL (13.0-18.0); Mean Corp Hgb Conc. 34.3 g/dL (33.0-37.0); Mean Corpuscular Volume 98.3 fL (80.0-94.0); Platelet Count 125 10^3/uL (130-400); Red Cell Dist. Width 15.6 % (11.5-14.5)
[2024-11-05 07:18] LABS: Blood Urea Nitrogen 61 mg/dl (9-20); Calcium 9.2 mg/dl (8.4-10.2); Carbon Dioxide 29 mmol/L (22-30); Chloride 104 mmol/L (98-107); Estimated Creatinine Clearance 14 ml/min; Glucose 81 mg/dl (70-99); Potassium 4.2 mmol/L (3.5-5.1); Sodium 135 mmol/L (135-145); eGFR 15.76
[2024-11-05 07:38] VITALS: BP 141/69
[2024-11-05] MEDS: VITAMIN B-12 1000 MCG PO (08:58)
[2024-11-05] MEDS: REFRESH CELLUVISC GEL 1 DROPS BOTH EYES ×2 (08:58→21:45)
[2024-11-05] MEDS: PROSCAR 5 MG PO (08:58)
[2024-11-05] MEDS: FOLVITE 1 MG PO (08:58)
[2024-11-05] MEDS: PROTONIX 40 MG PO (08:58)
[2024-11-05] MEDS: CYMBALTA DELAYED RELEASE 20 MG PO (08:58)
[2024-11-05] MEDS: ERYTHROMYCIN 0.5% OPHTHALMIC OINTMENT 1 APPLIC RIGHT EYE ×4 (08:59→21:45)
--- NOTE | 2024-11-05 09:30 | W.PN.HOSP.TC ---
Today's Communication/Plan
-
anticipate d/c back to SNF tomorrow
Assessment / Plan
Assessment / Plan
pt is an 84 year old male
Acute on chronic anemia--doubt GI bleeding--apprec input--studies more c/w anemia of chronic disease--s/p 1 unit pRBCs--B12 and folate both low normal--replete both
MAIDA, unclear cause--Serum creatinine in the 3 range from baseline 0.9--apprec renal--renal US reviewed--no cause found--maybe new baseline?
pancytopenia--unclear cause--follow
Worsening right pleural effusion with elevated proBNP with Acute hypoxic respiratory insufficiency--Possible acute on chronic heart failure with preserved ejection fraction--consult IR for right thoracentesis (studies ordered)--cont speech--?
aspiration--wean O2--diuresis--echo with preserved EF and diastolic dysfunction--apprec cards--continuing diuresis
Recent Acute right leg DVT, was on Eliquis--Eliquis not shown on home med rec
CAD s/p LAD PCI (2012)--Home med rec does not show that patient is on any antiplatelet
COPD, stable
GERD
H/O CVA, Unclear etiology--appears to have R sided weakness
wounds (POA)--stage 1 sacrum pressure injury
DVT proph--SCD
CODE STATUS-- DNR noted from last admission
Anticipated Discharge: Within 24 hours
Subjective/Interval History
-
Date of Service: November 05, 2024
pt without c/o
Objective Data
-
Labs:
Laboratory Results
11/05/24
06:38
WBC 3.5 L
Hgb 8.0 L
Hct 23.3 L
Plt Count 125 L
Sodium 135
Potassium 4.2
Chloride 104
Carbon Dioxide 29
BUN 61 H
Creatinine 3.6 H
Glucose 81
Calcium 9.2
Vital Signs:
max temp for 24 hours
11/05/24
03:06
Temp 97.9 F
Vital Signs
Temp Pulse Resp BP Pulse Ox
97.5 F 56 16 141/69 97
11/05/24 07:38 11/05/24 07:38 11/05/24 07:38 11/05/24 07:38 11/05/24 07:38
I&O
11/04/24 11/05/24 11/06/24
06:59 06:59 06:59
Intake Total 675 / 675 1200 / 1200
Output Total 890 / 890 325 / 325
Balance -215 / -215 875 / 875
Review of Systems
-
All other systems: Reviewed and negative
Physical Exam
-
General: Appears Chronically Ill
HEENT: Normocephalic and Atraumatic; Negative Oxygen
Respiratory: Rhonchi (raspy breath sounds)
Cardiac: Regular Rhythm and S1/S2; Negative Murmur
GI: Soft, Nontender, Nondistended and Normal Bowel Sounds
Musculoskeletal: No Clubbing, No Cyanosis and No Edema
Psych: Calm
--- NOTE | 2024-11-05 10:31 | CM ---
[employer] Auth started.
Reference # [id number]
Call Reference # [id number]
Clinicals were faxed to [phone]
--- NOTE | 2024-11-05 10:55 | W.PN.CD ---
Addendum entered and electronically signed by Jeff Fisher MD 11/05/24 12:20:
I saw and evaluated the patient, and I provided the substantive portion of the medical decision making.
I reviewed and agree with the note by Ms Carl and it accurately reflects our care.
I personally performed the medical decision making of the this encounter and my assessment and plan is below:
Back on PO lasix
No new recommendations
We will sign off; he should f/u with outpt it manager Adolfo Monzon
Original Note:
Today's Communication / Plan
-
lasix 40mg po daily ordered.
Follow creat.
OP follow up with his it manager Adolfo Monzon.
Impression / Plan
-
Primary Seed Tester: Damian Monzon
Anemia, chronic:
-s/p PRBC
Dyatc-nu-ywkfyve HFpEF:
-in setting of anemia and MAIDA
-weight up from last hospitalization and evidence for excess volume on CXR. Also with JVD and abdominal bloating. Of note, he was d/c'd home with lasix 40 mg PO daily at last hospitalization here, but it is not on his medicine list.
- LVEF 65-70% on echocardiogram; no significant valvular disease.
-weight on admit 71 kg now down to 64.7 kg
- Nephrology following; plan was to consider po lasix starting today. creat 3.6 ( 3.2-3.8)
MAIDA:
nephrology following.
Pleural effusion:
- Status-post right thoracentesis with 1350 cc removed 11/02/24.
CAD with hx stenting:
-was on DAPT in past, but stopped last admit when Eliquis was added for DVT
-should at least be on ASA, but will not add right now with acute bleed- add as soon as able
-trop WNL, no CP
Hx DVT:
-previously on Eliquis, management per primary; held in setting of severe anemia with hemoglobin of 6.7.
COPD:
- Currently stable.
Right eye discharge:
-Management per primary
Physical Exam
Vital Signs/Labs
Vital Signs
Temp Pulse Resp BP Pulse Ox
97.5 F 56 16 141/69 97
11/05/24 07:38 11/05/24 07:38 11/05/24 07:38 11/05/24 07:38 11/05/24 07:38
11/04/24 11/05/24 11/06/24
06:59 06:59 06:59
Actual Weight 64.909 kg 64.773 kg
11/05/24 06:38
11/05/24 06:38
Magnesium 1.9 mg/dl (1.6-2.3) 11/04/24 06:30
11/01/24
14:34
Cho-B-Qmahjnkqeyf Pept [id number]
Physical Exam
Constitutional: No acute distress
Cardiovascular: Rhythm & rate is regular, Pedal edema is absent and S1S2 is normal
Respiratory: Respiratory effort normal and Lungs clear to auscul. (decreased bases)
GI: Soft, Non tender and Normal bowel sounds
Neuro/Psych: Alert
Data Reviewed
-
Date of Service: November 05, 2024
EKG: Other (Tele: NSR 40-50's )
[2024-11-05 11:55] VITALS: BP 130/73
[2024-11-05] MEDS: LASIX 40 MG PO (13:06)
--- NOTE | 2024-11-05 14:42 | W.PN.NEPH.PH ---
Today's Communication / Plan
-
dc planning
Assessment/Plan
-
IMP:
Acute on chronic anemia
MAIDA, unclear cause-cr 0.9 in 04/2024
Worsening right pleural effusion with elevated proBNP
Acute hypoxic respiratory insufficiency
Possible acute on chronic heart failure with preserved ejection fraction
h/o right leg DVT, was on Eliquis
CAD s/p LAD PCI (2012)
COPD, stable
GERD
H/O CVA, Unclear etiology
Congenital hearing loss,
Speech impediment
hyperlipidemia
depression
gait dysfunction
PLan:
follow BMP
on po lasix
for dc tomorrow
on 11/02 d/w sister, who states no dialysis if renal function worsens
-
-
Date of Service: November 05, 2024
CC / HPI / ROS
-
Chief Complaint:
MAIDA
History of Present Illness:
MAIDA/Cr down to 3.6
Hgb low stable 8.0
BP stable
on po lasix for decompensated HFpEF
Review of Systems:
no cp or sob at rest
feels well
no n/v
Labs
-
Labs:
WBC 3.5 10^3/uL (4.8-10.8) L 11/05/24 06:38
RBC 2.37 10^6/uL (4.70-6.10) L 11/05/24 06:38
Hgb 8.0 g/dL (13.0-18.0) L 11/05/24 06:38
Hct 23.3 % (39.0-52.0) L 11/05/24 06:38
Plt Count 125 10^3/uL (130-400) L 11/05/24 06:38
Sodium 135 mmol/L (135-145) 11/05/24 06:38
Potassium 4.2 mmol/L (3.5-5.1) 11/05/24 06:38
Chloride 104 mmol/L (98-107) 11/05/24 06:38
Carbon Dioxide 29 mmol/L (22-30) 11/05/24 06:38
BUN 61 mg/dl (9-20) H 11/05/24 06:38
Creatinine 3.6 mg/dL (0.7-1.3) H 11/05/24 06:38
eGFR 15.76 11/05/24 06:38
Glucose 81 mg/dl (70-99) 11/05/24 06:38
Calcium 9.2 mg/dl (8.4-10.2) 11/05/24 06:38
Che-L-Exwlepwvcez Pept 98616 pg/ml 11/01/24 14:34
Albumin 2.5 g/dl (3.5-5.0) L 11/03/24 08:16
Physical Exam
-
Vital Signs:
Vital Signs
Temp Pulse Resp BP Pulse Ox
97.4 F 57 16 130/73 100
11/05/24 11:55 11/05/24 11:55 11/05/24 11:55 11/05/24 11:55 11/05/24 11:55
Cardiovascular:: Regular rate and rhythm
Respiratory:: Bilateral: Coarse
Lung Excursion:: Normal
Abdomen:: Nontender and Soft
Bowel Sounds:: Normal
Extremity Edema:: None: Bilateral:
[2024-11-05 15:27] VITALS: BP 138/78
[2024-11-05 19:00] VITALS: BP 130/72
[2024-11-05 23:25] VITALS: BP 130/73
[2024-11-06 03:05] VITALS: BP 124/70
[2024-11-06 06:00] VITALS: BMI 21.2
[2024-11-06 07:15] LABS: Blood Urea Nitrogen 68 mg/dl (9-20); Calcium 9.0 mg/dl (8.4-10.2); Carbon Dioxide 24 mmol/L (22-30); Chloride 105 mmol/L (98-107); Estimated Creatinine Clearance 14 ml/min; Glucose 77 mg/dl (70-99); Potassium 4.2 mmol/L (3.5-5.1); Sodium 135 mmol/L (135-145); eGFR 16.30
[2024-11-06 07:52] VITALS: BP 114/60
[2024-11-06 08:36] LABS: 24 Hour Urine Total Volume Random mL; Urine Collection Length Random hr
--- NOTE | 2024-11-06 09:14 | W.PN.HOSP.TC ---
Today's Communication/Plan
-
plan for d/c to SNF if OK with renal now that ADÁN positive
Assessment / Plan
Assessment / Plan
pt is an 84 year old male
Acute on chronic anemia--doubt GI bleeding--apprec input--studies more c/w anemia of chronic disease--s/p 1 unit pRBCs--B12 and folate both low normal--replete both
MAIDA--Serum creatinine in the 3 range from baseline 0.9--apprec renal--renal US reviewed--urine immunofixation positive for monoclonal free kappa light chains--SPEP pending
pancytopenia--? MM--follow
Worsening right pleural effusion with elevated proBNP with Acute hypoxic respiratory insufficiency--Possible acute on chronic heart failure with preserved ejection fraction--apprec IR right thoracentesis for 1350 exudative effusion--path
pending--apprec speech--wean O2--diuresis now oral--echo with preserved EF and diastolic dysfunction--apprec cards
Recent Acute right leg DVT, was on Eliquis--Eliquis not shown on home med rec
CAD s/p LAD PCI (2012)--Home med rec does not show that patient is on any antiplatelet
COPD, stable
GERD
H/O CVA, Unclear etiology--appears to have R sided weakness
wounds (POA)--stage 1 sacrum pressure injury
DVT proph--SCD
CODE STATUS-- DNR noted from last admission
Anticipated Discharge: Today
Subjective/Interval History
-
Date of Service: November 06, 2024
pt without c/o
Objective Data
-
Labs:
Laboratory Results
11/06/24
06:32
Sodium 135
Potassium 4.2
Chloride 105
Carbon Dioxide 24
BUN 68 H
Creatinine 3.5 H
Glucose 77
Calcium 9.0
Vital Signs:
max temp for 24 hours
11/06/24
03:05
Temp 98.6 F
Vital Signs
Temp Pulse Resp BP Pulse Ox
97.6 F 61 16 114/60 96
11/06/24 07:52 11/06/24 07:52 11/06/24 07:52 11/06/24 07:52 11/06/24 07:52
I&O
11/05/24 11/06/24 11/07/24
06:59 06:59 06:59
Intake Total 1200 / 1200 1020 / 1020
Output Total 325 / 325 700 / 700 200 / 200
Balance 875 / 875 320 / 320 -200 / -200
Review of Systems
-
All other systems: Reviewed and negative
Physical Exam
-
General: Appears Chronically Ill
HEENT: Normocephalic and Atraumatic; Negative Oxygen
Respiratory: Clear to Auscultation; Negative Wheezes or Rhonchi
Cardiac: Regular Rhythm and S1/S2; Negative Murmur
GI: Soft, Nontender, Nondistended and Normal Bowel Sounds
Musculoskeletal: No Clubbing, No Cyanosis and No Edema
Neuro: Awake
Psych: Calm
[2024-11-06 09:31] VITALS: BP 133/68; PULSE 65; O2SAT 95
[2024-11-06] MEDS: PROTONIX 40 MG PO (09:42)
[2024-11-06] MEDS: LASIX 40 MG PO (09:42)
[2024-11-06] MEDS: CYMBALTA DELAYED RELEASE 20 MG PO (09:42)
[2024-11-06] MEDS: REFRESH CELLUVISC GEL 1 DROPS BOTH EYES (09:43)
[2024-11-06] MEDS: VITAMIN B-12 1000 MCG PO (09:43)
[2024-11-06] MEDS: FOLVITE 1 MG PO (09:43)
[2024-11-06] MEDS: PROSCAR 5 MG PO (09:43)
[2024-11-06] MEDS: ERYTHROMYCIN 0.5% OPHTHALMIC OINTMENT 1 APPLIC RIGHT EYE (09:47)
--- NOTE | 2024-11-06 10:32 | W.PN.NEPH.PH ---
Today's Communication / Plan
-
dc
Assessment/Plan
-
IMP:
Acute on chronic anemia
MAIDA, unclear cause-cr 0.9 in 04/2024
Worsening right pleural effusion with elevated proBNP
Acute hypoxic respiratory insufficiency
Possible acute on chronic heart failure with preserved ejection fraction
h/o right leg DVT, was on Eliquis
CAD s/p LAD PCI (2012)
COPD, stable
GERD
H/O CVA, Unclear etiology
Congenital hearing loss,
Speech impediment
hyperlipidemia
depression
gait dysfunction
PLan:
follow BMP
on po lasix
for dc
will need to see heme for UPEP +IgG M light chain M spike. I doubt treatment will be offered given his clinical scenario
on 11/02 d/w sister, who states no dialysis if renal function worsens
-
-
Date of Service: November 06, 2024
CC / HPI / ROS
-
Chief Complaint:
MAIDA
History of Present Illness:
MAIDA/Cr down to 3.5
Hgb low stable 8.0
BP stable
on po lasix for decompensated HFpEF
Review of Systems:
no cp or sob at rest
feels well
no n/v
Labs
-
Labs:
WBC 3.5 10^3/uL (4.8-10.8) L 11/05/24 06:38
RBC 2.37 10^6/uL (4.70-6.10) L 11/05/24 06:38
Hgb 8.0 g/dL (13.0-18.0) L 11/05/24 06:38
Hct 23.3 % (39.0-52.0) L 11/05/24 06:38
Plt Count 125 10^3/uL (130-400) L 11/05/24 06:38
Sodium 135 mmol/L (135-145) 11/06/24 06:32
Potassium 4.2 mmol/L (3.5-5.1) 11/06/24 06:32
Chloride 105 mmol/L (98-107) 11/06/24 06:32
Carbon Dioxide 24 mmol/L (22-30) 11/06/24 06:32
BUN 68 mg/dl (9-20) H 11/06/24 06:32
Creatinine 3.5 mg/dL (0.7-1.3) H 11/06/24 06:32
eGFR 16.30 11/06/24 06:32
Glucose 77 mg/dl (70-99) 11/06/24 06:32
Calcium 9.0 mg/dl (8.4-10.2) 11/06/24 06:32
Xqo-I-Abkyencvmsd Pept 88779 pg/ml 11/01/24 14:34
Albumin 2.5 g/dl (3.5-5.0) L 11/03/24 08:16
Physical Exam
-
Vital Signs:
Vital Signs
Temp Pulse Resp BP Pulse Ox
97.6 F 61 16 114/60 96
11/06/24 07:52 11/06/24 07:52 11/06/24 07:52 11/06/24 07:52 11/06/24 07:52
Cardiovascular:: Regular rate and rhythm
Respiratory:: Bilateral: Coarse
Lung Excursion:: Normal
Abdomen:: Nontender and Soft
Bowel Sounds:: Normal
Extremity Edema:: None: Bilateral:
[2024-11-06 11:13] VITALS: BP 118/66
--- NOTE | 2024-11-06 12:43 | CM ---
Pt for dc to [facility] today
Transport paperwork completed and IMM issued to sister
Report # [phone] weekend nurse steamfitter supervisor
--- NOTE | 2024-11-06 13:42 | W.DCSUMMARY ---
Discharge Summary
Discharge Data
Date of Admission: 11/01/24
Date of Discharge: 11/06/24
-
Pending Results: Yes
Additional Pending Results:
SPEP
cytology from pleural fluid
Hospital Course
Primary care physician : Stew Pisano
Principal Discharge diagnosis : Acute on chronic anemia, acute kidney injury with pancytopenia, worsening right pleural effusion
Chronic Discharge diagnosis : Recent acute right leg deep venous thrombosis, coronary artery disease status post LAD PCI 2012, chronic obstructive pulmonary disease, gastroesophageal reflux disease, history of stroke, stage I sacral pressure injury
present on admission
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 His
hemoglobin was also found to be 6.7 and creatinine was 3.2 from baseline at 0.9. Patient was admitted.
Problem #1: Acute on chronic anemia. Iron studies were consistent with more chronic disease. GI was consulted and they did not feel that this was GI bleeding so procedures were not offered. He received 1 unit of packed red blood cells. B12 and
folate were both low and he was repleted with both. He will be sent on B12 and folate repletion to continue as an outpatient. As mentioned, his urine immunofixation is positive for monoclonal free kappa light chains. He should follow-up with
hematology.
Problem #2: Acute kidney injury with pancytopenia. Nephrology was consulted. Patient was diuresed but had no improvement in his creatinine which is in the mid 3 range. Baseline is 0.9. Renal ultrasound was reviewed which did not show any
significant cause for the acute kidney injury. Workup was undertaken for multiple myeloma and the urine immunofixation was positive for monoclonal free kappa light chains. SPEP is still pending. Renal was in contact with the patient's sister who
states that the patient would not want dialysis if his kidney function worsened. It is also very likely that he would not require or qualify for any treatment for the possibility of newly diagnosed multiple myeloma but should follow-up with
hematology for an opinion regardless.
Problem #3: Worsening right pleural effusion. Patient's proBNP was 13,500. IR was consulted for thoracentesis which yielded 1350 mL of serosanguineous pleural fluid. This was exudative in nature. Cytology is still pending at this time. Patient
was diuresed with improvement. He was seen in consultation by both renal and cardiology. He was weaned off oxygen.
Problem #4: All other medical issues. These include Recent acute right leg deep venous thrombosis, coronary artery disease status post LAD PCI 2012, chronic obstructive pulmonary disease, gastroesophageal reflux disease, history of stroke, stage I
sacral pressure injury present on admission. These medical issues were stable during his hospitalization. Medications were continued as able. In regards to his acute right leg deep venous thrombosis, records indicate that he is supposed to be on
Eliquis but it is not on his home medication list. Given his age and need for walker, he is a fall risk and therefore would not start at this time.
Patient is stable to return to his correction at this time. If there are any questions regarding this dictation or his hospital stay, please do not hesitate to call. Our office number is [phone].
Time for discharge 36 minutes.
Important imaging findings :
CHEST X-RAY IMPRESSION:
Moderate right pleural effusion, significantly increasing since previous examination.
RENAL US IMPRESSION:
There is significant post void residual with small bladder diverticula
There are bilateral pleural effusions right much larger than left
Procedure findings :
IMPRESSION: Successful ultrasound-guided thoracentesis, yielding 1350 cc of serosanguineous pleural fluid.
Discharge Plan
-
Patient Disposition: [facility]
Discharge Diagnosis/Procedures: Acute on chronic anemia, acute kidney injury, pancytopenia, worsening right pleural effusion with elevated proBNP, acute hypoxemic respiratory insufficiency, recent acute right leg deep venous thrombosis, coronary
artery disease status post LAD with PCI, chronic obstructive pulmonary disease, gastroesophageal reflux disease, history of stroke, stage I sacral pressure injury wound present on admission
Condition: Fair
Diet: As tolerated and Regular
Activity: As tolerated
Driving Restrictions: No driving
Bathing Restrictions: None
Activity Restrictions/Additional Instructions:
NEEDS appointment with hematology to discuss treatment options for presumed new diagnosis of multiple myeloma
Referrals:
UNKNOWN - PT NOT,INTERVIEWE [Family Provider] - in less than 1 week
Prescriptions:
New
cyanocobalamin (vitamin B-12) [Vitamin B-12] 500 mcg Tablet
1,000 mcg PO DAILY Qty: 0 0RF
pantoprazole 40 mg Tablet,Delayed Release (Dr/Ec)
40 mg PO DAILY Qty: 0 0RF
folic acid 1 mg Tablet
1 mg PO DAILY Qty: 0 0RF
furosemide 40 mg Tablet
40 mg PO DAILY Qty: 0 0RF
Continued
acetaminophen [Tylenol] 325 mg Tablet
650 mg PO Q4HPRN PRN (Reason: mild pain/fever>100.4)
magnesium hydroxide [Milk of Magnesia] 400 mg/5 mL Suspension
2,400 mg PO HSPRN PRN (Reason: constipation)
bisacodyl [Dulcolax (bisacodyl)] 10 mg Suppository
10 mg [place] [id number] PRN (Reason: if no bm after mom)
pyridoxine (vitamin B6) 100 mg Tablet
100 mg PO DAILY
albuterol sulfate 90 mcg/actuation Hfa Aerosol Inhaler
2 puff INHALATION R Q6HPRN PRN (Reason: sob)
ipratropium bromide 21 mcg (0.03 %) [place],Non-Aerosol
2 spray INTRANASAL BID
finasteride 5 mg Tablet
5 mg PO DAILY
Saline Nasal 0.65 % Aerosol,[place]
1 spray INTRANASAL QIDPRN PRN (Reason: dryness)
lactulose 10 gram/15 mL Solution
10 g PO DAILYPRN PRN (Reason: constipation )
calcium carbonate-vitamin D3 [Calcium 500 + D] 500 mg-10 mcg (400 unit) Tablet
1 tab PO DAILY
Refresh Optive 0.5-0.9 % Drops
1 drp BOTH EYES BID
sodium chloride 1,000 mg Tablet,Soluble
1,000 mg PO BID
ondansetron 4 mg Tablet,Disintegrating
4 mg PO Q8HPRN PRN (Reason: nausea)
lidocaine 4 % Adhesive Patch,Medicated
2 patch TOPICAL DAILY
Rx Instructions:
APPLY ONE PATCH TO ANTERIOR RIB CAGE AND 1 PATCH TO LEFT SIDE MID POSTERIOR RIB CAGE
duloxetine 20 mg Capsule,Delayed Release(Dr/Ec)
20 mg PO DAILY
omeprazole 20 mg Tablet,Delayed Release (Dr/Ec)
20 mg PO DAILY
polyethylene glycol 3350 17 gram powder in packet
17 g PO BID
sennosides-docusate sodium 8.6-50 mg tablet
2 tab PO BID
Discharge Orders:
Discharge Patient (As Directed); Ordered 11/06/24
Ordered By: Ayleen Rose
Discharge Date and Time
Print Language: SINHALA
[2024-11-06] MEDS: ERYTHROMYCIN 0.5% OPHTHALMIC OINTMENT RIGHT EYE (14:09)
== END 2024-11-06 15:27 | DRG 682 ==
LOC: 2 NORTH 17:52
PROVIDERS: Radiology Vascular & Interventional Radiology; Specialist; ADMITTING PHYSICIAN Internal Medicine; ATTENDING PHYSICIAN Internal Medicine; CONSULT PHYSICIAN Internal Medicine Gastroenterology; EMERGENCY PHYSICIAN Student in an Organized Health Care Education/Training Program; OTHER PHYSICIAN Internal Medicine; OTHER PHYSICIAN Internal Medicine Cardiovascular Disease
PROC: 30233N1 Transfusion of Nonautologous Red Blood Cells into Peripheral Vein, Percutaneous Approach (ICD-10-PCS; 2024-11-01)
PROC: 0W993ZZ Drainage of Right Pleural Cavity, Percutaneous Approach (ICD-10-PCS; 2024-11-02)
DX: N17.9 Acute kidney failure, unspecified (principal); I50.33 Acute on chronic diastolic (congestive) heart failure; D61.818 Other pancytopenia; E87.1 Hypo-osmolality and hyponatremia; C90.00 Multiple myeloma not having achieved remission; Z86.718 Personal history of other venous thrombosis and embolism; I25.10 Atherosclerotic heart disease of native coronary artery without angina pectoris; J44.9 Chronic obstructive pulmonary disease, unspecified; K21.9 Gastro-esophageal reflux disease without esophagitis; Z86.73 Personal history of transient ischemic attack (TIA), and cerebral infarction without residual deficits; Z95.5 Presence of coronary angioplasty implant and graft; L89.151 Pressure ulcer of sacral region, stage 1; H90.5 Unspecified sensorineural hearing loss; R09.02 Hypoxemia; I11.0 Hypertensive heart disease with heart failure; Z66 Do not resuscitate; F32.A Depression, unspecified; N40.0 Benign prostatic hyperplasia without lower urinary tract symptoms; Z88.0 Allergy status to penicillin; E78.00 Pure hypercholesterolemia, unspecified; E87.5 Hyperkalemia; K58.9 Irritable bowel syndrome, unspecified; Z79.899 Other long term (current) drug therapy
CPT/HCPCS: 32555; 36430; 71045; 74230; 76770; 80048; 80053; 81003; 81015; 82570; 82607; 82728; 82746; 82945; 82962; 83520; 83540; 83550; 83615; 83735; 83880; 83986; 84155; 84156; 84157; 84165; 84300; 84484; 85025; 85027; 86335; 86850; 86900; 86901; 86920; 87015; 87070; 87205; 88112; 88305; 88341; 88342; 89051; 92610; 92611; 93005; 93306; 94640; 96365; 96366; 96375; 97116; 97163; 97167; 97530; 99291; P9016

== ENCOUNTER 2024-11-25 17:37 | Inpatient (IN) | payer OTHER, SELFPAY ==
[2024-11-25] VITALS (13 sets, daily range): BP systolic 75–152; BP diastolic 60–87; BMI 23.3; BMI 22.4
--- NOTE | 2024-11-25 10:44 | ED.GENMED ---
History of Present Illness
<DANIEL Brooks - Last Filed: 11/25/24 15:11>
General
Chief Complaint: Abdominal Pain
Source: patient
Exam Limitations: none
Time Seen by Provider: 11/25/24 10:27
Nursing documentation reviewed up to this point in time: agreed with
History of Present Illness
History of Present Illness:
84-year-old male with past medical history of left-sided hemiplegia COPD history kidney failure chronic ischemic heart disease hyperlipidemia hypocalcemia depression right leg DVT, pleural effusion congenital hearing loss speech impediment sent
from [facility] sent for abdominal pain. Patient complains of generalized abdominal pain difficult historian.
Nurse at [facility] reports pt has been c/o of abd pain for past several days and has had decreased in appetite.
Past History
<DANIEL Brooks - Last Filed: 11/25/24 15:11>
Past History
ED Past Medical History: CAD, Hypercholesterolemia, Psychiatric (depression) and Other (congenital hearing loss, speech impediments, chronic L side weakness)
ED Past Surgical History: Cardiac (stent)
Social History
Tobacco: Non-smoker
Alcohol: None
Living: jail
Phy Exam
<DANIEL Brooks - Last Filed: 11/25/24 15:11>
General Physical Exam
General Presentation: no apparent distress
General Skin: warm and dry
General Habitus: elderly
General Mental: alert
General Hydration: dry mucous membranes
Cardiovascular Exam
Cardiovascular Exam: regular rate/rhythm, no murmur and normal peripheral pulses
Pulmonary Exam
Pulmonary Exam: no respiratory distress and other (mildly hypoxic rhinchi throughout )
Course
<DANIEL Brooks - Last Filed: 11/25/24 15:11>
Orders/Labs/Results
Orders:
Orders
11/25/24 10:44
Cardiac Monitoring- Treatment ONCE
IV Insert/Care/Rem.- Treatment PRN
11/25/24 10:46
Electrocardiogram (*1) Stat
Reason for Study: Abdominal Pain
EKG- Treatment ONCE
Chest [CR Chest - 2 Views ] Urgent
Comment:
Reason For Exam: cough
11/25/24 10:52
Complete Blood Count/With Diff Urgent
Comprehensive Metabolic Panel Urgent
LDH Urgent
Comment: ADD ON
Lipase Urgent
Urinalysis Reflex To Culture Urgent
Date Specimen was Collected: 11/25/24
Time Specimen was Collected: 10:46
Urine Microscopic Reflex Cult Urgent
11/25/24 11:33
CT Abd/pel Without Iv Or Oral Urgent
Comment:
Reason For Exam: abd pain (hx of renal insuff)
11/25/24 13:00
Bladder Scan- Treatment ONCE
11/25/24 13:03
Furosemide [Lasix] 40 mg IV NOW STA
11/25/24 13:57
Cefepime HCl [Maxipime] 2,000 mg IV NOW STA
11/25/24 14:14
IRAD CONSULT Urgent
Consulting Provider: Randall Calles
Was physician already notified: Yes
Procedure being ordered, including laterality if applicable: right sided effusion
Acknowledgement that appropriate orders are entered: Yes
11/25/24 14:20
Blood Culture Q30M
ARMIDA Source: Blood/Venous
Specimen Description:
Blood Culture Q30M
ARMIDA Source: Blood/Venous
Specimen Description:
11/25/24 15:00
Body Fluid Cell Count Routine
What is the Body Fluid: pleural
Body Fluid Glucose Routine
Fluid Source: Pleural
Body Fluid LDH Routine
Fluid Source: Pleural
Body Fluid Protein Routine
Fluid Source: Pleural
Body Fluid pH Routine
Fluid Source: Pleural
Fluid Culture with Gram Stain Routine
ARMIDA Source: Pleural Fluid
Specimen Description:
IRAD Cytology Routine
Source: Pleural Fluid, Right
Clinical Impression: Suspected malignant effusion, MM history
11/25/24 15:02
Add On- LAB Routine
Tests Added?: LDH serum
Abnormal Lab Results
11/25/24
10:52
WBC 4.0 L 10^3/uL
(4.8-10.8)
RBC 2.38 L 10^6/uL
(4.70-6.10)
Hgb 7.9 L g/dL
(13.0-18.0)
Hct 23.7 L %
(39.0-52.0)
MCV 99.6 H fL
(80.0-94.0)
MCH 33.2 H pg
(27.0-31.0)
RDW 16.1 H %
(11.5-14.5)
Absolute Lymphs (auto) 0.7 L 10^3/uL
(1.2-3.4)
Neutrophils % 75.9 H %
(42.2-75.2)
Lymphocytes % 16.4 L %
(20.5-51.1)
Chloride 110 H mmol/L
(98-107)
BUN 65 H mg/dl
(9-20)
Creatinine 3.6 H mg/dL
(0.7-1.3)
Total Protein 8.9 H g/dl
(6.3-8.2)
Albumin 2.9 L g/dl
(3.5-5.0)
Urine Bacteria (Reflex) Few A
(Negative)
Urine Albumin (Reflex) 2+ A
(Neg - Trace)
11/25/24 10:52
11/25/24 10:52
Vital Signs
Initial and Last Documented VS:
Initial Vital Signs
Pulse Resp Pulse Ox
73 46 93
11/25/24 10:28 11/25/24 10:28 11/25/24 10:28
Last Documented Vital Signs
Temp Pulse Resp BP Pulse Ox
97.8 F 76 23 131/73 94
11/25/24 10:36 11/25/24 14:30 11/25/24 14:30 11/25/24 14:10 11/25/24 14:30
Probate Lawyer consulted with Physician
Probate Lawyer consulted with physician?: Yes
Name of Physician Consulted: Shanti
<Amol Moser, DO - Last Filed: 11/25/24 13:02>
Orders/Labs/Results
Orders:
Orders
11/25/24 10:44
Cardiac Monitoring- Treatment ONCE
IV Insert/Care/Rem.- Treatment PRN
11/25/24 10:46
Electrocardiogram (*1) Stat
Reason for Study: Abdominal Pain
EKG- Treatment ONCE
Chest [CR Chest - 2 Views ] Urgent
Comment:
Reason For Exam: cough
11/25/24 10:52
Complete Blood Count/With Diff Urgent
Comprehensive Metabolic Panel Urgent
LDH Urgent
Comment: ADD ON
Lipase Urgent
Urinalysis Reflex To Culture Urgent
Date Specimen was Collected: 11/25/24
Time Specimen was Collected: 10:46
Urine Microscopic Reflex Cult Urgent
11/25/24 11:33
CT Abd/pel Without Iv Or Oral Urgent
Comment:
Reason For Exam: abd pain (hx of renal insuff)
11/25/24 13:00
Bladder Scan- Treatment ONCE
11/25/24 13:03
Furosemide [Lasix] 40 mg IV NOW STA
11/25/24 13:57
Cefepime HCl [Maxipime] 2,000 mg IV NOW STA
11/25/24 14:14
IRAD CONSULT Urgent
Consulting Provider: Randall Calles
Was physician already notified: Yes
Procedure being ordered, including laterality if applicable: right sided effusion
Acknowledgement that appropriate orders are entered: Yes
11/25/24 14:20
Blood Culture Q30M
ARMIDA Source: Blood/Venous
Specimen Description:
Blood Culture Q30M
ARMIDA Source: Blood/Venous
Specimen Description:
11/25/24 15:00
Body Fluid Cell Count Routine
What is the Body Fluid: pleural
Body Fluid Glucose Routine
Fluid Source: Pleural
Body Fluid LDH Routine
Fluid Source: Pleural
Body Fluid Protein Routine
Fluid Source: Pleural
Body Fluid pH Routine
Fluid Source: Pleural
Fluid Culture with Gram Stain Routine
ARMIDA Source: Pleural Fluid
Specimen Description:
IRAD Cytology Routine
Source: Pleural Fluid, Right
Clinical Impression: Suspected malignant effusion, MM history
11/25/24 15:02
Add On- LAB Routine
Tests Added?: LDH serum
Abnormal Lab Results
11/25/24
10:52
WBC 4.0 L 10^3/uL
(4.8-10.8)
RBC 2.38 L 10^6/uL
(4.70-6.10)
Hgb 7.9 L g/dL
(13.0-18.0)
Hct 23.7 L %
(39.0-52.0)
MCV 99.6 H fL
(80.0-94.0)
MCH 33.2 H pg
(27.0-31.0)
RDW 16.1 H %
(11.5-14.5)
Absolute Lymphs (auto) 0.7 L 10^3/uL
(1.2-3.4)
Neutrophils % 75.9 H %
(42.2-75.2)
Lymphocytes % 16.4 L %
(20.5-51.1)
Chloride 110 H mmol/L
(98-107)
BUN 65 H mg/dl
(9-20)
Creatinine 3.6 H mg/dL
(0.7-1.3)
Total Protein 8.9 H g/dl
(6.3-8.2)
Albumin 2.9 L g/dl
(3.5-5.0)
Urine Bacteria (Reflex) Few A
(Negative)
Urine Albumin (Reflex) 2+ A
(Neg - Trace)
11/25/24 10:52
11/25/24 10:52
Vital Signs
Initial and Last Documented VS:
Initial Vital Signs
Pulse Resp Pulse Ox
73 46 93
11/25/24 10:28 11/25/24 10:28 11/25/24 10:28
Last Documented Vital Signs
Temp Pulse Resp BP Pulse Ox
97.8 F 76 23 131/73 94
11/25/24 10:36 11/25/24 14:30 11/25/24 14:30 11/25/24 14:10 11/25/24 14:30
<DANIEL Brooks - Last Filed: 11/25/24 15:11>
MDM/Problems Addressed
Differential Diagnosis Includes:
Not limited to constipation by obstruction diverticulitis
MDM/Problems Addressed:
As documented patient is a 84-year-old male from [facility] presenting for abdominal discomfort. As per nurse patient has been complaining of abdominal pain discomfort the past 2 days with decreased appetite. Patient presents awake alert mild
nonspecific tenderness. Patient does have a history of renal failure renal insufficiency. Straight catheter was done on arrival, urine is negative for infection patient is afebrile white count 4.0. CAT scan does show moderate to large right
pleural effusion which has increased since February 2024 there is also numerous lytic lesions scattered at the skeleton increasing from February 2024 suggesting possible neoplastic disease. CAT scan also shows bilateral lipoid pneumonia. no fever no
elevation in wbc, will hold off on antibx. BUN and creatinine are elevated creatinine 3.6 however this is baseline.
Case d/c with interventional radiology consult placed they would likely be able to take patient today for drainage of effusion
Chronic conditions affecting care:
Intellectual disability, CHF CAD hypertension hyperlipidemia pleural effusion
<DANIEL Brooks - Last Filed: 11/25/24 15:11>
*Radiology
Radiology exam reviewed: radiology read reviewed
*Pulse Oximetry
SaO2: 93
Oxygen Mode of Delivery: Room air
Patient hypoxic: yes
*EKG
Interpreted by ED Provider?: Yes
Heart Rate: 72
Rate: normal
Rhythm: sinus
Ischemia: non-specific ST changes
*Critical Care Note
Total Time (30-74mins, 75-104mins- exclusive of procedures): Not Applicable
<DANIEL Brooks - Last Filed: 11/25/24 15:11>
Patient Management
Discussion with other providers: Claim Adjuster (Interventional radiology)
ED Attending Note
<DANIEL Brooks - Last Filed: 11/25/24 15:11>
-
Portions of this chart may have been created with voice recognition software.� Occasional wrong word or��sound alike� substitutions may have occurred due to the inherent limitations of voice recognition software.
<Amol Moser DO - Last Filed: 11/25/24 13:02>
ED Attending Note
Patient seen and examined by attending physician: Yes
I performed the substantive portion of visit, reviewed & personally made and approve the management plan that is documented in note by myself or DANIA.: Yes
ED Attending Note:
84-year-old male who presents with abdominal pain distention. Found to have a large right-sided pleural effusion. CT imaging pending. Afebrile. Likely will need thoracentesis. Anticipate admission
Discharge Plan
Departure
Patient Disposition: Admit
Date of Disposition: 11/25/24
Time of Disposition: 14:07
Admit to: Telemetry
Admit to doctor: hospitalist
Presentation/result/management discussed w/ accepting MD/DO: Hospitalist
Patient with high blood pressure during this ER visit?: Yes
Condition: Fair
Covid-19: Not Applicable
Discharge Problem:
Pleural effusion, Anemia
Prescriptions:
No Action
acetaminophen [Tylenol] 325 mg Tablet
650 mg PO Q4HPRN PRN (Reason: mild pain/fever>100.4)
bisacodyl [Dulcolax (bisacodyl)] 10 mg Suppository
10 mg AL [id number] PRN (Reason: if no bm after mom)
pyridoxine (vitamin B6) 100 mg Tablet
100 mg PO DAILY
albuterol sulfate 90 mcg/actuation Hfa Aerosol Inhaler
2 puff INHALATION R Q6HPRN PRN (Reason: sob)
ipratropium bromide 21 mcg (0.03 %) [place],Non-Aerosol
2 spray INTRANASAL BID
finasteride 5 mg Tablet
5 mg PO DAILY
Saline Nasal 0.65 % Aerosol,[place]
1 spray INTRANASAL QIDPRN PRN (Reason: dryness)
lactulose 10 gram/15 mL Solution
10 g PO HSPRN PRN (Reason: constipation )
calcium carbonate-vitamin D3 [Calcium 500 + D] 500 mg-10 mcg (400 unit) Tablet
1 tab PO DAILY
Refresh Optive 0.5-0.9 % Drops
1 drp BOTH EYES BID
sodium chloride 1,000 mg Tablet,Soluble
1,000 mg PO BID
ondansetron 4 mg Tablet,Disintegrating
4 mg PO Q8HPRN PRN (Reason: nausea)
lidocaine 4 % Adhesive Patch,Medicated
2 patch TOPICAL DAILY
Rx Instructions:
APPLY ONE PATCH TO ANTERIOR RIB CAGE AND 1 PATCH TO LEFT SIDE MID POSTERIOR RIB CAGE
duloxetine 20 mg Capsule,Delayed Release(Dr/Ec)
20 mg PO DAILY
polyethylene glycol 3350 17 gram powder in packet
17 g PO BID
sennosides-docusate sodium 8.6-50 mg tablet
2 tab PO BID
cyanocobalamin (vitamin B-12) [Vitamin B-12] 500 mcg Tablet
1,000 mcg PO DAILY Qty: 0 0RF
pantoprazole 40 mg Tablet,Delayed Release (Dr/Ec)
40 mg PO DAILY Qty: 0 0RF
folic acid 1 mg Tablet
1 mg PO DAILY Qty: 0 0RF
furosemide 40 mg Tablet
40 mg PO DAILY Qty: 0 0RF
atorvastatin [Lipitor] 40 mg Tablet
40 mg PO QPM
tamsulosin [Flomax] 0.4 mg Capsule
0.4 mg PO QPM
alum-mag hydroxide-simeth [Mylanta] 200-200-20 mg/5 mL Suspension
20 ml PO BIDPRN PRN (Reason: gas)
simethicone [Gas-X] 80 mg Tablet,Chewable
80 mg PO TIDPRN PRN (Reason: gas pains)
lubiprostone 8 mcg Capsule
8 mcg PO DAILY
Referrals:
UNKNOWN - PT DOES,NOT KNOW [Family Provider]
Interventions
Interventions:
*Risk Screen - Suicide Last Done: 11/25/24 10:34
*General Assessment Last Done: 11/25/24 10:35
*Neglect/Abuse Screening Last Done: 11/25/24 10:34
*ED- Fall Risk Assessment Last Done: 11/25/24 10:34
*ED COVID-19 Vaccine History Last Done: 11/25/24 10:34
*ED Influenza Vaccine History Last Done: 11/25/24 10:34
WN-Andgqe-Mnjdhknzdw Assessment Last Done: 11/25/24 10:45
Discharge Date and Time
Print Language: SLOVAK
[2024-11-25 11:03] LABS: Hematocrit 23.7 % (39.0-52.0); Hemoglobin 7.9 g/dL (13.0-18.0); Mean Corp Hgb Conc. 33.3 g/dL (33.0-37.0); Mean Corpuscular Volume 99.6 fL (80.0-94.0); Nucleated Red Blood Cells % 0 % (-); Platelet Count 186 10^3/uL (130-400); Red Cell Dist. Width 16.1 % (11.5-14.5)
[2024-11-25 11:28] LABS: Urine Character Clear (Clear)
[2024-11-25 11:29] LABS: ALT (SGPT) 16 U/L (0-50); AST (SGOT) 22 U/L (17-59); Albumin 2.9 g/dl (3.5-5.0); Alkaline Phosphatase 123 U/L (38-126); Blood Urea Nitrogen 65 mg/dl (9-20); Calcium 9.6 mg/dl (8.4-10.2); Carbon Dioxide 23 mmol/L (22-30); Chloride 110 mmol/L (98-107); Estimated Creatinine Clearance 15 ml/min; Glucose 84 mg/dl (70-99); Lipase 29 U/L (23-300); Potassium 5.1 mmol/L (3.5-5.1); Sodium 137 mmol/L (135-145); Total Protein 8.9 g/dl (6.3-8.2); eGFR 15.76
[2024-11-25 11:56] LABS: Urine Red Blood Cell 0-2 /HPF (0-2)
[2024-11-25] MEDS: LASIX 40 MG IV (14:10)
[2024-11-25] MEDS: MAXIPIME 2000 MG IV (14:10)
--- NOTE | 2024-11-25 14:49 | W.PN.UPDATE ---
Update Note
Progress Note Update
84-year-old male with HFpEF, CAD s/p PCI (2012), COPD, suspected multiple myeloma with CKD, dyslipidemia, hypertension, GERD, BPH, gout, intellectual disability, former smoker, H/O RLE DVT not on AC, presenting to the hospital today with a complaint
of abdomen pain. Sent from [facility] as it was reported he was complaining of abdomen pain, patient is difficult historian. Reportedly with pain for several days, reduced appetite. AFVSS upon arrival. Labs with WBC 4, hemoglobin 7.9 with
MCV 99.6, creatinine 3.6, BUN 65, total protein 8.9, albumin 2.9. UA unremarkable. ECG nonischemic, showed NSR. CXR showed 80% opacification of the right hemithorax consistent with large pleural effusion. CT A/P without contrast redemonstrated
pleural effusion with increased focal density concerning for malignancy, bilateral lipoid pneumonia, widespread bony metastases, though no signs of bowel obstruction or acute intra-abdominal processes.
Alert and oriented, NAD. Reduced sounds to the right hemithorax though otherwise clear. RRR, normal S1-2, no murmur. Abdomen benign, nontender, nondistended. No rashes, skin warm and dry. No obvious FND though difficult to elicit neuroexam
#Large right pleural effusion. Suspect malignant process with widespread metastases and likely multiple myeloma. IR consulted for therapeutic and diagnostic thoracentesis. Will order fluid pH, LDH, protein, cell count, cytology. Monitor
respiratory status
#CT findings of bilateral lipoid pneumonia. Question aspiration of lipoid substances. Stable on room air, no fevers. Leukopenia more likely related to MM. Defer against antibiotics for now. SENIOR LICENSING MANAGER eval for assessment of aspiration risk
#Abdomen pain. Likely gas pain, though possibly some discomfort related to effusion. No signs of acute intra-abdominal processes on CT. Start Maalox. Will provide bowel regimen and monitor clinically
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 Reportedly with positive monoclonal free light chain ratio on previous hospital stay, was recommended to have OP SPEP/UPEP/ADÁN. GOC on last hospital stay with patient's relative,
determined that he would not want HD and not good candidate for chemotherapy. Will monitor BMP and UOP here.
#Anemia and leukopenia. Recent hospitalization had pancytopenia associated with multiple myeloma. Continue to trend CBC and temperature curve.
Diet -- Full liquids pending SENIOR LICENSING MANAGER eval
Thromboprophylaxis -- Heparin SQ
CODE STATUS -- DNR
I have independently evaluated the patient at the bedside. I will be admitting Eulogio Acevedo to telemetry. He is at high risk of worsening morbidity due to large pleural effusion and risk of respiratory compromise. He will require intensive
monitoring of his respiratory status and possible readjustment of his diuretic regimen. I discussed the case with the ED attending, interventional radiologist. I reviewed the case with the resident and agree with documentation unless otherwise
specified.
See resident H&P for more detail when available
[2024-11-25 15:39] LABS: LDH 146 U/L (120-246)
--- NOTE | 2024-11-25 17:32 | HPS.HSE ---
Family Physician
-
Family Physician: NOT KNOW UNKNOWN - PT DOES
Chief Complaint
-
Abdominal pain, decreased appetite
History of Present Illness
84-year-old poor historian male with PMH of CAD s/p stent (2012), COPD, suspected multiple myeloma with CKD, dyslipidemia, hypertension, GERD, BPH, gout, intellectual disability, former smoker, H/O RLE DVT not on AC,congenital hearing loss, speech
impediment. Presenting to the hospital today from [facility] with a complaint of abdomen pain and low appetite for several days. AFVSS upon arrival. Labs with WBC 4, hemoglobin 7.9 with MCV 99.6, creatinine 3.6, BUN 65, total protein 8.9,
albumin 2.9. UA unremarkable. ECG nonischemic, showed NSR. CXR showed 80% opacification of the right hemithorax consistent with large pleural effusion. CT A/P without contrast redemonstrated pleural effusion with increased focal density
concerning for malignancy, bilateral lipoid pneumonia, widespread bony metastases, though no signs of bowel obstruction or acute intra-abdominal processes.
Medical History
Past Medical History
Past Medical History: Reports Other
Additional Past Medical History:
HFpEF, CAD s/p PCI (2012), COPD, Gout, Hyponatremia, Depression, suspected multiple myeloma with CKD, dyslipidemia, hypertension, GERD, BPH, gout, intellectual disability, former smoker, H/O RLE DVT not on AC
Past Surgical History: Reports Other (Cataract surgery )
Additional Past Surgical History:
Right eyelid cataract surgery
Social History
Tobacco: Non-smoker
Alcohol: None
Personal: Single
Living: [place]
Family History
Family History: Not pertinent
Allergies / Home Medications
Allergies reflects when Allergies were last updated in [employer].
Allergies
Allergy/AdvReac Type Severity Reaction Status Date / Time
Penicillins Allergy Unknown Unknown- Verified 11/25/24 10:45
tolerated
ceftriaxone
in Feb 2024
Home Medications
acetaminophen 325 mg tablet (Tylenol) 650 mg PO Q4HPRN PRN mild pain/fever>100.4 03/11/24
albuterol sulfate 90 mcg/actuation aerosol inhaler 2 puff inhalation R Q6HPRN PRN sob 03/11/24
bisacodyl 10 mg rectal suppository (Dulcolax (bisacodyl)) 10 mg NC [id number] PRN if no bm after mom 03/11/24
calcium 500 mg (as carbonate)-vitamin D3 10 mcg (400 unit) tablet (Calcium 500 + D) 1 tab PO DAILY Supplement 03/11/24
carboxymethylcellulose 0.5 %-glycerin 0.9 % eye drops (Refresh Optive) 1 drp BOTH EYES BID dry eyes 03/11/24
finasteride 5 mg tablet 5 mg PO DAILY Urinary Issue 03/11/24
ipratropium bromide 21 mcg (0.03 %) nasal spray 2 spray intranasal BID Allergies 03/11/24
lactulose 10 gram/15 mL oral solution 10 g PO HSPRN PRN constipation 03/11/24
pyridoxine (vitamin B6) 100 mg tablet 100 mg PO DAILY Supplement 03/11/24
sodium chloride 0.65 % nasal spray aerosol (Saline Nasal) 1 spray intranasal QIDPRN PRN dryness 03/11/24
sodium chloride 1,000 mg soluble tablet 1,000 mg PO BID Electrolyte Repletion 04/22/24
duloxetine 20 mg capsule,delayed release 20 mg PO DAILY Mental Health 11/01/24
lidocaine 4 % topical patch 2 patch topical DAILY mild Pain 11/01/24
ondansetron 4 mg disintegrating tablet 4 mg PO Q8HPRN PRN nausea 11/01/24
polyethylene glycol 3350 17 gram oral powder packet 17 g PO BID Gastrointestinal Issue 11/01/24
sennosides 8.6 mg-docusate sodium 50 mg tablet 2 tab PO BID Constipation 11/01/24
cyanocobalamin (vitamin B-12) 500 mcg tablet (Vitamin B-12) 1,000 mcg (2 x 500 mcg) PO DAILY #0 tabs 11/06/24
folic acid 1 mg tablet 1 mg PO DAILY #0 tabs 11/06/24
furosemide 40 mg tablet 40 mg PO DAILY #0 tabs 11/06/24
pantoprazole 40 mg tablet,delayed release 40 mg PO DAILY #0 tabs 11/06/24
aluminum-mag hydroxide-simethicone 200 mg-200 mg-20 mg/5 mL oral susp 20 ml PO BIDPRN PRN gas 11/25/24
atorvastatin 40 mg tablet (Lipitor) 40 mg PO QPM 11/25/24
lubiprostone 8 mcg capsule 8 mcg PO DAILY 11/25/24
simethicone 80 mg chewable tablet 80 mg PO TIDPRN PRN gas pains 11/25/24
tamsulosin 0.4 mg capsule (Flomax) 0.4 mg PO QPM 11/25/24
Home Medications with original date entered in [employer]
Allergy/Medication List:
Allergies
Allergy/AdvReac Type Severity Reaction Status Date / Time
Penicillins Allergy Unknown Unknown- Verified 11/25/24 10:45
tolerated
ceftriaxone
in Feb 2024
Home Medications
acetaminophen 325 mg tablet (Tylenol) 650 mg PO Q4HPRN PRN mild pain/fever>100.4 03/11/24
albuterol sulfate 90 mcg/actuation aerosol inhaler 2 puff inhalation R Q6HPRN PRN sob 03/11/24
bisacodyl 10 mg rectal suppository (Dulcolax (bisacodyl)) 10 mg NC [id number] PRN if no bm after mom 03/11/24
calcium 500 mg (as carbonate)-vitamin D3 10 mcg (400 unit) tablet (Calcium 500 + D) 1 tab PO DAILY Supplement 03/11/24
carboxymethylcellulose 0.5 %-glycerin 0.9 % eye drops (Refresh Optive) 1 drp BOTH EYES BID dry eyes 03/11/24
finasteride 5 mg tablet 5 mg PO DAILY Urinary Issue 03/11/24
ipratropium bromide 21 mcg (0.03 %) nasal spray 2 spray intranasal BID Allergies 03/11/24
lactulose 10 gram/15 mL oral solution 10 g PO HSPRN PRN constipation 03/11/24
pyridoxine (vitamin B6) 100 mg tablet 100 mg PO DAILY Supplement 03/11/24
sodium chloride 0.65 % nasal spray aerosol (Saline Nasal) 1 spray intranasal QIDPRN PRN dryness 03/11/24
sodium chloride 1,000 mg soluble tablet 1,000 mg PO BID Electrolyte Repletion 04/22/24
duloxetine 20 mg capsule,delayed release 20 mg PO DAILY Mental Health 11/01/24
lidocaine 4 % topical patch 2 patch topical DAILY mild Pain 11/01/24
ondansetron 4 mg disintegrating tablet 4 mg PO Q8HPRN PRN nausea 11/01/24
polyethylene glycol 3350 17 gram oral powder packet 17 g PO BID Gastrointestinal Issue 11/01/24
sennosides 8.6 mg-docusate sodium 50 mg tablet 2 tab PO BID Constipation 11/01/24
cyanocobalamin (vitamin B-12) 500 mcg tablet (Vitamin B-12) 1,000 mcg (2 x 500 mcg) PO DAILY #0 tabs 11/06/24
folic acid 1 mg tablet 1 mg PO DAILY #0 tabs 11/06/24
furosemide 40 mg tablet 40 mg PO DAILY #0 tabs 11/06/24
pantoprazole 40 mg tablet,delayed release 40 mg PO DAILY #0 tabs 11/06/24
aluminum-mag hydroxide-simethicone 200 mg-200 mg-20 mg/5 mL oral susp 20 ml PO BIDPRN PRN gas 11/25/24
atorvastatin 40 mg tablet (Lipitor) 40 mg PO QPM 11/25/24
lubiprostone 8 mcg capsule 8 mcg PO DAILY 11/25/24
simethicone 80 mg chewable tablet 80 mg PO TIDPRN PRN gas pains 11/25/24
tamsulosin 0.4 mg capsule (Flomax) 0.4 mg PO QPM 11/25/24
If medication reconciliation has not been performed, why?: Other (congenital hearing loss, speech impediment)
Review of Systems
-
Unable to obtain full review of systems at this time due to: Other (congenital hearing loss, speech impediment, )
History Source: [place]
Respiratory: Reports Trouble Breathing
: Reports No Symptoms
Musculoskeletal: Reports No Symptoms
Physical Exam
Vital Signs
Vital Signs
Temp Pulse Resp BP Pulse Ox
97.8 F 68 16 106/64 95
11/25/24 10:36 11/25/24 17:00 11/25/24 17:00 11/25/24 17:00 11/25/24 16:50
Physical Exam
General: Comfortable
Respiratory: Decreased Breath Sounds (RIGHT LOWER LOB)
Cardiac: S1/S2 and Regular Rhythm
GI: Tender and Distended
Musculoskeletal: No Clubbing and No Cyanosis
Neuro: Awake, Alert and Oriented
Laboratory Results
-
11/25/24 10:52
11/25/24 10:52
Laboratory Results
Total Bilirubin 0.4 mg/dl (0.2-1.3) 11/25/24 10:52
AST 22 U/L (17-59) 11/25/24 10:52
ALT 16 U/L (0-50) 11/25/24 10:52
Alkaline Phosphatase 123 U/L (38-126) 11/25/24 10:52
Lipase 29 U/L (23-300) 11/25/24 10:52
Impression/Plan
-
IMPRESSION:
84-year-old poor historian male with PMH of CAD s/p stent (2012), COPD, suspected multiple myeloma with CKD, dyslipidemia, hypertension, GERD, BPH, gout, intellectual disability, former smoker, H/O RLE DVT not on AC,congenital hearing loss, speech
impediment. Presenting to the hospital today from [facility] with a complaint of abdomen pain and low appetite for several days. AFVSS upon arrival. Labs with WBC 4, hemoglobin 7.9 with MCV 99.6, creatinine 3.6, BUN 65, total protein 8.9,
albumin 2.9. UA unremarkable. ECG nonischemic, showed NSR.
PLAN:
#Large right pleural effusion
Suspect malignant process with metastasis likely multiple myeloma
per chest -xray: 80% opacification of the right hemithorax consistent with large pleural effusion
IR consulted , therapeutic and diagnostic thoracentesis done today
Will order fluid pH, LDH, protein, cell count, cytology
Monitor respiratory status
currently on 2L oxygen [place]
#Abdomen pain
Likely related to the discomfort from the pleural effusion vs gas related pain
no signs of acute intraabdominal lesions
#bilateral lipoid pneumonia
Per CT scan findings likely aspiration pneumonia
#Suspected multiple myeloma
#CKD stage 4
(creatinine baseline 3.5)
Per CT scan osteolytic lesion in the bones worsened from previous imaging
Reportedly with positive monoclonal free light chain ratio on previous hospital stay, was recommended to have OP SPEP/UPEP/ADÁN.
GOC on last hospital stay with patient's relative, determined that he would not want HD and not good candidate for chemotherapy
Will monitor BMP and UOP here
#Leukopenia and Anemia
likely related to Multiple Myeloma
Recent hospitalization had pancytopenia associated with multiple myeloma
Continue to trend CBC and temperature curve
Diet , Full liquids pending SKIN TANNER eval
Thromboprophylaxis - Heparin SQ
CODE STATUS -- DNR
--- NOTE | 2024-11-25 17:36 | EDCM ---
CM reviewed chart, information obtained from recent admission 11/01 to 11/06.
Pt resides at [facility] in LTC. his sister is involved and supportive.
He is dependent for ADLs and personal care, self propels his wheelchair.
PCP: Dr Pisano
Meds supplied by [facility].
Anticipate return to [place], CM will continue to follow.
[2024-11-25 17:48] LABS: Body Fluid Second Tech BGK
[2024-11-25 21:34] LABS: Glucose - Point of Care 130 mg/dl (70-99)
[2024-11-25] MEDS: MIRALAX 17 GRAMS PO (23:11)
[2024-11-25] MEDS: SODIUM CHLORIDE 1 GRAM PO (23:11)
[2024-11-25] MEDS: CYMBALTA DELAYED RELEASE 20 MG PO (23:12)
[2024-11-25] MEDS: SENOKOT-S 2 TABLET PO (23:12)
[2024-11-25] MEDS: LIPITOR 40 MG PO (23:12)
[2024-11-25] MEDS: LOVENOX 30 MG SC (23:12)
[2024-11-25] MEDS: FLOMAX 0.4 MG PO (23:12)
[2024-11-25] MEDS: REFRESH EYE DROPS (PF) 1 DROPS BOTH EYES (23:12)
[2024-11-26 07:43] VITALS: BP 114/59
[2024-11-26 08:25] LABS: Hematocrit 20.2 % (39.0-52.0); Hemoglobin 6.7 g/dL (13.0-18.0); Mean Corp Hgb Conc. 33.2 g/dL (33.0-37.0); Mean Corpuscular Volume 102.0 fL (80.0-94.0); Platelet Count 168 10^3/uL (130-400); Red Cell Dist. Width 16.1 % (11.5-14.5)
[2024-11-26] MEDS: OSCAL 500 + D 500 MG PO (08:26)
[2024-11-26] MEDS: CYMBALTA DELAYED RELEASE 20 MG PO (08:26)
[2024-11-26] MEDS: VITAMIN B-12 1000 MCG PO (08:26)
[2024-11-26] MEDS: VITAMIN B-6 100 MG PO (08:26)
[2024-11-26] MEDS: PROSCAR 5 MG PO (08:26)
[2024-11-26] MEDS: REFRESH EYE DROPS (PF) 1 DROPS BOTH EYES ×2 (08:26→19:57)
[2024-11-26] MEDS: PROTONIX 40 MG PO (08:27)
[2024-11-26] MEDS: SENOKOT-S 2 TABLET PO ×2 (08:27→19:57)
[2024-11-26] MEDS: FOLVITE 1 MG PO (08:27)
[2024-11-26] MEDS: LIDOCAINE 4% PATCH 2 PATCH TOPICAL (08:27)
[2024-11-26] MEDS: MIRALAX 17 GRAMS PO ×2 (08:28→19:57)
[2024-11-26] MEDS: SODIUM CHLORIDE 1 GRAM PO ×2 (08:28→19:57)
[2024-11-26] MEDS: LASIX 40 MG PO (08:33)
[2024-11-26 08:59] LABS: Hematocrit 22.6 % (39.0-52.0); Hemoglobin 7.6 g/dL (13.0-18.0); Mean Corp Hgb Conc. 33.6 g/dL (33.0-37.0); Mean Corpuscular Volume 101.3 fL (80.0-94.0); Platelet Count 174 10^3/uL (130-400); Red Cell Dist. Width 16.3 % (11.5-14.5)
[2024-11-26 09:00] LABS: Glucose - Point of Care 90 mg/dl (70-99)
[2024-11-26 09:06] VITALS: BP 130/75
[2024-11-26 09:28] LABS: ALT (SGPT) 13 U/L (0-50); AST (SGOT) 21 U/L (17-59); Albumin 2.4 g/dl (3.5-5.0); Alkaline Phosphatase 112 U/L (38-126); Blood Urea Nitrogen 66 mg/dl (9-20); Calcium 10.0 mg/dl (8.4-10.2); Carbon Dioxide 25 mmol/L (22-30); Chloride 111 mmol/L (98-107); Estimated Creatinine Clearance 14 ml/min; Glucose 72 mg/dl (70-99); Potassium 5.1 mmol/L (3.5-5.1); Sodium 138 mmol/L (135-145); Total Protein 7.7 g/dl (6.3-8.2); eGFR 14.77
--- NOTE | 2024-11-26 10:53 | W.PN.UPDATE ---
Update Note
Progress Note Update
I have independently evaluated the patient at the bedside. I reviewed the case with the resident and agree with documentation was otherwise specified.
AFVSS on 2 L O2. Patient complaining of some shortness of breath and abdomen pain. Noted by nursing to have significant oral secretions this morning.
Alert and oriented, NAD. Reduced sounds to the right hemithorax though otherwise clear. RRR, normal S1-2, no murmur. Abdomen benign, nontender, nondistended. No rashes, skin warm and dry. No obvious FND though difficult to elicit neuroexam
#Acute hypoxemic respiratory insufficiency due to large exudative right pleural effusion. Suspect malignant process with widespread metastases and likely multiple myeloma. Will order repeat chest x-ray to further assess. Monitor respiratory
status, wean oxygen for SpO2 goal >90%
#CT findings of bilateral lipoid pneumonia. Question aspiration of lipoid substances. Had some signs of worsening aspiration this morning. Convert to strict n.p.o. pending OFFLINE CUTTER eval. Monitor CBC and temperature curve. Defer against antibiotics
for now
#Abdomen pain. Likely gas pain versus constipation. No signs of acute intra-abdominal processes on CT 11/25.continue with Maalox for now. Order abdomen x-ray for this morning. Will provide bowel regimen and monitor clinically
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 Reportedly with positive monoclonal free light chain ratio on previous hospital stay, was recommended to have OP SPEP/UPEP/ADÁN. GOC on last hospital stay with patient's relative,
determined that he would not want HD and not good candidate for chemotherapy. Will monitor BMP and UOP here.
#Anemia and leukopenia. Recent hospitalization had pancytopenia associated with multiple myeloma. Continue to trend CBC and temperature curve.
Diet -- Full liquids pending OFFLINE CUTTER eval
Thromboprophylaxis -- Heparin SQ
CODE STATUS -- DNR
GOC -- With multiple myeloma, possible aspiration, previous designation by family that he would not want hemodialysis or chemotherapy will need to reach out to his sister and further discuss his long-term goals of care. Likely is hospice
appropriate and would benefit from discussions
[2024-11-26] MEDS: DULCOLAX 10 MG RECTAL (11:00)
--- NOTE | 2024-11-26 12:51 | PTOTSP ---
Acute Care Evaluation
Pt is currently presenting with clinical signs consistent with his previously dx mild oral and moderate pharyngeal dysphagia as evident on his VFSS completed on 11/04/2024 that is perhaps exacerbated by a current esophageal component, as evident by
pt's clenching at his distal esophageal region upon ingestion of liquids as well as his delayed onset of coughing on two occasions that were suspicious for penetration/aspiration from retrograde flow. Pt exhibits fairly adequate airway protection
provided strict adherence of previously recommended guidelines for liquid ingestion including FULL supervision for meals, small single sips, and NO straws.
Recommendations:
- Initiate PO diet of pureed solids via tsp with thin liquids but SMALL SINGLE SIPS ONLY and NO STRAWS.
- Aspiration precautions: FULL SUPERVISION WITH ALL PO INTAKE - do not leave anything within pt's reach to consume; upright for all PO intake; small bites/sips; slow intake rate; alternate bites/sips.
- Reflux precautions: Ensure pt is eating/drinking slowly; ensure pt does not over-eat; encourage small frequent meals as opposed to large meals; HOB upright at least 30 degrees when sleeping.
- COMPUTER TESTER to f/u re: diet tolerance and use/compliance of recommended compensatory strategies, trial candidacy for further diet upgrades, and to determine whether pt would benefit from a repeated instrumental swallow study. Will also continue to
follow-up re: GOC discussions.
--- NOTE | 2024-11-26 15:07 | W.PN.HOSP.TC ---
Today's Communication/Plan
-
chest x ray for difficulty breathing
abd x ray for abd pain
speech evaluation , Diet is IDDSI 4
PPI drip
spoke with power of regulatory attorney (sister) about the [facility] plane over the phone and she was informed at the SNF that he is not eligible for hospice and she would like to have more information about it if her brother is eligible for that
bisacodyl suppository
field nurse case manager consulted for hospice
Assessment / Plan
Assessment / Plan
84-year-old poor historian male with PMH of CAD s/p stent (2012), COPD, suspected multiple myeloma with CKD, dyslipidemia, hypertension, GERD, BPH, gout, intellectual disability, former smoker, H/O RLE DVT not on AC,congenital hearing loss, speech
impediment. Presenting to the hospital today from [facility] with a complaint of abdomen pain and low appetite for several days. AFVSS upon arrival. Labs with WBC 4, hemoglobin 7.9 with MCV 99.6, creatinine 3.6, BUN 65, total protein 8.9,
albumin 2.9. UA unremarkable. ECG nonischemic, showed NSR.
PLAN:
#Large right pleural effusion
Suspect malignant process with metastasis likely multiple myeloma
per chest -xray: 80% opacification of the right hemithorax consistent with large pleural effusion
IR consulted , therapeutic and diagnostic thoracentesis done today
Will order fluid pH, LDH, protein, cell count, cytology
Monitor respiratory status
currently on 2L oxygen [place]
spoke with power of regulatory attorney (sister) about the [facility] plane over the phone and she was informed at the SNF that he is not eligible for hospice and she would like to have more information about the hospice
#Abdomen pain
Likely related to the discomfort from the pleural effusion vs gas related pain
no signs of acute intraabdominal lesions
#bilateral lipoid pneumonia
Per CT scan findings likely aspiration pneumonia
Aspiration precaution
IDDSI 4 diet
#Suspected multiple myeloma
#CKD stage 4
(creatinine baseline 3.5)
Per CT scan osteolytic lesion in the bones worsened from previous imaging
Reportedly with positive monoclonal free light chain ratio on previous hospital stay, was recommended to have OP SPEP/UPEP/ADÁN.
GOC plane discussed with power of regulatory attorney (sister) over the phone and she was informed at the that he is not eligible for hospice and she would like now to have more information about it if her brother is eligible for that
bisacodyl suppository
determined that he would not want HD and not good candidate for chemotherapy
Will monitor BMP and UOP here
#Leukopenia and Anemia
likely related to Multiple Myeloma
Recent hospitalization had pancytopenia associated with multiple myeloma
Continue to trend CBC and temperature curve
Diet , Full liquids pending IDEA MAN eval
Thromboprophylaxis - Heparin SQ
CODE STATUS -- DNR
Anticipated Discharge: > 48 hours
Subjective/Interval History
-
Date of Service: November 26, 2024
patient has abd pain this morning and difficulty breathing.chest x ray was done and no change from the CT scan that was done yesterday, Abd x ray showed stool burden in the colon without sign of obstruction.
Objective Data
-
Labs:
Laboratory Results
11/26/24 11/26/24
06:36 08:47
WBC 4.0 L 4.0 L
Hgb 6.7 L* 7.6 L
Hct 20.2 L* 22.6 L
Plt Count 168 174
Sodium 138
Potassium 5.1
Chloride 111 H
Carbon Dioxide 25
BUN 66 H
Creatinine 3.8 H
Glucose 72
Calcium 10.0
Total Bilirubin 0.4
AST 21
ALT 13
Alkaline Phosphatase 112
Vital Signs:
Vital Signs
Temp Pulse Resp BP Pulse Ox
97.5 F 73 20 130/75 97
11/26/24 09:06 11/26/24 09:06 11/26/24 09:06 11/26/24 09:06 11/26/24 09:06
I&O
11/25/24 11/26/24 11/27/24
06:59 06:59 06:59
Output Total 1650 / 0
Balance -1650 / -1650
Review of Systems
-
History Source: Patient and Other (difficult with intellectual disability and speech difficulty )
Respiratory: Reports Trouble Breathing
Abdomen/GI: Reports Abdominal Pain
Genitourinary: Reports No Symptoms
Physical Exam
-
General: Appears in Distress
Respiratory: Wheezes
Cardiac: Regular Rhythm and S1/S2
GI: Tender and Distended
Musculoskeletal: No Clubbing, No Cyanosis and No Edema
Neuro: Awake and Alert
--- NOTE | 2024-11-26 15:29 | CM ---
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
Plan; Hospice referral sent.
[2024-11-26 15:50] VITALS: BP 123/73
[2024-11-26] MEDS: LIPITOR 40 MG PO (16:44)
[2024-11-26] MEDS: LOVENOX 30 MG SC (16:45)
[2024-11-26] MEDS: FLOMAX 0.4 MG PO (16:45)
--- NOTE | 2024-11-26 17:12 | HOSPNOTE ---
Loretta'philippe referral - will follow up in the morning 11/27
[2024-11-26 23:00] VITALS: BP 113/63
[2024-11-27 07:29] LABS: Hematocrit 22.8 % (39.0-52.0); Hemoglobin 7.6 g/dL (13.0-18.0); Mean Corp Hgb Conc. 33.3 g/dL (33.0-37.0); Mean Corpuscular Volume 103.6 fL (80.0-94.0); Platelet Count 186 10^3/uL (130-400); Red Cell Dist. Width 16.1 % (11.5-14.5)
--- NOTE | 2024-11-27 07:59 | W.PN.UPDATE ---
Update Note
Progress Note Update
I have independently evaluated the patient at the bedside. I reviewed the case with the resident and agree with documentation was otherwise specified.
AFVSS. Denies any complaints this morning. Hemoglobin stable at 7.7
Alert and oriented, NAD. Reduced sounds to the right hemithorax though otherwise clear. RRR, normal S1-2, no murmur. Abdomen benign, nontender, nondistended. No rashes, skin warm and dry. No obvious FND though difficult to elicit neuroexam
#Acute hypoxemic respiratory insufficiency due to large exudative right pleural effusion. Suspect malignant process with widespread metastases and likely multiple myeloma. Will order repeat chest x-ray to further assess. Monitor respiratory
status, wean oxygen for SpO2 goal >90%
#CT findings of bilateral lipoid pneumonia. Question aspiration of lipoid substances. Had some signs of worsening aspiration this morning. Convert to strict n.p.o. pending ASSEMBLING MOTOR BUILDER eval. Monitor CBC and temperature curve. Defer against antibiotics
for now
#Abdomen pain. Likely gas pain versus constipation. No signs of acute intra-abdominal processes on CT 11/25.continue with Maalox for now. Order abdomen x-ray for this morning. Will provide bowel regimen and monitor clinically
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 Reportedly with positive monoclonal free light chain ratio on previous hospital stay, was recommended to have OP SPEP/UPEP/ADÁN. GOC on last hospital stay with patient's relative,
determined that he would not want HD and not good candidate for chemotherapy. Will monitor BMP and UOP here.
#Anemia and leukopenia. Recent hospitalization had pancytopenia associated with multiple myeloma. Continue to trend CBC and temperature curve.
Diet -- pur�ed
Thromboprophylaxis -- Heparin SQ
CODE STATUS -- DNR
GOC -- Patient's sister wanted to pursue hospice at [facility] though was denied due to no terminal diagnosis, however she was unaware that he was diagnosed with multiple myeloma. With this diagnosis he is hospice appropriate as hemodialysis
and chemotherapy are not being pursued. Planning for hospice at [facility], possibly as soon as Tuesday 11/28
[2024-11-27 08:25] LABS: Blood Urea Nitrogen 67 mg/dl (9-20); Calcium 10.1 mg/dl (8.4-10.2); Carbon Dioxide 26 mmol/L (22-30); Chloride 110 mmol/L (98-107); Estimated Creatinine Clearance 13 ml/min; Glucose 82 mg/dl (70-99); Potassium 4.7 mmol/L (3.5-5.1); Sodium 139 mmol/L (135-145); eGFR 13.89
[2024-11-27 08:30] VITALS: BP 117/54
[2024-11-27] MEDS: FOLVITE 1 MG PO (09:00)
[2024-11-27] MEDS: PROSCAR 5 MG PO (09:00)
[2024-11-27] MEDS: OSCAL 500 + D 500 MG PO (09:00)
[2024-11-27] MEDS: LASIX 40 MG PO (09:00)
[2024-11-27] MEDS: SENOKOT-S 2 TABLET PO ×2 (09:00→20:02)
[2024-11-27] MEDS: SODIUM CHLORIDE 1 GRAM PO ×2 (09:00→20:02)
[2024-11-27] MEDS: VITAMIN B-6 100 MG PO (09:01)
[2024-11-27] MEDS: CYMBALTA DELAYED RELEASE 20 MG PO (09:01)
[2024-11-27] MEDS: VITAMIN B-12 1000 MCG PO (09:01)
[2024-11-27] MEDS: NSS (PRESERVATIVE FREE) 10 ML IV (09:01)
[2024-11-27] MEDS: PROTONIX IV 40 MG IV (09:01)
[2024-11-27] MEDS: MIRALAX 17 GRAMS PO ×2 (09:02→20:02)
[2024-11-27] MEDS: LIDOCAINE 4% PATCH 2 PATCH TOPICAL (09:02)
[2024-11-27] MEDS: REFRESH EYE DROPS (PF) 1 DROPS BOTH EYES ×2 (09:02→20:01)
[2024-11-27] MEDS: LOW STRENGTH ASPIRIN 81 MG PO (09:21)
--- NOTE | 2024-11-27 09:30 | CM ---
Addendum entered by Jes Laurent 11/27/24 13:08:
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
Addendum entered by Jes Laurent 11/27/24 10:27:
Patient to return to [facility] tomorrow with [facility].
Report to [facility] [address]
Report [phone]

Original Note:
[facility] to reach out to patient's sister today, to review hospice, plan is for patient to return to [facility] on hospice. Message left with admissions.
Plan; To follow up with admissions at [facility], send clinicals.
--- NOTE | 2024-11-27 10:24 | HOSPNOTE ---
Addendum entered by Xiomara Ramirez RN 11/27/24 13:00:
Transport set up for 9:30AM as per LUC Laurent - Nuvia will meet Hospice Admission RN at 10AM in the lobby at [place] to sign consents
Original Note:
Spoke with patient's sister and JIMBO Pedersen - discussed hospice philosophy. She had met with another hospice company at [place] and was told he did not qualify. Based on the review of the chart and input from Dr Degroot, the patient does meet criteria.
Nuvia agreed that patient will be admitted to upon discharge on 11/28. TT with LUC Laurent to request order picker at 9AM.
[2024-11-27 11:28] LABS: ALT (SGPT) 13 U/L (0-50); AST (SGOT) 14 U/L (17-59); Albumin 2.4 g/dl (3.5-5.0); Alkaline Phosphatase 118 U/L (38-126); Total Protein 7.8 g/dl (6.3-8.2)
--- NOTE | 2024-11-27 14:09 | W.PN.HOSP.TC ---
Today's Communication/Plan
-
GO - Patient's sister wanted to pursue hospice at [facility] though was denied due to no terminal diagnosis, however she was unaware that he was diagnosed with multiple myeloma. With this diagnosis he is hospice appropriate as hemodialysis
and chemotherapy are not being pursued.
Planning for hospice at [facility], possibly as soon as Tuesday 11/28
Assessment / Plan
Assessment / Plan
84-year-old poor historian male with PMH of CAD s/p stent (2012), COPD, suspected multiple myeloma with CKD, dyslipidemia, hypertension, GERD, BPH, gout, intellectual disability, former smoker, H/O RLE DVT not on AC,congenital hearing loss, speech
impediment. Presenting to the hospital today from [facility] with a complaint of abdomen pain and low appetite for several days. AFVSS upon arrival. Labs with WBC 4, hemoglobin 7.9 with MCV 99.6, creatinine 3.6, BUN 65, total protein 8.9,
albumin 2.9. UA unremarkable. ECG nonischemic, showed NSR.
PLAN:
#Large right pleural effusion
Suspect malignant process with metastasis likely multiple myeloma
per chest -xray: 80% opacification of the right hemithorax consistent with large pleural effusion
IR consulted , therapeutic and diagnostic thoracentesis done today
Will order fluid pH, LDH, protein, cell count, cytology
Monitor respiratory status
currently on 2L oxygen [place]
spoke with power of contract attorney (sister) about the [facility] plane over the phone and she was informed at the SNF that he is not eligible for hospice and she would like to have more information about the hospice
#Abdomen pain
Likely related to the discomfort from the pleural effusion vs gas related pain
no signs of acute intraabdominal lesions
#bilateral lipoid pneumonia
Per CT scan findings likely aspiration pneumonia
Aspiration precaution
IDDSI 4 diet
#Suspected multiple myeloma
#CKD stage 4
(creatinine baseline 3.5)
Per CT scan osteolytic lesion in the bones worsened from previous imaging
Reportedly with positive monoclonal free light chain ratio on previous hospital stay, was recommended to have OP SPEP/UPEP/ADÁN.
[facility]OC plane discussed with power of contract attorney (sister) over the phone and she was informed at the SNF that he is not eligible for hospice and she would like now to have more information about it if her brother is eligible for that
bisacodyl suppository
determined that he would not want HD and not good candidate for chemotherapy
Will monitor BMP and UOP here
#Leukopenia and Anemia
likely related to Multiple Myeloma
Recent hospitalization had pancytopenia associated with multiple myeloma
Continue to trend CBC and temperature curve
Diet , Pureed
Thromboprophylaxis - Heparin SQ
CODE STATUS -- DNR
GOC -- Patient's sister wanted to pursue hospice at [facility] though was denied due to no terminal diagnosis, however she was unaware that he was diagnosed with multiple myeloma. With this diagnosis he is hospice appropriate as hemodialysis
and chemotherapy are not being pursued. Planning for hospice at [facility], possibly as soon as Tuesday 11/28
Anticipated Discharge: 24 - 48 hours
Subjective/Interval History
-
Date of Service: November 27, 2024
Patient denies any complaints this morning. Hemoglobin stable at 7.7
Objective Data
-
Labs:
Laboratory Results
11/27/24 11/27/24
06:40 10:50
WBC 4.5 L
Hgb 7.6 L
Hct 22.8 L
Plt Count 186
Sodium 139
Potassium 4.7
Chloride 110 H
Carbon Dioxide 26
BUN 67 H
Creatinine 4.0 H
Glucose 82
Calcium 10.1
Total Bilirubin 0.2 Cancelled
AST 14 L Cancelled
ALT 13 Cancelled
Alkaline Phosphatase 118 Cancelled
Vital Signs:
Vital Signs
Temp Pulse Resp BP Pulse Ox
98.5 F 65 20 117/54 98
11/27/24 08:30 11/27/24 09:00 11/27/24 08:30 11/27/24 09:00 11/27/24 08:30
I&O
11/26/24 11/27/24 11/28/24
06:59 06:59 06:59
Intake Total 480 / 480
Output Total 1650 / 1650 225 / 225
Balance -1650 / -1650 480 / 255 -225 / -225
Review of Systems
-
History Source: Patient and Other (difficult with intellectual disability and speech difficulty )
Respiratory: Reports No Symptoms
Cardiac: Reports No Symptoms
Abdomen/GI: Reports No Symptoms
Genitourinary: Reports No Symptoms
Musculoskeletal: Reports No Symptoms
Physical Exam
-
General: Appears in Distress
Respiratory: Decreased Breath Sounds (Reduced sounds to the right hemithorax though otherwise clear.)
Cardiac: Regular Rhythm and S1/S2
GI: Tender and Distended
Musculoskeletal: No Clubbing, No Cyanosis and No Edema
Neuro: Awake and Alert
[2024-11-27 15:25] VITALS: BP 107/54
[2024-11-27] MEDS: DULCOLAX 10 MG RECTAL (15:44)
[2024-11-27] MEDS: LIPITOR 40 MG PO (17:13)
[2024-11-27] MEDS: FLOMAX 0.4 MG PO (17:13)
[2024-11-27] MEDS: LOVENOX 30 MG SC (17:13)
[2024-11-27] MEDS: TYLENOL 650 MG PO (20:02)
[2024-11-27 23:00] VITALS: BP 112/36
[2024-11-28 08:22] VITALS: BP 121/59
[2024-11-28] MEDS: PROTONIX IV 40 MG IV (08:52)
[2024-11-28] MEDS: NSS (PRESERVATIVE FREE) 10 ML IV (08:52)
[2024-11-28] MEDS: MIRALAX 17 GRAMS PO (08:53)
[2024-11-28] MEDS: REFRESH EYE DROPS (PF) 1 DROPS BOTH EYES (08:55)
[2024-11-28] MEDS: LIDOCAINE 4% PATCH 2 PATCH TOPICAL (08:58)
--- NOTE | 2024-11-28 09:12 | CM ---
Patient is for discharge today, call placed to admissions at [facility] and they are aware of plan. 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
Plan; Patient to transfer to [facility] today, 9:30am garbage pick up man.
Report to [facility] [address]
Report [phone]
[2024-11-28] MEDS: VITAMIN B-6 PO (09:19)
[2024-11-28] MEDS: SODIUM CHLORIDE PO (09:19)
[2024-11-28] MEDS: VITAMIN B-12 PO (09:19)
[2024-11-28] MEDS: CYMBALTA DELAYED RELEASE PO (09:20)
[2024-11-28] MEDS: LOW STRENGTH ASPIRIN PO (09:20)
[2024-11-28] MEDS: FOLVITE PO (09:20)
[2024-11-28] MEDS: LASIX PO (09:20)
[2024-11-28] MEDS: OSCAL 500 + D PO (09:20)
[2024-11-28] MEDS: SENOKOT-S PO (09:20)
[2024-11-28] MEDS: PROSCAR PO (09:20)
--- NOTE | 2024-11-28 16:19 | W.PN.HOSP.TC ---
Addendum entered and electronically signed by Rudy Mason MD 11/29/24 08:43:
Read, reviewed, and agree. See same day progress note for additional details. Time spent reviewing records in EMR, med rec, consults, notes, d/w consultants, nursing, family, and CM
Original Note:
Today's Communication/Plan
-
[facility] -- Patient's sister wanted to pursue hospice at [facility] With this diagnosis he is hospice appropriate as hemodialysis and chemotherapy are not being pursued. Planning for hospice at [facility], patient transported to the hospice
today
Assessment / Plan
Assessment / Plan
84-year-old poor historian male with PMH of CAD s/p stent (2012), COPD, suspected multiple myeloma with CKD, dyslipidemia, hypertension, GERD, BPH, gout, intellectual disability, former smoker, H/O RLE DVT not on AC,congenital hearing loss, speech
impediment. Presenting to the hospital today from [facility] with a complaint of abdomen pain and low appetite for several days. AFVSS upon arrival. Labs with WBC 4, hemoglobin 7.9 with MCV 99.6, creatinine 3.6, BUN 65, total protein 8.9,
albumin 2.9. UA unremarkable. ECG nonischemic, showed NSR.
PLAN:
#Large right pleural effusion
Suspect malignant process with metastasis likely multiple myeloma
per chest -xray: 80% opacification of the right hemithorax consistent with large pleural effusion
IR consulted , therapeutic and diagnostic thoracentesis done today
Will order fluid pH, LDH, protein, cell count, cytology
Monitor respiratory status
currently on 2L oxygen [place]
spoke with power of manager development (sister) about the [facility] plane over the phone and she was informed at the SNF that he is not eligible for hospice and she would like to have more information about the hospice
#Abdomen pain
Likely related to the discomfort from the pleural effusion vs gas related pain
no signs of acute intraabdominal lesions
#bilateral lipoid pneumonia
Per CT scan findings likely aspiration pneumonia
Aspiration precaution
IDDSI 4 diet
#Suspected multiple myeloma
#CKD stage 4
(creatinine baseline 3.5)
Per CT scan osteolytic lesion in the bones worsened from previous imaging
Reportedly with positive monoclonal free light chain ratio on previous hospital stay, was recommended to have OP SPEP/UPEP/ADÁN.
GOC plane discussed with power of manager development (sister) over the phone and she was informed at the SNF that he is not eligible for hospice and she would like now to have more information about it if her brother is eligible for that
bisacodyl suppository
determined that he would not want HD and not good candidate for chemotherapy
Will monitor BMP and UOP here
#Leukopenia and Anemia
likely related to Multiple Myeloma
Recent hospitalization had pancytopenia associated with multiple myeloma
Continue to trend CBC and temperature curve
Diet , Pureed
Thromboprophylaxis - Heparin SQ
CODE STATUS -- DNR
GOC -- Patient's sister wanted to pursue hospice at [facility] though was denied due to no terminal diagnosis, however she was unaware that he was diagnosed with multiple myeloma. With this diagnosis he is hospice appropriate as hemodialysis
and chemotherapy are not being pursued. Planning for hospice at [facility], possibly as soon as Tuesday 11/28
Anticipated Discharge: Today
Subjective/Interval History
-
Date of Service: November 28, 2024
Patient was hard to arouse , arouse on verbal stimuli. Patient will be discharged today to SNF hospice.
Objective Data
-
Vital Signs:
Vital Signs
Temp Pulse Resp BP Pulse Ox
97.2 F 71 18 121/59 94
11/28/24 08:22 11/28/24 08:22 11/28/24 08:22 11/28/24 08:22 11/28/24 08:22
I&O
11/27/24 11/28/24 11/29/24
06:59 06:59 06:59
Intake Total 480 / 480 450 / 450
Output Total 700 / 700
Balance 480 / 255 -250 / -250
Review of Systems
-
History Source: Other (nurses)
Respiratory: Reports Cough
Cardiac: Reports No Symptoms
Abdomen/GI: Reports No Symptoms
Genitourinary: Reports No Symptoms
Musculoskeletal: Reports No Symptoms
Physical Exam
-
General: Appears in Distress
Respiratory: Decreased Breath Sounds (Reduced sounds to the right hemithorax though otherwise clear.)
Cardiac: Regular Rhythm and S1/S2
GI: Tender and Distended
Musculoskeletal: No Clubbing, No Cyanosis and No Edema
Neuro: Awake and Alert
--- NOTE | 2024-11-29 21:58 | W.DCSUMMARY ---
Discharge Summary
Discharge Data
Date of Admission: 11/25/24
Date of Discharge: 11/28/24
-
Pending Results: No
Additional Pending Results:
Discharging Physician:
Flo Hoffman
Disposition:
Hospice at [facility]
Primary Care Physician:
unknown
Principal discharge Diagnosis:
Multiple Myeloma with Met
Hospital Course
84-year-old poor historian male with PMH of CAD s/p stent (2012), COPD, suspected multiple myeloma with CKD, dyslipidemia, hypertension, GERD, BPH, gout, intellectual disability, former smoker, H/O RLE DVT not on AC,congenital hearing loss, speech
impediment. Presenting to the hospital today from [facility] with a complaint of abdomen pain and low appetite for several days. AFVSS upon arrival. Labs with WBC 4, hemoglobin 7.9 with MCV 99.6, creatinine 3.6, BUN 65, total protein 8.9,
albumin 2.9. UA unremarkable. ECG nonischemic, showed NSR. CXR showed 80% opacification of the right hemithorax consistent with large pleural effusion. CT A/P without contrast remonstrated pleural effusion with increased focal density concerning
for malignancy, bilateral lipoid pneumonia, widespread bony metastases, though no signs of bowel obstruction or acute intra-abdominal processes.
Pleuracentesis was done and fluids analysis consistent with malignancy. Patient admitted for large pleural effusion and respiratory insufficiency from likely Multiple Myeloma with Mets.
Patient developed acute hypoxemic respiratory insufficiency due to large exudative right pleural effusion. Suspect malignant process with widespread metastases and likely due to multiple myeloma (multiple myeloma labs was done in October last
admission and consistent with MM).
CT findings of bilateral lipoid pneumonia. Question aspiration of lipoid substances. Had some signs of worsening aspiration during hospitalization and converted to strict n.p.o. evaluated by speech therapist who recommended pureed diet.
He also c/o Abdomen pain. Likely gas pain versus constipation. No signs of acute intra-abdominal processes on CT 11/25.continued home bowel regimen and Bisacodyl suppositories given. He had pancytopenia associated with multiple myeloma.
He has multiple myeloma with CKD 4 (creatinine baseline 3.5). Reportedly with positive monoclonal free light chain ratio on previous hospital stay, was recommended to have OP SPEP/UPEP/ADÁN. GOC on last hospital stay with patient's relative,
determined that he would not want HD and not good candidate for chemotherapy.
Goal of Care -- Patient's sister wanted to pursue hospice at [facility] though was denied due to no terminal diagnosis, however she was unaware that he was diagnosed with multiple myeloma. With this diagnosis he is hospice appropriate as
hemodialysis and chemotherapy are not being pursued. Patient discharged to hospice at [facility].
Important Imaging Findings:
Chest x-ray 11/25/2024
IMPRESSION:
Opacification of approximately 80% of the right hemithorax, significantly increased compared to radiograph of November 02, 2024. See above discussion.
CT Abd/pel Without Iv Or Oral 11/25/2024
IMPRESSION: Moderate to large right pleural effusion which is significantly increased compared to examination March 11, 2024. This effusion has foci of increased density throughout the effusion, and raises concern for a malignant pleural effusion.
Findings compatible with bilateral lipoid pneumonia, involving the right lower lobe, right middle lobe, and posterior aspect of the left lower lobe. See above discussion.
Small amount of free fluid adjacent to the liver and within the pelvic cul-de-sac.
Hepatomegaly.
Mild to moderate gaseous distention of the sigmoid colon, extending into the abdomen. No evidence for bowel obstruction or free intraperitoneal air.
Numerous lytic lesions scattered throughout the skeleton, increasing since examination March 11, 2024. Findings would suggest diffuse neoplastic disease, with leading considerations of multiple myeloma and diffuse bony metastatic disease.
Chest x-ray 11/25/2024
IMPRESSION:
1. LARGE RIGHT PLEURAL EFFUSION which has mildly decreased in size following thoracentesis.
2. LARGE DENSE AIRSPACE CONSOLIDATIONS in the right lower and middle lobes.
3. Mild cardiomegaly.
4. EXTENSIVE MULTIFOCAL LYTIC OSSEOUS MALIGNANCY (either multiple myeloma or metastatic disease).
Abd X-ray 11/26/2024
IMPRESSION:
Findings suggesting mild ileus and constipation.
Chest -X- ray 11/26/2024
IMPRESSION:
Stable large right pleural effusion with associated atelectasis and/or pneumonia.
Important procedures:
Thoracocentesis 11/25/2024
PROCEDURE: Ultrasound-guided thoracentesis, Right.
Discharge Plan
-
Patient Disposition: Correction/SNF
Discharge Diagnosis/Procedures: Multiple Myeloma with Mets
Condition: Fair
Diet: Regular
Activity: As tolerated
Driving Restrictions: Not until seen by your Dr
Bathing Restrictions: OK to Shower
Other Services: Hospice
Referrals:
UNKNOWN - PT DOES,NOT KNOW [Family Provider]
Prescriptions:
Continued
acetaminophen [Tylenol] 325 mg Tablet
650 mg PO Q4HPRN PRN (Reason: mild pain/fever>100.4)
bisacodyl [Dulcolax (bisacodyl)] 10 mg Suppository
10 mg AR [id number] PRN (Reason: if no bm after mom)
pyridoxine (vitamin B6) 100 mg Tablet
100 mg PO DAILY
albuterol sulfate 90 mcg/actuation Hfa Aerosol Inhaler
2 puff INHALATION R Q6HPRN PRN (Reason: sob)
ipratropium bromide 21 mcg (0.03 %) [place],Non-Aerosol
2 spray INTRANASAL BID
finasteride 5 mg Tablet
5 mg PO DAILY
Saline Nasal 0.65 % Aerosol,[place]
1 spray INTRANASAL QIDPRN PRN (Reason: dryness)
lactulose 10 gram/15 mL Solution
10 g PO HSPRN PRN (Reason: constipation )
calcium carbonate-vitamin D3 [Calcium 500 + D] 500 mg-10 mcg (400 unit) Tablet
1 tab PO DAILY
Refresh Optive 0.5-0.9 % Drops
1 drp BOTH EYES BID
sodium chloride 1,000 mg Tablet,Soluble
1,000 mg PO BID
ondansetron 4 mg Tablet,Disintegrating
4 mg PO Q8HPRN PRN (Reason: nausea)
lidocaine 4 % Adhesive Patch,Medicated
2 patch TOPICAL DAILY
Rx Instructions:
APPLY ONE PATCH TO ANTERIOR RIB CAGE AND 1 PATCH TO LEFT SIDE MID POSTERIOR RIB CAGE
duloxetine 20 mg Capsule,Delayed Release(Dr/Ec)
20 mg PO DAILY
polyethylene glycol 3350 17 gram powder in packet
17 g PO BID
sennosides-docusate sodium 8.6-50 mg tablet
2 tab PO BID
cyanocobalamin (vitamin B-12) [Vitamin B-12] 500 mcg Tablet
1,000 mcg PO DAILY Qty: 0 0RF
pantoprazole 40 mg Tablet,Delayed Release (Dr/Ec)
40 mg PO DAILY Qty: 0 0RF
folic acid 1 mg Tablet
1 mg PO DAILY Qty: 0 0RF
furosemide 40 mg Tablet
40 mg PO DAILY Qty: 0 0RF
atorvastatin [Lipitor] 40 mg Tablet
40 mg PO QPM
tamsulosin [Flomax] 0.4 mg Capsule
0.4 mg PO QPM
alum-mag hydroxide-simeth 200-200-20 mg/5 mL Suspension
20 ml PO BIDPRN PRN (Reason: gas)
simethicone 80 mg Tablet,Chewable
80 mg PO TIDPRN PRN (Reason: gas pains)
lubiprostone 8 mcg Capsule
8 mcg PO DAILY
Discharge Orders:
Discharge Patient (As Directed); Ordered 11/28/24
Ordered By: Quincy Grigsby
Discharge Date and Time
Discharge Date/Time: 11/28/24 11:57
Print Language: POLISH
== END 2024-11-28 11:57 | DRG 292 ==
LOC: 4 WEST ACU 17:37
PROVIDERS: Nurse Practitioner; Radiology Vascular & Interventional Radiology; Specialist Research Data Abstracter/Coder; Student in an Organized Health Care Education/Training Program; ADMITTING PHYSICIAN Internal Medicine; ATTENDING PHYSICIAN Hospitalist; EMERGENCY PHYSICIAN Emergency Medicine
PROC: 0W993ZZ Drainage of Right Pleural Cavity, Percutaneous Approach (ICD-10-PCS; 2024-11-25)
DX: I13.0 Hypertensive heart and chronic kidney disease with heart failure and stage 1 through stage 4 chronic kidney disease, or unspecified chronic kidney disease (principal); C90.00 Multiple myeloma not having achieved remission; I50.32 Chronic diastolic (congestive) heart failure; N18.4 Chronic kidney disease, stage 4 (severe); D64.9 Anemia, unspecified; D72.819 Decreased white blood cell count, unspecified; E78.00 Pure hypercholesterolemia, unspecified; F32.A Depression, unspecified; H90.5 Unspecified sensorineural hearing loss; I25.10 Atherosclerotic heart disease of native coronary artery without angina pectoris; J44.9 Chronic obstructive pulmonary disease, unspecified; Z66 Do not resuscitate; Z86.718 Personal history of other venous thrombosis and embolism; Z87.891 Personal history of nicotine dependence; Z95.5 Presence of coronary angioplasty implant and graft
CPT/HCPCS: 32555; 51701; 51798; 71045; 71046; 74018; 74176; 80048; 80053; 80076; 81003; 81015; 82945; 82962; 83615; 83690; 83986; 84157; 85025; 85027; 87015; 87040; 87070; 87205; 88112; 88305; 89051; 92610; 93005; 96374; 96375; 99285